=== PATIENT | female | born 1970 | race Caucasian/White ===

== ENCOUNTER 2022-01-18 11:38 | Observation (INO) ==
--- NOTE | 2022-01-18 11:44 | Emergency Department Note ---
Impression & Plan Acute pancreatitis, T2DM (type 2 diabetes mellitus), Elevated LFTs, Tobacco abuse ED Provider Note NAME: TAMMY CARTER AGE: 51 SEX: F : 1970 ARRIVES VIA: Ambulance INFORMANT: Patient, ED PROVIDER(S): Neymar Lemus MD Chief Complaint: Abdominal pain, chest pain, outpatient referral HPI: Patient was seen in the outpatient setting today due to concern for abdominal pain and chest pain. Patient states that her chest pain is achy and located across the anterior chest. No prior history of any heart disease but the patient does smoke. The patient denies any cough or fever. Patient states she does not take anything for her symptoms at home. The patient is associated mild diffuse abdominal pain with diarrhea. The patient does state that she has not seen any blood in the urine or stool. The patient denies any dysuria states sometimes she feels as though she might have some retention. Patient denies any alcohol use but the patient does use tobacco. Patient did not take anything for pain prior to arrival. Patient states that the pain has been fairly constant and that this began this morning. Patient states is 10 out of 10. The patient was seen in the outpatient setting and referred here for further evaluation and treatment. Per nursing report the patient was picked up by the ambulance standing outside of the clinic office as the patient had gone for smoke. ROS: See HPI for pertinent positives and negatives. A total of 10 systems were reviewed and otherwise negative. Past medical history: See below Surgical history: See below Social history: See below Physical Exam: GENERAL: NAD, wearing a mask, non-toxic. EYE EXAM: Normal conjunctiva. PERRL, no anisocoria and EOM's grossly intact w/o pain. OROPHARYNX: Dry mucus membranes. Grossly normal dentition. NECK: Supple, no nuchal rigidity, no adenopathy, non-tender. No signs of meningismus. LUNGS: Scant end inspiratory wheeze bilaterally. No obvious rhonchi. Normal chest wall mechanics. HEART: Tachycardic and regular, no MRG. ABDOMEN: Abdomen soft, mild diffuse discomfort, normo-active bowel sounds, no masses, no rebound or guarding. BACK: No CVA TTP. SKIN: No rashes and no bruising. UPPER EXTREMITIES: Upper extremities are grossly normal. LOWER EXTREMITIES: Grossly normal, no edema. NEURO EXAM: A&O x3, cranial nerves II-XII grossly intact, normal speech, moves all 4 extremities on command w/o issue. Differential diagnoses: Appendicitis, ovarian cyst, ovarian torsion, ectopic , TOA, PID, infections, diverticulitis, UTI, obstruction, mesenteric ischemia, aortic pathology, inflammatory bowel disease, renal colic, PUD, pancreatitis, biliary pathology, hernia, volvulus, constipation, as well as oth er pathologies. Cardiac ischemia, aortic dissection, pulmonary embolism, pneumothorax, pneumonia, pericarditis, myocarditis, esophageal rupture, GERD, cholecystitis, pancreatitis, musculoskeletal, as well as other pathologies. Course: Patient was seen and evaluated the bedside. Full history physical exam was performed. EKG interpreted by me Sinus tachycardia, first-degree AV block, rate of 112, prolonged MO, normal axis, normal QRS, no obvious ST changes. Motion artifact in V4. Imaging Studies: See Below Cardiac monitoring: An order was placed for continuous cardiac monitoring. The monitor shows a rate of 95 with sinus rhythm. MDM: Patient was seen due to concern for chest and abdominal pain. Blood work obtained along with a CT of the abdomen pelvis EKG and troponin. Patient was treated symptomatically with pain and nausea medication. Patient letter showed a normal white count H&H and platelet count. Kidney function was unremarkable. Patient does have an elevated BSG with associated pseudohyponatremia. Anion gap is slightly elevated at 13 but bicarb is normal. Believe DKA to be less likely. The patient did receive IV fluids. The patient does have mild transaminitis and elevation in lipase. Patient's urinalysis does not show obvious infection but does show ketones and glucose. The patient did receive IV fluids. Chest x- ray is clear. CT abdomen pelvis does show acute pancreatitis. No peripancreatic fluid collection. Patient does have hepatomegaly and hepatic steatosis. I did speak with the on-call hospitalist Gabe Ortega PA-C and the patient was admitted by Dr. Price. Past Med/Surg History Medical History Anxiety Bipolar 1 disorder Diabetic neuropathy Fatty liver HLD (hyperlipidemia) Hx of migraines Hypothyroidism T2DM (type 2 diabetes mellitus) Tobacco abuse Surgical History History of bilateral hip arthroplasty History of reduction mammoplasty Family History Mother CAMPUZANO (nonalcoholic steatohepatitis) Father Bipolar disorder Social History Smoking Status: Current every day smoker Tobacco Type: Cigarettes packs per day: 1; Do You Dip or Chew Tobacco: No; Tobacco Cessation Education Requested by Patient: No Hx Alcohol Use: No Hx Substance Use: No Preferred Language: Syrian Communication Ability: Effective Current Living Situation: Alone Feels Safe at Home: Yes Allergies Allergies Allergy/AdvReac Type Severity Reaction Status Date / Time cephalexin [From Keflex] Allergy Severe Vomiting Unverified 01/18/22 12:04 Sulfa (Sulfonamide Allergy Severe Vomiting Unverified 01/18/22 12:04 Antibiotics) Home Meds Home Medications Medication Instructions Recorded Confirmed amitriptyline 100 mg tablet 100 mg PO HS 01/18/22 01/18/22 atorvastatin 40 mg tablet 40 mg PO DAILY 01/18/22 01/18/22 doxepin 100 mg capsule 100 mg PO PM 01/18/22 01/18/22 dulaglutide 1.5 mg/0.5 mL 1.5 mg SUBCUT WK 01/18/22 01/18/22 subcutaneous pen injector (Trulicity) fremanezumab-vfrm 225 mg/1.5 mL 1 mg SUBCUT MONTHLY 01/18/22 01/18/22 subcutaneous syringe (Ajovy Syringe) magnesium oxide 400 mg PO DAILY 01/18/22 01/18/22 metformin 500 mg tablet,extended 500 mg PO QAM 01/18/22 01/18/22 release 24 hr pregabalin 75 mg capsule 150 mg PO HS 01/18/22 01/18/22 Results & Data (ED) Vital Signs Vital Signs - 24 hr 01/18/22 11:49 01/18/22 12:20 01/18/22 14:30 Temperature 36.9 C Temperature Source Oral Pulse Rate 81 Pulse Rate [Left Finger] 78 Pulse Rhythm Regular Pulse Rhythm [Left Finger] Regular Pulse Strength Normal Pulse Strength [Left Finger] Normal Respiratory Rate 16 16 Respiratory Effort / Characteristics Non-Labored Spontaneous Non-Labored Respiratory Depth Normal Normal Respiratory Pattern Regular Blood Pressure 156/116 H Blood Pressure [Left Arm] 185/99 H Blood Pressure Mean 129 Blood Pressure Mean [Left Arm] 127 Blood Pressure Position Sitting Blood Pressure Position [Left Arm] Standing Pulse Oximetry 93 98 97 Oxygen Delivery Method Room Air Room Air Room Air Sepsis Recent Fever Within 48 Hours No Sepsis New/Unexplained Change in Mental Status N/A Sepsis Action Taken by Nursing No Action Required Home Medications Current Medication List: was personally reviewed by me Laboratory Data Attestation: I reviewed the patient's lab results. Result diagrams: 01/18/22 12:12 01/18/22 12:12 Lab Results 01/18/22 01/18/22 01/18/22 Range/Units 12:12 12:12 12:12 WBC 9.75 (4.8-10.8) K/uL RBC 5.24 (4.2-5.4) M/uL Hgb 16.0 (12.0-16.0) g/dL Hct 45.1 (37-47) % MCV 86.1 (80-100) fL MCH 30.5 (25-34) pg MCHC 35.5 (32-36) g/dL RDW Std Deviation 40.9 (36.4-46.3) fL RDW Coeff of Javier 13.0 (11.5-14.5) % Plt Count 206 (130-400) K/uL MPV 10.8 H (7.4-10.4) fL Immature Gran % (Auto) 0.2 % Neut % (Auto) 64.9 % Lymph % (Auto) 27.2 % Jack % (Auto) 4.1 % Eos % (Auto) 2.9 % Baso % (Auto) 0.7 % Neut # (Auto) 6.33 (1.4-6.5) K/uL Lymph # (Auto) 2.65 (1.2-3.4) K/uL Jack # (Auto) 0.40 (0.11-0.59) K/uL Eos # (Auto) 0.28 (0-0.5) K/uL Baso # (Auto) 0.07 (0-0.2) K/uL Immature Gran # (Auto) 0.02 (0.00-0.02) K/uL Sodium 128 L (136-145) mmol/L Potassium 4.0 (3.5-5.1) mmol/L Chloride 93 L (98-107) mmol/L Carbon Dioxide 22 (21-32) mmol/L Anion Gap 13 H (3-11) BUN 17 (6-23) mg/dl Creatinine 1.04 (0.6-1.2) mg/dl Est Cr Clr Drug Dosing Not Reportable Est GFR ( Amer) 71.0 ml/min Est GFR (Non-Af Amer) 61.3 ml/min BUN/Creatinine Ratio 16.3 (10-20) Glucose 500 H* (70-99(Fasting)) mg/dl Calcium 9.9 (8.5-10.1) mg/dl Total Bilirubin 0.5 (0.2-1.0) mg/dl AST 70 H (13-39) U/L ALT 69 H (7-52) U/L Alkaline Phosphatase 175 H (34-104) U/L Troponin I < 0.03 (0-0.04) ng/ml Total Protein 8.0 (6.0-8.3) gm/dl Albumin 4.4 (3.4-5.0) gm/dl Globulin 3.6 (2.5-4.0) gm/dl Albumin/Globulin Ratio 1.2 (0.9-2) Lipase 211 H (11-82) U/L Urine Color Urine Appearance (Clear) Urine pH (4.5-7.5) Ur Specific Compton (1.000-1.030) Urine Protein (Negative) Urine Glucose (UA) (Negative) Urine Ketones (Negative) Urine Blood (Negative) Urine Nitrite (Negative) Urine Bilirubin (Negative) Urine Urobilinogen (Negative) Ur Leukocyte Esterase (Negative) Salicylates < 3.0 L (3.0-30) mg/dl Acetaminophen < 3 L (10-30) ug/ml Ethyl Alcohol mg/dL (<10.0) mg/dl 01/18/22 01/18/22 Range/Units 12:12 14:00 WBC (4.8-10.8) K/uL RBC (4.2-5.4) M/uL Hgb (12.0-16.0) g/dL Hct (37-47) % MCV (80-100) fL MCH (25-34) pg MCHC (32-36) g/dL RDW Std Deviation (36.4-46.3) fL RDW Coeff of Javier (11.5-14.5) % Plt Count (130-400) K/uL MPV (7.4-10.4) fL Immature Gran % (Auto) % Neut % (Auto) % Lymph % (Auto) % Jack % (Auto) % Eos % (Auto) % Baso % (Auto) % Neut # (Auto) (1.4-6.5) K/uL Lymph # (Auto) (1.2-3.4) K/uL Jack # (Auto) (0.11-0.59) K/uL Eos # (Auto) (0-0.5) K/uL Baso # (Auto) (0-0.2) K/uL Immature Gran # (Auto) (0.00-0.02) K/uL Sodium (136-145) mmol/L Potassium (3.5-5.1) mmol/L Chloride (98-107) mmol/L Carbon Dioxide (21-32) mmol/L Anion Gap (3-11) BUN (6-23) mg/dl Creatinine (0.6-1.2) mg/dl Est Cr Clr Drug Dosing Est GFR ( Amer) ml/min Est GFR (Non-Af Amer) ml/min BUN/Creatinine Ratio (10-20) Glucose (70-99(Fasting)) mg/dl Calcium (8.5-10.1) mg/dl Total Bilirubin (0.2-1.0) mg/dl AST (13-39) U/L ALT (7-52) U/L Alkaline Phosphatase (34-104) U/L Troponin I (0-0.04) ng/ml Total Protein (6.0-8.3) gm/dl Albumin (3.4-5.0) gm/dl Globulin (2.5-4.0) gm/dl Albumin/Globulin Ratio (0.9-2) Lipase (11-82) U/L Urine Color Yellow Urine Appearance Clear (Clear) Urine pH 6.5 (4.5-7.5) Ur Specific Compton 1.043 H (1.000-1.030) Urine Protein Negative (Negative) Urine Glucose (UA) 3+ H (Negative) Urine Ketones Trace H (Negative) Urine Blood Negative (Negative) Urine Nitrite Negative (Negative) Urine Bilirubin Negative (Negative) Urine Urobilinogen Negative (Negative) Ur Leukocyte Esterase Negative (Negative) Salicylates (3.0-30) mg/dl Acetaminophen (10-30) ug/ml Ethyl Alcohol mg/dL < 10.0 (<10.0) mg/dl Administered Medications Lactated Ringer's (Lr) 1,000 mls @ 200 mls/hr IV .Q5H VILLA Stop: 02/17/22 16:41 Last Admin: 01/18/22 17:01 Dose: 200 mls/hr Documented by: [id number] Discontinued Medications Sodium Chloride (Nss 1000ml) 1,000 mls @ 999 mls/hr IV .Q1H1M STA Stop: 01/18/22 13:01 Last Infusion: 01/18/22 13:34 Dose: 0 mls/hr Documented by: [id number] Admin: 01/18/22 12:17 Dose: 999 mls/hr Documented by: [id number] Sodium Chloride (Nss) 500 mls @ 999 mls/hr IV .Q31M ONE Stop: 01/18/22 14:15 Last Admin: 01/18/22 14:18 Dose: 999 mls/hr Documented by: [id number] Insulin Human Regular (Novolin-R Insulin Per Unit Charge) 8 units IV NOW STA Stop: 01/18/22 15:02 Last Admin: 01/18/22 15:13 Dose: 8 units Documented by: [id number] Cosigned by: [id number] Ioversol (Optiray 320 100ml) 94 ml IV ONCE ONE Stop: 01/18/22 14:06 Last Admin: 01/18/22 14:05 Dose: 94 ml Documented by: [id number] Lorazepam (Lorazepam 2 Mg/1 Ml Vial) 1 mg IV NOW STA Stop: 01/18/22 12:02 Last Admin: 01/18/22 12:17 Dose: 1 mg Documented by: [id number] Morphine Sulfate (Morphine Sulfate 2 Mg/Ml Carp) 2 mg IV NOW STA Stop: 01/18/22 15:49 Last Admin: 01/18/22 16:25 Dose: 2 mg Documented by: [id number] Ondansetron HCl (Ondansetron Inj 2 Mg/Ml 2 Ml Vial) 4 mg IV NOW STA Stop: 01/18/22 12:02 Last Admin: 01/18/22 12:17 Dose: 4 mg Documented by: [id number] Ondansetron HCl (Ondansetron Inj 2 Mg/Ml 2 Ml Vial) 4 mg IV NOW STA Stop: 01/18/22 13:46 Last Admin: 01/18/22 14:17 Dose: 4 mg Documented by: [id number] Imaging Data Radiologist's Impression: Abdomen/Pelvis CT 01/18/22 12:01 CT SCAN OF THE ABDOMEN AND PELVIS WITH IV CONTRAST CLINICAL HISTORY: Generalized abdominal pain. Nausea and vomiting. Elevated lipase and hepatic transaminases. COMPARISON STUDY: Lumbar spine radiographs dated 03/16/2021. TECHNIQUE: Following the IV administration of 24 cc of Optiray 320, CT scan of the abdomen and pelvis is performed from the lung bases to the proximal femora. Images are reviewed in the axial, sagittal, and coronal planes. IV contrast was administered without complication. A dose lowering technique was utilized a dhering to the principles of ALARA. CT DOSE: 562.03 mGy.cm FINDINGS: Lung bases: The heart is normal in size and without pericardial effusion. The lung bases are clear. There is a small hiatal hernia. Liver: The contrast-enhanced liver is enlarged, measuring 22.9 cm in length. The liver demonstrates diffusely diminished attenuation consistent with severe hepatic steatosis. Fatty sparing is noted adjacent to gallbladder fossa. Nodularity of the surface contour suggests early change of cirrhosis. There is no intrahepatic biliary ductal dilatation. The hepatic veins and portal veins are patent. Gallbladder: Unremarkable. Spleen: Normal in size and attenuation. Pancreas: The pancreatic head and neck appear enlarged and edematous with surrounding inflammation and fluid. The appearance is typical for acute pancr eatitis. The pancreatic duct is normal in caliber. The gland enhances throughout. No organized peripancreatic fluid collection is identified. The splenic vein is patent. Adrenal glands: Unremarkable. Kidneys: The contrast enhanced kidneys are normal in size and without hydronephrosis. The kidneys enhance symmetrically. Abdominal vasculature: The abdominal aorta is normal in course and caliber. Bowel: Moderate fecal retention is seen throughout the colon. No bowel obstruction is identified. Wall thickening of the duodenum is likely related to adjacent pancreatitis. The appendix is well-visualized and normal. Peritoneum: There is no intraperitoneal free air or abdominal ascites. Lymphadenopathy: None. Pelvic viscera: Evaluation of the pelvis is severely degraded by streak artifact from bilateral hip arthroplasties. The bladder, uterus, and adnexa are normal as imaged. Skeletal structures: No lytic or blastic lesions are seen. Bilateral hip arthroplasties are in place. IMPRESSION: 1. Findings are consistent with acute pancreatitis. 2. The gland enhances throughout and no organized peripancreatic fluid collection is identified. 3. Hepatomegaly and severe hepatic steatosis. 4. Nodularity of the hepatic surface contour suggests early morphologic change of cirrhosis. 5. Additional findings as above. ACT 112: Negative or not required by law. Electronically signed by: Ranjit Colindres M.D. 01/18/2022 2:15 PM Chest X-Ray 01/18/22 13:46 XR chest 1V portable HISTORY: Atypical chest pain COMPARISON: None. FINDINGS: The lungs are clear. Cardiac silhouette is normal in size. No pleural effusions. No pneumothorax. IMPRESSION: No acute process. ACT 112: Negative or not required by law. Electronically signed by: Yash Biggs M.D. 01/18/2022 2:18 PM Discharge Plan Visit Data Chief Complaint: Abdominal Pain ED Provider: Neymar Lemus Discharge Problem: Acute pancreatitis, T2DM (type 2 diabetes mellitus), Elevated LFTs, Tobacco abuse Patient Disposition: Admitted As Inpatient Discharge Instructions Interventions: ED Discharge Assessment Last Done: 01/18/22 16:30
[2022-01-18] MEDS ORDERED: ONDANSETRON INJ 2 MG/ML 2 ML VIAL IV STA ×2 (12:01→13:45)
[2022-01-18] MEDS ORDERED: LORazepam 2 MG/1 ML VIAL IV STA (12:01)
[2022-01-18] MEDS ORDERED: SODIUM CHLORIDE 0.9% 1000ML 1,000 ML IV STA (12:01)
[2022-01-18 12:38] LABS: Basophils # (auto) 0.07 K/uL (0-0.2); Basophils % (auto) 0.7 %; Eosinophils # (auto) 0.28 K/uL (0-0.5); Eosinophils % (auto) 2.9 %; Hematocrit (blood only) 45.1 % (37-47); Immature Granulocytes # (auto) 0.02 K/uL (0.00-0.02); Immature Granulocytes % (auto) 0.2 %; Lymphocytes # (auto) 2.65 K/uL (1.2-3.4); Lymphocytes % (auto) 27.2 %; Mean Corpuscular Hemoglobin 30.5 pg (25-34); Mean Corpuscular Hgb Conc 35.5 g/dL (32-36); Mean Corpuscular Volume 86.1 fL (80-100); Mean Platelet Volume 10.8 fL (7.4-10.4); Monocytes % (auto) 4.1 %; Neutrophils # (auto) 6.33 K/uL (1.4-6.5); Neutrophils % (auto) 64.9 %; Platelet Count 206 K/uL (130-400); RDW Standard Deviation 40.9 fL (36.4-46.3); Red Blood Count 5.24 M/uL (4.2-5.4); White Blood Count 9.75 K/uL (4.8-10.8)
[2022-01-18 13:10] LABS: Acetaminophen < 3 ug/ml (10-30); Salicylate < 3.0 mg/dl (3.0-30); Troponin I < 0.03 ng/ml (0-0.04)
[2022-01-18 13:25] LABS: Alanine Aminotransferase 69 U/L (7-52); Albumin Globulin Ratio 1.2 (0.9-2); Albumin Level 4.4 gm/dl (3.4-5.0); Alkaline Phosphatase 175 U/L (34-104); Anion Gap 13 (3-11); Aspartate Aminotransferase 70 U/L (13-39); BUN Creatinine Ratio 16.3 (10-20); Bilirubin,Total 0.5 mg/dl (0.2-1.0); Blood Urea Nitrogen 17 mg/dl (6-23); Calcium 9.9 mg/dl (8.5-10.1); Carbon Dioxide 22 mmol/L (21-32); Chloride 93 mmol/L (98-107); Est GFR (Non-African American) 61.3 ml/min; Globulin 3.6 gm/dl (2.5-4.0); Glucose 500 mg/dl (70-99(Fasting)); Lipase 211 U/L (11-82); Sodium 128 mmol/L (136-145)
[2022-01-18] MEDS ORDERED: SODIUM CHLORIDE 0.9% 500 ML IV ONE (13:45)
[2022-01-18] MEDS ORDERED: OPTIRAY 320 100ml IV ONE (14:05)
--- NOTE | 2022-01-18 14:17 | CT Scan Report ---
CT SCAN OF THE ABDOMEN AND PELVIS WITH IV CONTRAST CLINICAL HISTORY: Generalized abdominal pain. Nausea and vomiting. Elevated lipase and hepatic parker saminases. COMPARISON STUDY: Lumbar spine radiographs dated 03/16/2021. TECHNIQUE: Following the IV administration of 24 cc of Optiray 320, CT scan of the abdomen and pelvi s is performed from the lung bases to the proximal femora. Images are reviewed in the axial, sagittal , and coronal planes. IV contrast was administered without complication. A dose lowering technique wa s utilized adhering to the principles of ALARA. CT DOSE: 562.03 mGy.cm FINDINGS: Lung bases: The heart is normal in size and without pericardial effusion. The lung bases are clear. T here is a small hiatal hernia. Liver: The contrast-enhanced liver is enlarged, measuring 22.9 cm in length. The liver demonstrates d iffusely diminished attenuation consistent with severe hepatic steatosis. Fatty sparing is noted prince cent to gallbladder fossa. Nodularity of the surface contour suggests early change of cirrhosis. Ther e is no intrahepatic biliary ductal dilatation. The hepatic veins and portal veins are patent. Gallbladder: Unremarkable. Spleen: Normal in size and attenuation. Pancreas: The pancreatic head and neck appear enlarged and edematous with surrounding inflammation an d fluid. The appearance is typical for acute pancreatitis. The pancreatic duct is normal in caliber. The gland enhances throughout. No organized peripancreatic fluid collection is identified. The spleni c vein is patent. Adrenal glands: Unremarkable. Kidneys: The contrast enhanced kidneys are normal in size and without hydronephrosis. The kidneys enh ance symmetrically. Abdominal vasculature: The abdominal aorta is normal in course and caliber. Bowel: Moderate fecal retention is seen throughout the colon. No bowel obstruction is identified. Wal l thickening of the duodenum is likely related to adjacent pancreatitis. The appendix is well-visual ized and normal. Peritoneum: There is no intraperitoneal free air or abdominal ascites. Lymphadenopathy: None. Pelvic viscera: Evaluation of the pelvis is severely degraded by streak artifact from bilateral hip a rthroplasties. The bladder, uterus, and adnexa are normal as imaged. Skeletal structures: No lytic or blastic lesions are seen. Bilateral hip arthroplasties are in place. IMPRESSION: 1. Findings are consistent with acute pancreatitis. 2. The gland enhances throughout and no organized peripancreatic fluid collection is identified. 3. Hepatomegaly and severe hepatic steatosis. 4. Nodularity of the hepatic surface contour suggests early morphologic change of cirrhosis. 5. Additional findings as above. ACT 112: Negative or not required by law. Electronically signed by: Ranjit Colindres M.D. 01/18/2022 2:15 PM
--- NOTE | 2022-01-18 14:19 | XRay Report ---
XR chest 1V portable HISTORY: Atypical chest pain COMPARISON: None. FINDINGS: The lungs are clear. Cardiac silhouette is normal in size. No pleural effusions. No pneumot horax. IMPRESSION: No acute process. ACT 112: Negative or not required by law. Electronically signed by: Yash Biggs M.D. 01/18/2022 2:18 PM
[2022-01-18 14:39] LABS: Appearance Urine Clear (Clear); Bilirubin Urine Negative (Negative); Blood Urine Negative (Negative); Color Urine Yellow; Glucose Urine UA 3+ (Negative); Ketones Urine Trace (Negative); Leukocyte Esterase Urine Negative (Negative); Nitrite Urine Negative (Negative); Protein Urine Negative (Negative); Specific Gravity Urine 1.043 (1.000-1.030); Urobilinogen Urine Negative (Negative); pH Urine 6.5 (4.5-7.5)
[2022-01-18] MEDS ORDERED: NovoLIN-R INSULIN PER UNIT CHARGE IV STA (15:01)
[2022-01-18] MEDS ORDERED: LACTATED RINGER'S 1,000 ML IV SCH (15:15)
--- NOTE | 2022-01-18 15:37 | History & Physical Report ---
Date of Service January 18, 2022 Assessment & Plan (1) Acute pancreatitis: (2) Elevated LFTs: (3) T2DM (type 2 diabetes mellitus): (4) Bipolar 1 disorder: (5) Tobacco abuse: Plan: This is a 51-year-old female who has significant past medical history of uncontrolled T2DM, diabetic autonomic neuropathy, HLD, hypothyroidism, bipolar disorder type I, anxiety, tobacco abuse who presents to ED secondary to abdominal pain x1 day. Acute pancreatitis Elevated LFTs Admit to med telemetry secondary to hyperglycemia Continue IV fluids with LR at 200/h bowel rest, NPO Analgesia as needed Consult gastroenterology CT abdomen pelvis revealed findings consistent with acute pancreatitis, hepatomegaly and severe hepatic steatosis were also noted along with early morphologic changes of cirrhosis No evidence of biliary obstruction Obtain lipid panel in a.m. obtain hepatitis panel T2DM, uncontrolled A1c 10.5 as outpatient, 11/2021 On Metformin and Trulicity as outpatient, will hold BSG 500 on arrival, give 8 units IV regular insulin x1 now Lantus/NovoLog per protocol, glycemic pharmacy consulted Obtain A1c in a.m. Pseudohyponatremia in setting of hyperglycemia Corrected sodium 134, monitor with hydration Tobacco abuse Smoking cessation, patient declines nicotine patch Bipolar disorder Anxiety Continue amitriptyline and doxepin DVT prophylaxis: Lovenox Dispo: Med telemetry until blood sugar more stable and then can transfer up to [facility] PCP: [facility] Full code Patient was seen and examined in collaboration with Dr. Price, please see addendum History of Present Illness Chief Complaint: Abdominal pain x1 day. Primary Care Provider: Asher Hurtado MD This is a 51-year-old female who has significant past medical history of uncontrolled T2DM, diabetic autonomic neuropathy, HLD, hypothyroidism, bipolar disorder type I, anxiety, tobacco abuse who presents to ED secondary to abdominal pain x1 day. She states she was in her normal state of health yeste rday. She woke up this morning with excruciating epigastric pain that was nonradiating. Pain is currently rated as a 10 out of 10. Nothing has improved pain. Movement and touching abdomen makes pain worse. She has never experienced this before. She denies any alcohol use. She is a daily tobacco user at half a pack to a pack a day. She denies any illicit drug use or significant NSAID use. She does take occasional Excedrin secondary to history of migraines. Her last migraine was this morning. She denies taking her medications this morning. She admits to recently starting Lyrica ~ 1 week ago. She denies any recent fever, chills, sweats, lightheadedness, dizziness, syncope, chest pain, shortness of breath, cough, URI symptoms, dysuria, increased urgency or frequency with urination, melena or hematochezia. She further denies any hematemesis or hemoptysis. She does complain of nausea and vomiting. She describes the vomiting as bilious-like material. Overall has had poor appetite today and only drank 1 sparkling grape juice. Her appetite was normal yesterday. Denies recent surgery. In ED patient remained hemodynamically stable although significantly hypertensive. Her lab work was consistent with elevated lipase at 211, AST 70, ALT 69, alk phos 175, glucose 500, corrected sodium of 134. She received 1 L of IV fluid, IV Zofran and oral lorazepam prior to my evaluation. Her epic chart was reviewed and no prior cardiac testing was able to be found. Her most recent A1c was 10.5 on 11/16/2021. Allergies Allergy/AdvReac Type Severity Reaction Status Date / Time cephalexin [From Keflex] Allergy Severe Vomiting Unverified 01/18/22 12:04 Sulfa (Sulfonamide Allergy Severe Vomiting Unverified 01/18/22 12:04 Antibiotics) Home Medications Medication Instructions Recorded Confirmed Type amitriptyline 100 mg tablet 100 mg PO HS 01/18/22 01/18/22 History atorvastatin 40 mg tablet 40 mg PO DAILY 01/18/22 01/18/22 History doxepin 100 mg capsule 100 mg PO PM 01/18/22 01/18/22 History dulaglutide 1.5 mg/0.5 mL 1.5 mg SUBCUT WK 01/18/22 01/18/22 History subcutaneous pen injector (Trulicity) fremanezumab-vfrm 225 mg/1.5 mL 1 mg SUBCUT MONTHLY 01/18/22 01/18/22 History subcutaneous syringe (Ajovy Syringe) magnesium oxide 400 mg PO DAILY 01/18/22 01/18/22 History metformin 500 mg tablet,extended 500 mg PO QAM 01/18/22 01/18/22 History release 24 hr pregabalin 75 mg capsule 150 mg PO HS 01/18/22 01/18/22 History Past Med/Surg History Medical History (Updated 01/18/22 @ 15:31 by Cassie Gordon PA-C) Anxiety Bipolar 1 disorder Diabetic neuropathy Fatty liver HLD (hyperlipidemia) Hx of migraines Hypothyroidism T2DM (type 2 diabetes mellitus) Tobacco abuse Surgical History (Updated 01/18/22 @ 15:28 by Cassie Gordon PA-C) History of bilateral hip arthroplasty History of reduction mammoplasty Family History (Updated 01/18/22 @ 15:28 by Cassie Gordon PA-C) Mother CAMPUZANO (nonalcoholic steatohepatitis) Father Bipolar disorder Social History (Updated 01/18/22 @ 15:28 by Cassie Gordon PA-C) Smoking Status: Current every day smoker Tobacco Type: Cigarettes packs per day: 1; Do You Dip or Chew Tobacco: No; Tobacco Cessation Education Requested by Patient: No Hx Alcohol Use: No Hx Substance Use: No Preferred Language: Panamanian Communication Ability: Effective Current Living Situation: Alone Feels Safe at Home: Yes Review of Systems Review of Systems: All systems reviewed & are unremarkable except as noted in HPI & below Physical Exam Physical Exam: Constitutional: WD/WN, F, anxious, flight of ideas and very tangential in conversation, vitals as above, NAD, sitting up in bed, pleasant, conversing easily Head: Normocephalic, Atraumatic Eyes: PERRL, conjunctivae normal, anicteric sclerae ENMT: external ear and nose normal, oropharynx normal Neck: trachea midline, no thyromegaly normal visual inspection Respiratory: normal respiratory effort, lungs clear to auscultation, no wheeze, rales, rhonchi. Normal insp/exp effort, no accessory muscle use Cardiovascular: RRR, no murmur, no edema Vessels: no JVD or carotid bruit Chest: normal inspection of chest Abdomen: normal bowel sounds, soft, +pain to palpation in epigastrum Musculoskeletal: no cyanosis or clubbing, extremities motor strength 5/5 Skin: no rashes, warm and dry normal turgor Neurologic: PERRL, EOMI, accommodation nl, no face palsy, no dysarthria CN's II-XI intact bilaterally and moves all extremities Psychiatric: A+Ox3, euthymic affect Lymphatic: no cervical or axillary lymphadenopathy : deferred Results & Data Results & Data ([facility]) Vital Signs (Past 12 Hours) Vital Signs Temp Pulse Pulse Resp BP BP Pulse Ox 01/18/22 14:30 78 16 185/99 H 97 01/18/22 12:20 98 01/18/22 11:49 36.9 C 81 16 156/116 H 93 Diagnostic Findings Abdomen/Pelvis CT 01/18/22 12:01 CT SCAN OF THE ABDOMEN AND PELVIS WITH IV CONTRAST CLINICAL HISTORY: Generalized abdominal pain. Nausea and vomiting. Elevated lipase and hepatic transaminases. COMPARISON STUDY: Lumbar spine radiographs dated 03/16/2021. TECHNIQUE: Following the IV administration of 24 cc of Optiray 320, CT scan of the abdomen and pelvis is performed from the lung bases to the proximal femora. Images are reviewed in the axial, sagittal, and coronal planes. IV contrast was administered without complication. A dose lowering technique was utilized adhering to the principles of ALARA. CT DOSE: 562.03 mGy.cm FINDINGS: Lung bases: The heart is normal in size and without pericardial effusion. The lung bases are clear. There is a small hiatal hernia. Liver: The contrast-enhanced liver is enlarged, measuring 22.9 cm in length. The liver demonstrates diffusely diminished attenuation consistent with severe hepatic steatosis. Fatty sparing is noted adjacent to gallbladder fossa. No dularity of the surface contour suggests early change of cirrhosis. There is no intrahepatic biliary ductal dilatation. The hepatic veins and portal veins are patent. Gallbladder: Unremarkable. Spleen: Normal in size and attenuation. Pancreas: The pancreatic head and neck appear enlarged and edematous with surrounding inflammation and fluid. The appearance is typical for acute pancreatitis. The pancreatic duct is normal in caliber. The gland enhances throughout. No organized peripancreatic fluid collection is identified. The splenic vein is patent. Adrenal glands: Unremarkable. Kidneys: The contrast enhanced kidneys are normal in size and without hydronephrosis. The kidneys enhance symmetrically. Abdominal vasculature: The abdominal aorta is normal in course and caliber. Bowel: Moderate fecal retention is seen throughout the colon. No bowel obstruction is identified. Wall thickening of the duodenum is likely related to adjacent pancreatitis. The appendix is well-visualized and normal. Peritoneum: There is no intraperitoneal free air or abdominal ascites. Lymphadenopathy: None. Pelvic viscera: Evaluation of the pelvis is severely degraded by streak artifact from bilateral hip arthroplasties. The bladder, uterus, and adnexa are normal as imaged. Skeletal structures: No lytic or blastic lesions are seen. Bilateral hip arthroplasties are in place. IMPRESSION: 1. Findings are consistent with acute pancreatitis. 2. The gland enhances throughout and no organized peripancreatic fluid collection is identified. 3. Hepatomegaly and severe hepatic steatosis. 4. Nodularity of the hepatic surface contour suggests early morphologic change of cirrhosis. 5. Additional findings as above. ACT 112: Negative or not required by law. Electronically signed by: Ranjit Colindres M.D. 01/18/2022 2:15 PM Chest X-Ray 01/18/22 13:46 XR chest 1V portable HISTORY: Atypical chest pain COMPARISON: None. FINDINGS: The lungs are clear. Cardiac silhouette is normal in size. No pleural effusions. No pneumothorax. IMPRESSION: No acute process. ACT 112: Negative or not required by law. Electronically signed by: Yash Biggs M.D. 01/18/2022 2:18 PM Medications Administered Medication List Discontinued Medications Sodium Chloride (Nss 1000ml) 1,000 mls @ 999 mls/hr IV .Q1H1M STA Stop: 01/18/22 13:01 Last Infusion: 01/18/22 13:34 Dose: 0 mls/hr Documented by: [id number] Admin: 01/18/22 12:17 Dose: 999 mls/hr Documented by: [id number] Sodium Chloride (Nss) 500 mls @ 999 mls/hr IV .Q31M ONE Stop: 01/18/22 14:15 Last Admin: 01/18/22 14:18 Dose: 999 mls/hr Documented by: [id number] Insulin Human Regular (Novolin-R Insulin Per Unit Charge) 8 units IV NOW STA Stop: 01/18/22 15:02 Last Admin: 01/18/22 15:13 Dose: 8 units Documented by: [id number] Cosigned by: [id number] Ioversol (Optiray 320 100ml) 94 ml IV ONCE ONE Stop: 01/18/22 14:06 Last Admin: 01/18/22 14:05 Dose: 94 ml Documented by: [id number] Lorazepam (Lorazepam 2 Mg/1 Ml Vial) 1 mg IV NOW STA Stop: 01/18/22 12:02 Last Admin: 01/18/22 12:17 Dose: 1 mg Documented by: [id number] Ondansetron HCl (Ondansetron Inj 2 Mg/Ml 2 Ml Vial) 4 mg IV NOW STA Stop: 01/18/22 12:02 Last Admin: 01/18/22 12:17 Dose: 4 mg Documented by: [id number] Ondansetron HCl (Ondansetron Inj 2 Mg/Ml 2 Ml Vial) 4 mg IV NOW STA Stop: 01/18/22 13:46 Last Admin: 01/18/22 14:17 Dose: 4 mg Documented by: [id number] ECG Rate (beats per minute): 112 Rhythm: sinus tachycardia COVID-19 Results Results COVID-19 Adm Lab Results: RBC 5.24 M/uL (4.2-5.4) 01/18/22 WBC 9.75 K/uL (4.8-10.8) 01/18/22 Hgb 16.0 g/dL (12.0-16.0) 01/18/22 Hct 45.1 % (37-47) 01/18/22 Plt Count 206 K/uL (130-400) 01/18/22 Neutrophils (%) (Auto) 64.9 % 01/18/22 Lymphocytes (%) (Auto) 27.2 % 01/18/22 Monocytes # (Auto) 0.40 K/uL (0.11-0.59) 01/18/22 Eosinophils # (Auto) 0.28 K/uL (0-0.5) 01/18/22 Immature Granulocyte % (Auto) 0.2 % 01/18/22 Neutrophils # (Auto) 6.33 K/uL (1.4-6.5) 01/18/22 Lymphocytes # (Auto) 2.65 K/uL (1.2-3.4) 01/18/22 Monocytes # (Auto) 0.40 K/uL (0.11-0.59) 01/18/22 Eosinophils # (Auto) 0.28 K/uL (0-0.5) 01/18/22 Basophils # (Auto) 0.07 K/uL (0-0.2) 01/18/22 Immature Granulocyte # (Auto) 0.02 K/uL (0.00-0.02) 01/18/22 Na 128 mmol/L (136-145) L 01/18/22 K 4.0 mmol/L (3.5-5.1) 01/18/22 Cl 93 mmol/L (98-107) L 01/18/22 CO2 22 mmol/L (21-32) 01/18/22 Anion Gap 13 (3-11) H 01/18/22 BUN 17 mg/dl (6-23) 01/18/22 Creatinine 1.04 mg/dl (0.6-1.2) 01/18/22 BUN/Creatinine Ratio 16.3 (10-20) 01/18/22 Glucose Level 500 mg/dl (70-99(Fasting)) H* 01/18/22 Ca 9.9 mg/dl (8.5-10.1) 01/18/22 Total Bilirubin 0.5 mg/dl (0.2-1.0) 01/18/22 AST/SGOT 70 U/L (13-39) H 01/18/22 ALT/SGPT 69 U/L (7-52) H 01/18/22 Alkaline Phosphatase 175 U/L (34-104) H 01/18/22 Total Protein 8.0 gm/dl (6.0-8.3) 01/18/22 Albumin 4.4 gm/dl (3.4-5.0) 01/18/22 Globulin 3.6 gm/dl (2.5-4.0) 01/18/22 Albumin/Globulin Ratio 1.2 (0.9-2) 01/18/22 Troponin I < 0.03 ng/ml (0-0.04) 01/18/22 SARS-CoV-2, RNA, NAAT NEGATIVE (NEGATIVE) 01/18/22 Chest X-Ray 01/18/22 Code Status & VTE Plan Code Status FULL CODE VTE Prophylaxis Plan VTE Prophylaxis will be ordered: Yes
[2022-01-18] MEDS ORDERED: MoRPHine SULFATE 2 MG/ML CARP IV STA (15:48)
[2022-01-18] MEDS ORDERED: CARBOHYDRATES FOR HYPOGLYCEMIA PO PRN (16:42)
[2022-01-18] MEDS ORDERED: GLUCOSE 40% GEL 15 GM TUBE PO PRN (16:42)
[2022-01-18] MEDS ORDERED: GLUCOSE 10 TABS/TUBE PO PRN (16:42)
[2022-01-18] MEDS ORDERED: DEXTROSE 50% 50 ML SYRINGE IV PRN (16:42)
[2022-01-18] MEDS ORDERED: MAGNESIUM HYDROXIDE SUSP 30 ML UDC PO PRN (16:42)
[2022-01-18] MEDS ORDERED: POLYETHYLENE (MIRALAX) 17 GM PACK PO PRN (16:42)
[2022-01-18] MEDS ORDERED: GLUCAGON FOR INJ 1 MG VIAL SQ PRN (16:42)
[2022-01-18] MEDS ORDERED: ALUMINUM/MAGNESIUM SUSP 30 ML UDC PO PRN (16:42)
[2022-01-18] MEDS ORDERED: INSULIN ASPART PER UNIT SC SCH (16:42)
[2022-01-18] MEDS ORDERED: PHARMACY GLYCEMIC MGMT CONSULT PRN (16:42)
[2022-01-18] MEDS: LACTATED RINGER'S 1,000 ML IV SCH ×2 (17:01→23:18)
[2022-01-18] MEDS: MoRPHine SULFATE 4 MG/ML 1 ML CARP\\VIAL IV PRN (17:47)
[2022-01-18] MEDS: INSULIN ASPART PER UNIT SC SCH ×2 (17:50→20:44)
[2022-01-18] MEDS: oxyCODONE HCL IR 5 MG TAB (IMMEDIATE RELEASE) PO PRN (19:32)
[2022-01-18 20:24] LABS: BUN Creatinine Ratio 16.9 (10-20); Calcium 8.7 mg/dl (8.5-10.1); Creatinine Clr Calc Pharmacy 92.8 ml/min; Est GFR (African American) 102.2 ml/min; Est GFR (Non-African American) 88.2 ml/min; Potassium 3.5 mmol/L (3.5-5.1)
[2022-01-18] MEDS: AMITRIPTYLINE HCL 100 MG TAB PO SCH (20:46)
[2022-01-18] MEDS: DOXEPIN HCL 50 MG CAPSULE PO SCH (20:46)
[2022-01-18] MEDS: PREGABALIN 150 MG CAP PO SCH (20:46)
[2022-01-18] MEDS: ENOXAPARIN INJ 40 MG/0.4 ML SYR SQ SCH (20:47)
[2022-01-18] MEDS ORDERED: INSULIN GLARGINE SOLOSTAR 100 UNITS/ML 3 ML PEN SC SCH (21:00)
[2022-01-19] MEDS: INSULIN ASPART PER UNIT SC SCH ×6 (00:46→21:59)
[2022-01-19] MEDS: MoRPHine SULFATE 4 MG/ML 1 ML CARP\\VIAL IV PRN ×4 (00:49→17:00)
[2022-01-19] MEDS: ACETAMINOPHEN 325 MG TAB PO PRN (03:49)
[2022-01-19] MEDS: LACTATED RINGER'S 1,000 ML IV SCH ×2 (04:36→08:52)
[2022-01-19 06:19] LABS: Basophils # (auto) 0.03 K/uL (0-0.2); Basophils % (auto) 0.4 %; Eosinophils # (auto) 0.25 K/uL (0-0.5); Hematocrit (blood only) 37.8 % (37-47); Hemoglobin 13.2 g/dL (12.0-16.0); Immature Granulocytes # (auto) 0.02 K/uL (0.00-0.02); Immature Granulocytes % (auto) 0.2 %; Lymphocytes # (auto) 2.38 K/uL (1.2-3.4); Lymphocytes % (auto) 28.1 %; Mean Corpuscular Hemoglobin 30.1 pg (25-34); Mean Corpuscular Hgb Conc 34.9 g/dL (32-36); Mean Corpuscular Volume 86.1 fL (80-100); Mean Platelet Volume 10.5 fL (7.4-10.4); Monocytes # (auto) 0.49 K/uL (0.11-0.59); Monocytes % (auto) 5.8 %; Neutrophils % (auto) 62.5 %; Platelet Count 178 K/uL (130-400); RDW Coefficient of Variation 13.1 % (11.5-14.5); RDW Standard Deviation 41.6 fL (36.4-46.3); Red Blood Count 4.39 M/uL (4.2-5.4); White Blood Count 8.47 K/uL (4.8-10.8)
[2022-01-19 06:37] LABS: Estimated Average Glucose 415 mg/dl; Hemoglobin A1C 16.1 % (4.5-5.6)
[2022-01-19 06:44] LABS: Alanine Aminotransferase 41 U/L (7-52); Albumin Globulin Ratio 1.3 (0.9-2); Albumin Level 3.3 gm/dl (3.4-5.0); Alkaline Phosphatase 128 U/L (34-104); Anion Gap 8 (3-11); Aspartate Aminotransferase 31 U/L (13-39); BUN Creatinine Ratio 17.6 (10-20); Bilirubin,Total 0.5 mg/dl (0.2-1.0); Blood Urea Nitrogen 12 mg/dl (6-23); Calcium 8.4 mg/dl (8.5-10.1); Carbon Dioxide 24 mmol/L (21-32); Chloride 102 mmol/L (98-107); Cholesterol 343 mg/dl (0-200); Creatinine Clr Calc Pharmacy 103.4 ml/min; Est GFR (African American) 115.7 ml/min; Est GFR (Non-African American) 99.9 ml/min; Globulin 2.5 gm/dl (2.5-4.0); Glucose 215 mg/dl (70-99(Fasting)); Lipase 203 U/L (11-82); Magnesium 1.7 mg/dl (1.7-2.4); Potassium 3.3 mmol/L (3.5-5.1); Sodium 134 mmol/L (136-145); Total Protein 5.8 gm/dl (6.0-8.3)
[2022-01-19 06:56] LABS: Chol HDL Ratio 13.7 (0-5); HDL Cholesterol 25 mg/dl; Triglycerides 1474 mg/dl (0-150)
--- NOTE | 2022-01-19 07:15 | Electrocardiogram Report ---
Test Reason : Blood Pressure : / mmHG Vent. Rate : 112 BPM Atrial Rate : 112 BPM P-R Int : 202 ms QRS Dur : 074 ms QT Int : 346 ms P-R-T Axes : 037 000 044 degrees QTc Int : 472 ms Poor data quality, interpretation may be adversely affected Sinus tachycardia Possible Left atrial enlargement Borderline ECG No previous ECGs available Confirmed by Aj Short ([id number]) on 01/19/2022 7:15:23 AM Referred By: REFERRED SELF Confirmed By:Aj Short
[2022-01-19] MEDS: MAGNESIUM OXIDE 400 MG TAB PO SCH (08:53)
[2022-01-19] MEDS ORDERED: ATORVASTATIN 40 MG TAB PO SCH (09:00)
[2022-01-19] MEDS ORDERED: INSULIN REGULAR 250 UNITS in SODIUM CHLORIDE 0.9% 247.5 ML IV SCH (10:30)
[2022-01-19] MEDS: POTASSIUM CHLORIDE / WTR 10 MEQ/100 ML PLCT IV SCH ×3 (10:44→12:52)
[2022-01-19] MEDS ORDERED: D5W AND NSS 1,000 ML IV SCH (10:45)
[2022-01-19] MEDS: D5NSS + 20MEQ KCL 20 MEQ/1,000 ML BAG IV SCH ×3 (11:10→22:35)
--- NOTE | 2022-01-19 11:27 | Pharmacy Report ---
Pharmacy Glycemic Short Note 2 - Date of Service January 19, 2022 - Glycemic Short BSG Results (Last 24 hours): 01/18/22 01/18/22 01/18/22 12:12 14:53 14:55 Glucose 500 H* POC Glucose 366 H* 426 H* 01/18/22 01/18/22 01/18/22 16:20 17:01 19:59 Glucose 265 H POC Glucose 346 H* 342 H* 01/18/22 01/19/22 01/19/22 20:10 00:39 03:25 Glucose POC Glucose 294 H 226 H 265 H 01/19/22 01/19/22 01/19/22 05:32 07:52 10:34 Glucose 215 H POC Glucose 231 H 180 H OUTPATIENT ANTIDIABETIC REGIMEN: * Trulicity, metformin ASSESSMENT: * 51 year old admitted with uncontrolled diabetes, bipolar, tobacco abuse presenting to ER with abdominal pain. Per notes, last A1c 10.5 11/2021. Only on trulicity and metformin at home. * TG this AM came back elevated, concerns for hypertriglyceridemia induced pancreatitis. Plan to start insulin drip at set rate of 0.1 units/kg/hr and dextrose fluids. Provider aware fluids may need to be adjusted/titrated based upon BSG values. He will monitor * Patient did receive about ~30 units of insulin yesterday, of which 15 units were basal insulin * Will hold further basal insulin at this time, will utilize novolog with insulin drip just for carb coverage if needed PLAN FOR INPATIENT GLYCEMIC CONTROL: * Hold outpatient oral diabetes medications * Insulin drip - started for hypertriglyceridemia * Basal insulin * Lantus - hold * Bolus insulin * NovoLog carb coverage only with insulin drip
--- NOTE | 2022-01-19 11:46 | Hospitalist Progress Note ---
Date of Service January 19, 2022 Assessment & Plan (1) Acute pancreatitis: (2) Elevated LFTs: (3) T2DM (type 2 diabetes mellitus): (4) Bipolar 1 disorder: (5) Tobacco abuse: Plan: This is a 51-year-old female who has significant past medical history of uncontrolled T2DM, diabetic autonomic neuropathy, HLD, hypothyroidism, bipolar disorder type I, anxiety, tobacco abuse who presents to ED secondary to abdominal pain x1 day. Acute pancreatitis Elevated LFTs Possible related to Hypertriglyceridemia or Trulicity Lipid panel with Triglycerides 1474 nd cholesterol 343 Lipase on admision 211, slightly decreased to 203 AST and ALT normalized CT abdomen pelvis revealed findings consistent with acute pancreatitis, hepatomegaly and severe hepatic steatosis were also noted along with early morphologic changes of cirrhosis Currently on IV fluids with LR at 200/h Will start on IV insulin drip to help lower the triglycerides level Will change IVF to D5 NS at 150ml Will repeat Triglycerides level after 12hrs Gastro on board Case discussed with gastro that recommended to continue hydration Starting on clear liquid diet Consider to discontinue insulin drip if starting to be hypoglycemia clinically improved T2DM, uncontrolled Most recent Hba1c 16.1 On Metformin and Trulicity as outpatient, continue to hold Currently on IV insulin drip due to Hypertriglyceridemia Will discussed with patient about to start on long acting insulin subq on discharge due to A1C 16.1 pharmacy on board for glycemic management Will consult community health educator Continue monitor BS Pseudohyponatremia in setting of hyperglycemia Corrected sodium 134 monitor with hydration Tobacco abuse Counseling on Smoking cessation, patient declines nicotine patch Bipolar disorder Anxiety Continue amitriptyline and doxepin DVT prophylaxis: Randall PCP: [facility] Full code Disposition Pt would like to be discharge tomorrow in the morning to check on her dog that is alone in her appartment Admission and Anticipated Discharge Date Admission Date: January 18, 2022 Subjective Pt was seen and examined for follow up of abdominal pain Lying in bed with no acute distress Pt said that her abdominal pain improves She is asking to be discharged because her dog is alone in the house She is very anxious about her dog and she does not have anyone to check on her dog while she is in the hospital She is having headache Denies any chest pain, palpitation, didzziness and SOB Review of Systems Review of Systems: All systems reviewed & are unremarkable except as noted in Subjective Physical Exam Physical Exam: General- No acute distress Head- atraumatic Eyes- PERRL, EOMI, ENT- oropharynx clear Neck- supple, no JVD Lungs- clear to auscultation Heart- regular rhythm; no murmur Abdomen- normal bowel sounds, +mild tender Extremities- no calf tenderness Neuro- alert, oriented x 3; PERRL, EOMI; no facial palsy; no dysarthria Skin- warm & dry Results & Data Results & [facility] ([facility]) Vital Signs (Past 12 Hours) Vital Signs Temp Pulse Pulse Resp BP Pulse Ox 01/19/22 07:58 36.3 C L 101 H 18 116/75 93 01/19/22 07:28 97 H 01/19/22 03:30 36.7 C 101 H 18 115/74 92 01/18/22 23:27 36.8 C 105 H 18 112/74 92 (1) T2DM (type 2 diabetes mellitus) Diabetes mellitus complication status: without complication Diabetes mellitus oysterman insulin use: unspecified oysterman insulin use status Qualified Code(s): E11.9 - Type 2 diabetes mellitus without complications (2) Acute pancreatitis Acute pancreatitis complication: no infection or necrosis Pancreatitis type: unspecified pancreatitis type Qualified Code(s): K85.90 - Acute pancreatitis without necrosis or infection, unspecified
--- NOTE | 2022-01-19 11:50 | Gastrointestinal Consultation ---
Date of Consultation January 19, 2022 Assessment & Plan (1) Acute pancreatitis: Pt is a 51 yo female w seen for acute pancreatitis. Hx of uncontrolled DM II, on Trulicity, tobacco abuse, dyslipidemia w TG >1000s. Also CT findings of hepatomegaly, hepatic steatosis w possible early cirrhosis. - LR IVF resuscitation @200ml/hr - CL diet - Symptomatic management with antiemetic and analgesics prn - Recommend DC Trulicity as it may contribute to pancreatitis - Consider cardiology consult to help w dyslipidemia management, possible addition of fibrates and plasmapheresis for hypertriglyceridemia - Diabetic management per PCP and hospitalist - Recommend tobacco cessation - Upon DC will schedule f/u in GI clinic for workup and management of possible early cirrhosis Supervising Physician Co-Signing Physician Notes I have personally seen and examined the patient with MARILOU Espitia. Her note reflects my exam and findings. I agree with her impression and plan. Possible drug induced pancreatitis from Trulicity. Davon Ybarra M.D. History of Present Illness Reason for Consultation: Pancreatitis Requesting Physician: Dr. Kiet Price Attending Physician: Dr. Davon Ybarra History of Present Illness Pt is a 51 yo female who presented yesterday w c/o epigastric abd pain, n/v. Denies associated fever, chills, bowel habit changes. No sick contact. On evaluation, noted to have normal LFTs but elevated Lipase of over 200s. CT abd/pelvis showed signs of acute pancreatitis w also hepatomegaly, severe hepatic steatosis, nodularity of liver concerning for early cirrhosis. Pt has hx of uncontrolled DM II (A1C >10%). She was started on Trulicity for DM management about 1 month ago. Dyslipidemia on Atorvastatin, Total cholesterol was >300s, Triglycerides >1000s. She smokes tobacco but no ETOH, illicit drugs. She reports mother w fatty liver cirrhosis. Today she feels her abd pain is improved, no fever, chills overnight ,no n/v. Wants to start diet. Allergies Allergy/AdvReac Type Severity Reaction Status Date / Time cephalexin [From Keflex] Allergy Severe Vomiting Unverified 01/18/22 12:04 Sulfa (Sulfonamide Allergy Severe Vomiting Unverified 01/18/22 12:04 Antibiotics) Home Medications Medication Instructions Recorded Confirmed Type amitriptyline 100 mg tablet 100 mg PO HS 01/18/22 01/18/22 History atorvastatin 40 mg tablet 40 mg PO DAILY 01/18/22 01/18/22 History doxepin 100 mg capsule 100 mg PO PM 01/18/22 01/18/22 History dulaglutide 1.5 mg/0.5 mL 1.5 mg SUBCUT WK 01/18/22 01/18/22 History subcutaneous pen injector (Trulicity) fremanezumab-vfrm 225 mg/1.5 mL 1 mg SUBCUT MONTHLY 01/18/22 01/18/22 History subcutaneous syringe (Ajovy Syringe) magnesium oxide 400 mg PO DAILY 01/18/22 01/18/22 History metformin 500 mg tablet,extended 500 mg PO QAM 01/18/22 01/18/22 History release 24 hr pregabalin 75 mg capsule 150 mg PO HS 01/18/22 01/18/22 History Patient History Medical History Anxiety Bipolar 1 disorder Diabetic neuropathy Fatty liver HLD (hyperlipidemia) Hx of migraines Hypothyroidism T2DM (type 2 diabetes mellitus) Tobacco abuse Surgical History History of bilateral hip arthroplasty History of reduction mammoplasty Family History Mother CAMPUZANO (nonalcoholic steatohepatitis) Father Bipolar disorder Social History Smoking Status: Current every day smoker Tobacco Type: Cigarettes packs per day: 1; Cigarettes Per Day: 1/2 ppd; Second Hand Exposure: No; Do You Dip or Chew Tobacco: No; Tobacco Cessation Education Requested by Patient: No Hx Alcohol Use: No Hx Substance Use: No Preferred Language: Khmer Communication Ability: Effective Marker Delivery Required: No Beliefs That Will Affect Care: None marital status: Single Current Living Situation: Alone Other Information That Helps Us Care for You: No Feels Safe at Home: Yes Safety Concerns: Feels Safe At This Time Assistive Devices: None Review of Systems Review of Systems: All systems reviewed & are unremarkable except as noted in HPI & below Physical Exam 2 Constitutional: WD/WN, vitals as above well groomed, cooperative and comfortable Eyes: PERRL, conjunctivae normal, anicteric sclerae ENMT: external ear and nose normal, oropharynx normal Respiratory: normal respiratory effort, lungs clear to auscultation Cardiovascular: RRR, no murmur, no edema Gastrointestinal (Abdomen): normal bowel sounds, soft, nontender, no hepatosplenomegaly Skin: no rashes, warm and dry no jaundice Psychiatric: A+Ox3, euthymic affect Lymphatic: no lymphedema Results & Data ([facility]) Vital Signs (Past 12 Hours) Vital Signs Temp Pulse Pulse Resp BP Pulse Ox 01/19/22 07:58 36.3 C L 101 H 18 116/75 93 01/19/22 07:28 97 H 01/19/22 03:30 36.7 C 101 H 18 115/74 92 (1) Acute pancreatitis Acute pancreatitis complication: no infection or necrosis Pancreatitis type: unspecified pancreatitis type Qualified Code(s): K85.90 - Acute pancreatitis without necrosis or infection, unspecified
[2022-01-19] MEDS: oxyCODONE HCL IR 5 MG TAB (IMMEDIATE RELEASE) PO PRN (13:06)
[2022-01-19] MEDS: DOXEPIN HCL 50 MG CAPSULE PO SCH (21:34)
[2022-01-19] MEDS: AMITRIPTYLINE HCL 100 MG TAB PO SCH (21:34)
[2022-01-19] MEDS: IPRATROPIUM BROMIDE NASAL SPRAY 0.06% 15ML NAE SCH (21:35)
[2022-01-19] MEDS: ENOXAPARIN INJ 40 MG/0.4 ML SYR SQ SCH (21:36)
[2022-01-19] MEDS: PREGABALIN 150 MG CAP PO SCH (21:51)
[2022-01-20] MEDS: D5NSS + 20MEQ KCL 20 MEQ/1,000 ML BAG IV SCH ×2 (02:37→06:19)
[2022-01-20 04:41] LABS: HBSAG NON-REACTIVE (NON-REACTIVE); Hepatitis A Antibody IgM NON-REACTIVE (NON-REACTIVE); Hepatitis B Core Antibody IgM NON-REACTIVE (NON-REACTIVE)
[2022-01-20] MEDS: ACETAMINOPHEN 325 MG TAB PO PRN (05:10)
[2022-01-20 07:03] LABS: BUN Creatinine Ratio 10.5 (10-20); Calcium 7.9 mg/dl (8.5-10.1); Creatinine Clr Calc Pharmacy 123.4 ml/min; Est GFR (African American) 122.7 ml/min; Est GFR (Non-African American) 105.8 ml/min; Potassium 3.9 mmol/L (3.5-5.1)
[2022-01-20] MEDS ORDERED: LACTATED RINGER'S 1,000 ML IV SCH (08:30)
[2022-01-20] MEDS ORDERED: INSULIN GLARGINE SOLOSTAR 100 UNITS/ML 3 ML PEN SC ONE ×2 (08:30→08:45)
[2022-01-20] MEDS: IPRATROPIUM BROMIDE NASAL SPRAY 0.06% 15ML NAE SCH (08:37)
[2022-01-20] MEDS: MAGNESIUM OXIDE 400 MG TAB PO SCH (08:37)
[2022-01-20] MEDS: INSULIN ASPART PER UNIT SC SCH (08:38)
[2022-01-20] MEDS ORDERED: RIZATRIPTAN BENZOATE 10 MG TAB PO ONE (08:44)
[2022-01-20] MEDS: oxyCODONE HCL IR 5 MG TAB (IMMEDIATE RELEASE) PO PRN (08:47)
[2022-01-20] MEDS ORDERED: FENOFIBRATE NANOCRYSTALLIZED 145 MG TABLET PO SCH (09:00)
--- NOTE | 2022-01-20 09:07 | Pharmacy Report ---
Pharmacy Glycemic Short Note 2 - Date of Service January 20, 2022 - Glycemic Short BSG Results (Last 24 hours): 01/19/22 01/19/22 01/19/22 10:34 12:02 13:02 Glucose POC Glucose 180 H 252 H 250 H 01/19/22 01/19/22 01/19/22 14:06 15:02 16:15 Glucose POC Glucose 220 H 172 H 110 H 01/19/22 01/19/22 01/19/22 17:05 18:02 19:57 Glucose POC Glucose 128 H 247 H 206 H 01/19/22 01/19/22 01/19/22 21:43 22:08 22:18 Glucose POC Glucose 118 H 118 H 111 H 01/19/22 01/19/22 01/20/22 22:44 23:51 00:59 Glucose POC Glucose 126 H 224 H 215 H 01/20/22 01/20/22 01/20/22 02:24 03:28 04:09 Glucose POC Glucose 187 H 143 H 107 H 01/20/22 01/20/22 01/20/22 05:07 05:43 06:13 Glucose 107 H POC Glucose 104 H 104 H 01/20/22 01/20/22 07:11 08:26 Glucose POC Glucose 119 H 237 H OUTPATIENT ANTIDIABETIC REGIMEN: * Trulicity, metformin ASSESSMENT: 01/20 * Patient on insulin drip all of yesterday for hypertriglyceridemia induced pancreatitis, continued on drip at 0.1 units/hr. Dextrose fluids adjusted to help control blood sugars and to prevent hypoglycemia * Triglycerides now trending downward this AM ~700s. Provider okay to transition off insulin drip. Fluids adjusted this morning to LR * Hard to determine insulin needs with insulin drip yesterday, as dextrose fluids running at very high rate * Plan to utilize stress of 2/3 dosing for Lantus for this AM. Will trial Lantus 30 units x 1 now to overlap with insulin drip for a couple hours * RN stating patient wanting to leave this morning, will monitor closely and try to d/c insulin drip as soon as possible 01/19 * 51 year old admitted with uncontrolled diabetes, bipolar, tobacco abuse presenting to ER with abdominal pain. Per notes, last A1c 10.5 11/2021. Only on trulicity and metformin at home. * TG this AM came back elevated, concerns for hypertriglyceridemia induced pancreatitis. Plan to start insulin drip at set rate of 0.1 units/kg/hr and dextrose fluids. Provider aware fluids may need to be adjusted/titrated based upon BSG values. He will monitor * Patient did receive about ~30 units of insulin yesterday, of which 15 units were basal insulin * Will hold further basal insulin at this time, will utilize novolog with insulin drip just for carb coverage if needed PLAN FOR INPATIENT GLYCEMIC CONTROL: * Hold outpatient oral diabetes medications * Insulin drip - plan to d/c drip today * Basal insulin * Lantus - 30 units x 1 (overlap with insulin drip) * Bolus insulin * NovoLog carb coverage only with insulin drip - set carb ratio of 7 DISCHARGE PLAN: * Patient met with DM educator and reports being on insulin several years ago but discontinued d/t improved blood sugars/A1c. Recently on a couple courses of prednisone outpatient, which could be contributing to higher A1c. * Per notes, Trulicity started in October. Trulicity may be associated with adverse reactions such as pancreatitis, therefore would recommend stopping Trulicity and to consider other antidiabetic agents. * DM educator reports patient agreeable to start checking blood sugars post discharge and also agreeable to at least once daily basal insulin. Agreeable also to [facility]TM clinic referral.
--- NOTE | 2022-01-20 09:18 | Gastroenterology Progress Note ---
Date of Service January 20, 2022 Assessment & Plan (1) Acute pancreatitis: Plan: Pt is a 51 yo female w seen for acute pancreatitis. Hx of uncontrolled DM II, on Trulicity, tobacco abuse, dyslipidemia w TG >1000s. Also CT findings of hepatomegaly, hepatic steatosis w possible early cirrhosis. Tolerating CL diet w/o increased abd pain, n/v. - Decrease LR IVF rate to 125ml/hr; may DC if she is having good fluids intake PO - Low fat, diabetic diet - Symptomatic management with antiemetic and analgesics prn - Recommend DC Trulicity as it may contribute to pancreatitis - Consider cardiology consult to help w dyslipidemia management, possible addition of fibrates and plasmapheresis for hypertriglyceridemia - Diabetic management per PCP and hospitalist - Recommend tobacco cessation - Upon DC will schedule f/u in GI clinic for workup and management of possible early cirrhosis ; and discuss EUS w liver bx eval - Recall GI prn Admission and Anticipated Discharge Date Admission Date: January 20, 2022 Subjective Pt reports abd pain is improved, tolerating CL diet. No n/v. Is having migraine HAs. Review of Systems Review of Systems: All systems reviewed & are unremarkable except as noted in HPI & below Physical Exam Constitutional: WD/WN, vitals as above well groomed, cooperative and comfortable Eyes: PERRL, conjunctivae normal, anicteric sclerae ENMT: external ear and nose normal, oropharynx normal Respiratory: normal respiratory effort, lungs clear to auscultation Cardiovascular: RRR, no murmur, no edema Gastrointestinal (Abdomen): normal bowel sounds, soft, nontender, no hepatosplenomegaly Skin: no rashes, warm and dry no jaundice Psychiatric: A+Ox3, euthymic affect Lymphatic: no lymphedema Results & Data ([facility]) Vital Signs (Past 12 Hours) Vital Signs Temp Pulse Pulse Resp BP Pulse Ox 01/20/22 07:11 36.6 C 95 H 20 115/72 95 01/20/22 03:48 106 H 01/20/22 03:40 36.5 C 105 H 20 141/90 H 95 01/19/22 22:21 36.8 C 105 H 18 137/84 95 (1) Acute pancreatitis Acute pancreatitis complication: no infection or necrosis Pancreatitis type: unspecified pancreatitis type Qualified Code(s): K85.90 - Acute pancreatitis without necrosis or infection, unspecified
[2022-01-20] MEDS: MoRPHine SULFATE 4 MG/ML 1 ML CARP\\VIAL IV PRN (11:00)
[2022-01-20 11:24] VITALS: BP 167/83; PULSE 105; TEMP 97.7; O2SAT 94
[2022-01-20] MEDS ORDERED: INSULIN ASPART PER UNIT SC SCH (11:30)
--- NOTE | 2022-01-20 12:32 | Discharge Summary ---
Date of Service January 20, 2022 Admission HPI Per Admitting Provider This is a 51-year-old female who has significant past medical history of uncontrolled T2DM, diabetic autonomic neuropathy, HLD, hypothyroidism, bipolar disorder type I, anxiety, tobacco abuse who presents to ED secondary to abdominal pain x1 day. She states she was in her normal state of health yesterday. She woke up this morning with excruciating epigastric pain that was nonradiating. Pain is currently rated as a 10 out of 10. Nothing has improved pain. Movement and touching abdomen makes pain worse. She has never experienced this before. She denies any alcohol use. She is a daily tobacco user at half a pack to a pack a day. She denies any illicit drug use or significant NSAID use. She does take occasional Excedrin secondary to history of migraines. Her last migraine was this morning. She denies taking her medications this morning. She admits to recently starting Lyrica ~ 1 week ago. She denies any recent fever, chills, sweats, lightheadedness, dizziness, syncope, chest pain, shortness of breath, cough, URI symptoms, dysuria, increased urgency or frequency with urination, melena or hematochezia. She further denies any hematemesis or hemoptysis. She does complain of nausea and vomiting. She describes the vomiting as bilious-like material. Overall has had poor appetite today and only drank 1 sparkling grape juice. Her appetite was normal yesterday. Denies recent surgery. In ED patient remained hemodynamically stable although significantly hypertensive. Her lab work was consistent with elevated lipase at 211, AST 70, ALT 69, alk phos 175, glucose 500, corrected sodium of 134. She received 1 L of IV fluid, IV Zofran and oral lorazepam prior to my evaluation. Her epic chart was reviewed and no prior cardiac testing was able to be found. Her most recent A1c was 10.5 on 11/16/2021. Admission Exam Per Admitting Provider Constitutional: WD/WN, F, anxious, flight of ideas and very tangential in con versation, vitals as above, NAD, sitting up in bed, pleasant, conversing easily Head: Normocephalic, Atraumatic Eyes: PERRL, conjunctivae normal, anicteric sclerae ENMT: external ear and nose normal, oropharynx normal Neck: trachea midline, no thyromegaly normal visual inspection Respiratory: normal respiratory effort, lungs clear to auscultation, no wheeze, rales, rhonchi. Normal insp/exp effort, no accessory muscle use Cardiovascular: RRR, no murmur, no edema Vessels: no JVD or carotid bruit Chest: normal inspection of chest Abdomen: normal bowel sounds, soft, +pain to palpation in epigastrum Musculoskeletal: no cyanosis or clubbing, extremities motor strength 5/5 Skin: no rashes, warm and dry normal turgor Neurologic: PERRL, EOMI, accommodation nl, no face palsy, no dysarthria CN's II-XI intact bilaterally and moves all extremities Psychiatric: A+Ox3, euthymic affect Lymphatic: no cervical or axillary lymphadenopathy : deferred Principal Diagnosis (1) Acute pancreatitis: (2) Elevated LFTs: (3) T2DM (type 2 diabetes mellitus): (4) Bipolar 1 disorder: (5) Tobacco abuse Discharge Exam General- No acute distress Head- atraumatic Eyes- PERRL, EOMI, ENT- oropharynx clear Neck- supple, no JVD Lungs- clear to auscultation Heart- regular rhythm; no murmur Abdomen- normal bowel sounds, +mild tender Extremities- no calf tenderness Neuro- alert, oriented x 3; PERRL, EOMI; no facial palsy; no dysarthria Skin- warm & dry Discharge Data Allergies Allergy/AdvReac Type Severity Reaction Status Date / Time cephalexin [From Keflex] Allergy Severe Vomiting Unverified 01/18/22 12:04 Sulfa (Sulfonamide Allergy Severe Vomiting Unverified 01/18/22 12:04 Antibiotics) Consultations 01/18/22 14:42 ED Decision to Admit Stat 01/18/22 14:49 Consult Gastroenterology Routine Ordered Studies 01/18/22 12:01 CT abd pelvis IV con only Stat XR chest 1V portable HISTORY: Atypical chest pain COMPARISON: None. FINDINGS: The lungs are clear. Cardiac silhouette is normal in size. No pleural effusions. No pneumothorax. IMPRESSION: No acute process. ACT 112: Negative or not required by law. Electronically signed by: Yash Biggs M.D. 01/18/2022 2:18 PM Dictated:01/18/22 1411 Transcribed: 01/18/[address] SCAN OF THE ABDOMEN AND PELVIS WITH IV CONTRAST CLINICAL HISTORY: Generalized abdominal pain. Nausea and vomiting. Elevated lipase and hepatic transaminases. COMPARISON STUDY: Lumbar spine radiographs dated 03/16/2021. TECHNIQUE: Following the IV administration of 24 cc of Optiray 320, CT scan of the abdomen and pelvis is performed from the lung bases to the proximal femora. Images are reviewed in the axial, sagittal, and coronal planes. IV contrast was administered without complication. A dose lowering technique was utilized adhering to the principles of ALARA. CT DOSE: 562.03 mGy.cm FINDINGS: Lung bases: The heart is normal in size and without pericardial effusion. The lung bases are clear. There is a small hiatal hernia. Liver: The contrast-enhanced liver is enlarged, measuring 22.9 cm in length. The liver demonstrates diffusely diminished attenuation consistent with severe hepatic steatosis. Fatty sparing is noted adjacent to gallbladder fossa. Nodularity of the surface contour suggests early change of cirrhosis. There is no intrahepatic biliary ductal dilatation. The hepatic veins and portal veins are patent. Gallbladder: Unremarkable. Spleen: Normal in size and attenuation. Pancreas: The pancreatic head and neck appear enlarged and edematous with surrounding inflammation and fluid. The appearance is typical for acute pancreatitis. The pancreatic duct is normal in caliber. The gland enhances throughout. No organized peripancreatic fluid collection is identified. The splenic vein is patent. Adrenal glands: Unremarkable. Kidneys: The contrast enhanced kidneys are normal in size and without hydronephrosis. The kidneys enhance symmetrically. Abdominal vasculature: The abdominal aorta is normal in course and caliber. Bowel: Moderate fecal retention is seen throughout the colon. No bowel obstruction is identified. Wall thickening of the duodenum is likely related to adjacent pancreatitis. The appendix is well-visualized and normal. Peritoneum: There is no intraperitoneal free air or abdominal ascites. Lymphadenopathy: None. Pelvic viscera: Evaluation of the pelvis is severely degraded by streak artifact from bilateral hip arthroplasties. The bladder, uterus, and adnexa are normal as imaged. Skeletal structures: No lytic or blastic lesions are seen. Bilateral hip arthroplasties are in place. IMPRESSION: 1. Findings are consistent with acute pancreatitis. 2. The gland enhances throughout and no organized peripancreatic fluid collection is identified. 3. Hepatomegaly and severe hepatic steatosis. 4. Nodularity of the hepatic surface contour suggests early morphologic change of cirrhosis. 5. Additional findings as above. ACT 112: Negative or not required by law. Electronically signed by: Ranjit Colindres M.D. 01/18/2022 2:15 PM Dictated:01/18/22 1408 Transcribed: 01/18/22 1408 Diabetes Follow up Diabetes Follow-up Needed for HgbA1c >9% Hospital Course (1) Acute pancreatitis: (2) Elevated LFTs: (3) T2DM (type 2 diabetes mellitus): (4) Bipolar 1 disorder: (5) Tobacco abuse: This is a 51-year-old female who has significant past medical history of uncontrolled T2DM, diabetic autonomic neuropathy, HLD, hypothyroidism, bipolar disorder type I, anxiety, tobacco abuse who presents to ED secondary to abdominal pain x1 day. Acute pancreatitis Elevated LFTs Possible related to Hypertriglyceridemia or Trulicity Lipid panel with Triglycerides 1474 nd cholesterol 343 Lipase on admision 211, slightly decreased to 203 AST and ALT normalized CT abdomen pelvis revealed findings consistent with acute pancreatitis, hepatomegaly and severe hepatic steatosis were also noted along with early morphologic changes of cirrhosis Currently on IV fluids with D5NS at 200 cc/ml On IV insulin drip to help lower the triglycerides level Repeat Triglycerides 753 Will discontinue the IV insulin drip Gastro on board Case discussed with GI plan to arrange for outpatient workup and management of possible early cirrhosis ; and discuss EUS w liver bx eval Tolerated low fat diet clinically improved T2DM, uncontrolled Most recent Hba1c 16.1 On Metformin and Trulicity as outpatient, continue to hold Currently on IV insulin drip due to Hypertriglyceridemia pharmacy on board for glycemic management Pt agreed to start on Subq insulin Will discharge on basaglar 22 units daily Will need to follow up with [facility]TM clinic to manage her insulin clinical systems educator on board Continue monitor BS Pseudohyponatremia in setting of hyperglycemia Corrected sodium 134 monitor with hydration Tobacco abuse Counseling on Smoking cessation, patient declines nicotine patch Bipolar disorder Anxiety Continue amitriptyline and doxepin DVT prophylaxis: Lovenox PCP: [facility] Full code Disposition discharge home today ( pt cannot stay any longer due to her dog, if she does not discharge, she plans to sign AMA) Total Time Total Time Spent Total Time Spent (In Minutes): 35 minutes Discharge Plan Discharge Items Patient Disposition: Home - Self-Care Reason For Visit: PANCREATITIS, HYPERGLYCEMIA Discharge Diagnosis: (1) Acute pancreatitis: (2) Elevated LFTs: (3) T2DM (type 2 diabetes mellitus): (4) Bipolar 1 disorder: (5) Tobacco abuse Activity: Resume your previous activity Non-emergency contact: Primary Care Provider Call non-emergency contact if: you have any medication questions Follow-up/Referrals: Asher Hurtado MD [Primary Care Provider] - (Date & Time 01/25/2022 11:00 AM Provider Asher Hurtado III, MD Department [facility] ) Diet: Carb Consistent or DM2 Addtl Attending Provider Instructions: Follow up with your primary care provider Dr. Hurtado on 01/25/2022 @ 11:00 AM at [facility] Follow up with the [facility]TM clinic to help manage your insulin Follow up with gastroenterology to arrange for workup and management of possible early cirrhosis and discuss about endoscopy ultrasound with liver biopsy Continue monitor your blood sugar and bring your blood sugar log at your next appointment with your provider Continue follow a healthy diabetic diet and limited concentrated sweet intake Counseling on tobacco cessation Your provider will continue monitor your lipid due to the elevate cholesterol and triglycerides Check liver enzymes in 1 -2 weeks since you are starting on a new cholesterol medications Pending Studies at Discharge: No Stand-Alone Forms: My [facility] [place], Smoking Cessation Medications and DC Order Prescriptions: New simvastatin 40 mg Tablet 40 mg PO PM 30 Days Qty: 30 RF: 0 fenofibrate nanocrystallized 145 mg Tablet 145 mg PO QAM 30 Days Qty: 30 RF: 0 Basaglar KwikPen U-100 Insulin 100 unit/mL (3 mL) insulin pen 22 unit subcut QAM Qty: 15 RF: 0 (DME) pen needle,diabetic, disp unit 32 gauge x 5/32" needle See Rx Instructions .Route Qty: 100 RF: 0 (DME) OneTouch Verio test strips Strip See Rx Instructions .Route Qty: 100 RF: 0 (DME) lancets [OneTouch Delica Lancets] 30 gauge misc See Rx Instructions .Route Qty: 100 RF: 0 Continued doxepin 100 mg capsule 100 mg PO PM RF: 0 metformin 500 mg tablet extended release 24 hr 500 mg PO QAM RF: 0 amitriptyline 100 mg tablet 100 mg PO HS RF: 0 pregabalin 75 mg capsule 150 mg PO HS RF: 0 Ajovy Syringe 225 mg/1.5 mL syringe 1 mg SUBCUT MONTHLY RF: 0 magnesium oxide 400 mg magnesium Capsule 400 mg PO DAILY RF: 0 Discontinued atorvastatin 40 mg tablet 40 mg PO DAILY RF: 0 Trulicity 1.5 mg/0.5 mL pen injector 1.5 mg SUBCUT WK RF: 0 Discharge Orders: Discharge Order (Routine); Ordered 01/20/22 Ordered By: Kiet Price Admission Data Admit Date/Time: 01/20/22 03:43 Attending Provider: Kiet Price Admit Provider: Kiet Price Primary Care Provider: Asher Hurtado Other Providers: Kiet Price ; Davon Ybarra Other Interventions: Discharge Summary Assessment (RN) Last Done: 01/20/22 12:31
[2022-01-20] MEDS ORDERED: SIMVASTATIN 40 MG TAB PO SCH (21:00)
== END 2022-01-20 12:49 | disposition home or self-care (01) ==
LOC: 2W 11:38 → ED 11:38 → 2W 16:30

== ENCOUNTER 2022-03-17 23:59 | Observation (INO) ==
[2022-03-18] MEDS ORDERED: ONDANSETRON INJ 2 MG/ML 2 ML VIAL IV STA (00:12)
[2022-03-18] MEDS ORDERED: SODIUM CHLORIDE 0.9% 1000ML 1,000 ML IV ONE ×2 (00:12→01:41)
[2022-03-18] MEDS ORDERED: MoRPHine SULFATE 10 MG/ML CARP/VIAL IV STA ×2 (00:12→01:07)
--- NOTE | 2022-03-18 00:16 | Emergency Department Note ---
Impression & Plan Acute hyperglycemia, Acute pancreatitis ED Provider Note Name: TAMMY CARTER Age: 51 Sex: F Arrives Via: Ambulance Informant: Patient, EMS ED Provider: Cahd Small MD Chief Complaint: epigastric pain Impression: As per impressions above Medical Decision Makin-year-old female with a history of diabetes, anxiety/depression, triglyceridemia arrives for evaluation of acute epigastric pain. Symptoms are similar to her previous pancreatitis complicated this time by the fact that she has an elevated blood sugar reading of high by EMS. Patient admits she does not check her blood sugars regularly at home. She also admits she was drinking hard cider earlier in the day. Review of chart she did have a CT a month and a half ago which revealed the acute pancreatitis the lipase at that time was normal. Patient was given pain medications and fluids as she does appear dry. Her labs returned a mildly elevated lactic acidosis but more concerning was the blood sugar of 750. She is not severely acidotic though as her VBG is normal and her bicarb is unremarkable. An insulin drip was started due to the severe elevation of her blood sugar. She was receiving several doses of pain medications due to the epigastric pain. That said she has not hypotensive nor does she have peritonitis on exam so we will hold off on CT at this time given known previous cause. Hospitalist was consulted for further management. Prior Medical Record and Triage/Nursing Notes reviewed by Me Additional history obtained from chart Differentials:Pancreatitis, gastritis, aortic pathology, ACS, liver pathology, pancreatitis, acidosis, electrolyte abnormality, multiple other pathologies considered. Vital Signs: reviewed and remarkable for hypertension mild tachycardia Interventions: Normal saline bolus 2 L IV, insulin drip, morphine 6 mg IV x2, Dilaudid 1 mg IV Labs:Reviewed and remarkable for blood sugar severely elevated Imagin view chest x-ray no acute findings EKG:Per My Interpretation: Indication epigastric pain: Sinus Tach 103 bpm, qtc 466. No Ectopy. No Ischemia. Compared to EKG 01/18/22, no significant changes. Cardiac/Tele Monitoring: Cardiac Monitoring: An Order was placed for continuous cardiac monitoring. The monitor shows a rate of 103 with a sinus tach rhythm. Consults:Dr Miller Plan: Disposition:Hospitalization. Condition: Good History of Present Illness:51-year-old female arrives for evaluation of abdominal pain. Patient notes rapid onset of abdominal pain around 7pm. Associated with nausea and is located in epigastrium. Similar to recent episode of pancreatitis. Notes she was drinking hard cider prior to this occurring. Associated with elevated blood sugar as well. She states she has been taking her medications as prescribed. Patient denies she is also having significant mount of reflux. She denies any syncope, fevers, chills, shortness of breath, chest pain, flank pain symptoms, leg swelling, rashes, bleeding/bruising or other signs or symptoms. She notes she is chronically constipated but also has diarrhea and even seen GI about this. She denies any recent falls, trauma, injuries. Patient took no new medications this evening or anything for the pain. Nothing makes it better or worse. ROS: See above HPI for pertinent positives & negatives. A total of 10 systems reviewed and were otherwise negative. Past Medical History:See Below Past Surgical History:See Below Family History:See Below Social History:See Below Home Medications:See Below Allergies:keflex, sulfa Vitals:Blood Pressure: 169/86, Pulse 103, RR 18, T 36.8C, O2 96% on RA Physical Exam: GENERAL: Patient is uncomfortable appearing and in moderate distress. EYES: No scleral icterus, unremarkable pupils. ENT: Mucous membranes moist, no nasal congestion. NECK: No masses appreciated, nomeningismus, trachea is midline. RESPIRATORY: No dyspnea. Clear to auscultation and equal bilaterally. No wheeze, no rhonchi. CARDIOVASCULAR: tachy.No murmurs, rubs, gallops appreciated. GASTROINTESTINAL: Epigastric TTP, otherwise abdomen soft, non-tender, no peritonitis.Bowel sounds positive.No masses appreciated. BACK: No midline tenderness, no CVA tenderness EXTREMITIES: Normal motion all extremities, no cyanosis, no edema. NEUROLOGIC: Alert and oriented, no acute motor or sensory deficits, no focal weakness, cranial nerves grossly intact. SKIN: No rash, no jaundice, no diaphoresis. PSYCH: Appropriate GCS: 15 ED Course: Times/Reassessments: Improving pain. Patient agreeable to hospitalization and hospitalist consulted Chad Small MD Past Med/Surg History Medical History Anxiety Bipolar 1 disorder Diabetic neuropathy Fatty liver HLD (hyperlipidemia) Hx of migraines Hypothyroidism T2DM (type 2 diabetes mellitus) Tobacco abuse Surgical History History of bilateral hip arthroplasty History of reduction mammoplasty Family History Mother CAMPUZANO (nonalcoholic steatohepatitis) Father Bipolar disorder Social History Smoking Status: Unknown if ever smoked Tobacco Type: Cigarettes packs per day: 1; Cigarettes Per Day: 1/2 ppd; Second Hand Exposure: No; Hx Alcohol Use: Yes Preferred Language: American Communication Ability: Effective Dental Practitioner Required: No Beliefs That Will Affect Care: None marital status: Single Current Living Situation: Alone Feels Safe at Home: Yes Safety Concerns: Feels Safe At This Time Assistive Devices: None Allergies Allergies Allergy/AdvReac Type Severity Reaction Status Date / Time cephalexin [From Keflex] Allergy Severe Vomiting Unverified 01/18/22 12:04 Sulfa (Sulfonamide Allergy Severe Vomiting Unverified 01/18/22 12:04 Antibiotics) Home Meds Home Medications Medication Instructions Recorded Confirmed amitriptyline 100 mg tablet 100 mg PO HS 01/18/22 01/18/22 fremanezumab-vfrm 225 mg/1.5 mL 1 mg SUBCUT MONTHLY 01/18/22 01/18/22 subcutaneous syringe (Ajovy Syringe) magnesium oxide 400 mg PO DAILY 01/18/22 01/18/22 metformin 500 mg tablet,extended 500 mg PO BID 01/18/22 01/18/22 release 24 hr pregabalin 75 mg capsule 150 mg PO BID 01/18/22 01/18/22 fluticasone 500 mcg-salmeterol 50 INHALATION 03/18/22 mcg/dose blistr powdr for inhalation (Advair Diskus) Previous Rx's Medication Instructions Recorded blood sugar diagnostic (OneTouch #100 ea 01/20/22 Verio test strips) insulin glargine 100 unit/mL (3 22 unit SUBCUT QAM #15 ml 01/20/22 mL) subcutaneous pen (Basaglar KwikPen U-100 Insulin) lancets 30 gauge (OneTouch Delica #100 ea 01/20/22 Lancets) pen needle,diabetic, disp unit 32 #100 ea 01/20/22 gauge x ", remover and disposal unit Results & Data (ED) Vital Signs Vital Signs - 24 hr 03/18/22 02:00 03/18/22 04:00 Pulse Rate [Apical] 95 H 97 H Pulse Rhythm [Apical] Regular Regular Pulse Strength [Apical] Normal Normal Respiratory Rate 18 18 Respiratory Effort / Characteristics Non-Labored Spontaneous Non-Labored Spontaneous Respiratory Depth Normal Normal Respiratory Pattern Regular Blood Pressure [Left Arm] 117/81 165/86 H Blood Pressure Mean [Left Arm] 93 112 Blood Pressure Position [Left Arm] Lying Lying Pulse Oximetry 95 98 Oxygen Delivery Method Room Air Room Air Laboratory Data Result diagrams: 03/18/22 00:25 03/18/22 00:25 Lab Results 03/18/22 03/18/22 03/18/22 Range/Units 00:25 00:25 00:25 WBC 8.88 (4.8-10.8) K/uL RBC 4.42 (4.2-5.4) M/uL Hgb 13.4 (12.0-16.0) g/dL Hct 41.5 (37-47) % MCV 93.9 (80-100) fL MCH 30.3 (25-34) pg MCHC 32.3 (32-36) g/dL RDW Std Deviation 49.1 H (36.4-46.3) fL RDW Coeff of Javier 14.4 (11.5-14.5) % Plt Count 248 (130-400) K/uL MPV 11.2 H (7.4-10.4) fL Immature Gran % (Auto) 0.5 % Neut % (Auto) 66.3 % Lymph % (Auto) 24.0 % [place] % (Auto) 5.2 % Eos % (Auto) 3.3 % Baso % (Auto) 0.7 % Neut # (Auto) 5.90 (1.4-6.5) K/uL Lymph # (Auto) 2.13 (1.2-3.4) K/uL [place] # (Auto) 0.46 (0.11-0.59) K/uL Eos # (Auto) 0.29 (0-0.5) K/uL Baso # (Auto) 0.06 (0-0.2) K/uL Immature Gran # (Auto) 0.04 H (0.00-0.02) K/uL VBG pH (7.36-7.41) VBG pCO2 (38-50) mmHg VBG pO2 mmHg VBG HCO3 mmol/L VBG O2 Saturation % VBG Base Excess mEq/L Barometric Pressure mm/Hg Sodium 128 L (136-145) mmol/L Potassium 4.1 (3.5-5.1) mmol/L Chloride 93 L (98-107) mmol/L Carbon Dioxide 24 (21-32) mmol/L Anion Gap 11 (3-11) BUN 18 (6-23) mg/dl Creatinine 1.19 (0.6-1.2) mg/dl Est Cr Clr Drug Dosing 59.7 ml/min Est GFR ( Amer) 60.4 ml/min Est GFR (Non-Af Amer) 52.1 ml/min BUN/Creatinine Ratio 15.1 (10-20) Glucose 747 H* (70-99(Fasting)) mg/dl POC Glucose (70-99) mg/dl Lactate 2.7 H* (0.4-2.0) mmol/L Calcium 9.0 (8.5-10.1) mg/dl Magnesium 1.8 (1.7-2.4) mg/dl Total Bilirubin 0.4 (0.2-1.0) mg/dl Direct Bilirubin 0.0 (0-0.2) mg/dl AST 42 H (13-39) U/L ALT 64 H (7-52) U/L Alkaline Phosphatase 155 H (34-104) U/L Troponin I High Sens 8.2 (0-14) pg/ml Total Protein 7.2 (6.0-8.3) gm/dl Albumin 4.3 (3.4-5.0) gm/dl Triglycerides (0-150) mg/dl Lipase 66 (11-82) U/L Urine Color Urine Appearance (Clear) Urine pH (4.5-7.5) Ur Specific [place] (1.000-1.030) Urine Protein (Negative) Urine Glucose (UA) (Negative) Urine Ketones (Negative) Urine Blood (Negative) Urine Nitrite (Negative) Urine Bilirubin (Negative) Urine Urobilinogen (Negative) Ur Leukocyte Esterase (Negative) Ethyl Alcohol mg/dL (<10.0) mg/dl SARS-CoV-2, RNA, NAAT (NEGATIVE) 03/18/22 03/18/22 03/18/22 Range/Units 00:25 00:25 00:54 WBC (4.8-10.8) K/uL RBC (4.2-5.4) M/uL Hgb (12.0-16.0) g/dL Hct (37-47) % MCV (80-100) fL MCH (25-34) pg MCHC (32-36) g/dL RDW Std Deviation (36.4-46.3) fL RDW Coeff of Javier (11.5-14.5) % Plt Count (130-400) K/uL MPV (7.4-10.4) fL Immature Gran % (Auto) % Neut % (Auto) % Lymph % (Auto) % [place] % (Auto) % Eos % (Auto) % Baso % (Auto) % Neut # (Auto) (1.4-6.5) K/uL Lymph # (Auto) (1.2-3.4) K/uL [place] # (Auto) (0.11-0.59) K/uL Eos # (Auto) (0-0.5) K/uL Baso # (Auto) (0-0.2) K/uL Immature Gran # (Auto) (0.00-0.02) K/uL VBG pH 7.37 (7.36-7.41) VBG pCO2 44 (38-50) mmHg VBG pO2 38 mmHg VBG HCO3 25 mmol/L VBG O2 Saturation 71.8 % VBG Base Excess -0.5 mEq/L Barometric Pressure 729.6 mm/Hg Sodium (136-145) mmol/L Potassium (3.5-5.1) mmol/L Chloride (98-107) mmol/L Carbon Dioxide (21-32) mmol/L Anion Gap (3-11) BUN (6-23) mg/dl Creatinine (0.6-1.2) mg/dl Est Cr Clr Drug Dosing ml/min Est GFR ( Amer) ml/min Est GFR (Non-Af Amer) ml/min BUN/Creatinine Ratio (10-20) Glucose (70-99(Fasting)) mg/dl POC Glucose (70-99) mg/dl Lactate (0.4-2.0) mmol/L Calcium (8.5-10.1) mg/dl Magnesium (1.7-2.4) mg/dl Total Bilirubin (0.2-1.0) mg/dl Direct Bilirubin (0-0.2) mg/dl AST (13-39) U/L ALT (7-52) U/L Alkaline Phosphatase (34-104) U/L Troponin I High Sens (0-14) pg/ml Total Protein (6.0-8.3) gm/dl Albumin (3.4-5.0) gm/dl Triglycerides 604 H (0-150) mg/dl Lipase (11-82) U/L Urine Color Urine Appearance (Clear) Urine pH (4.5-7.5) Ur Specific [place] (1.000-1.030) Urine Protein (Negative) Urine Glucose (UA) (Negative) Urine Ketones (Negative) Urine Blood (Negative) Urine Nitrite (Negative) Urine Bilirubin (Negative) Urine Urobilinogen (Negative) Ur Leukocyte Esterase (Negative) Ethyl Alcohol mg/dL < 10.0 (<10.0) mg/dl SARS-CoV-2, RNA, NAAT (NEGATIVE) 03/18/22 03/18/22 03/18/22 Range/Units 01:05 02:05 02:14 WBC (4.8-10.8) K/uL RBC (4.2-5.4) M/uL Hgb (12.0-16.0) g/dL Hct (37-47) % MCV (80-100) fL MCH (25-34) pg MCHC (32-36) g/dL RDW Std Deviation (36.4-46.3) fL RDW Coeff of Javier (11.5-14.5) % Plt Count (130-400) K/uL MPV (7.4-10.4) fL Immature Gran % (Auto) % Neut % (Auto) % Lymph % (Auto) % [place] % (Auto) % Eos % (Auto) % Baso % (Auto) % Neut # (Auto) (1.4-6.5) K/uL Lymph # (Auto) (1.2-3.4) K/uL [place] # (Auto) (0.11-0.59) K/uL Eos # (Auto) (0-0.5) K/uL Baso # (Auto) (0-0.2) K/uL Immature Gran # (Auto) (0.00-0.02) K/uL VBG pH (7.36-7.41) VBG pCO2 (38-50) mmHg VBG pO2 mmHg VBG HCO3 mmol/L VBG O2 Saturation % VBG Base Excess mEq/L Barometric Pressure mm/Hg Sodium (136-145) mmol/L Potassium (3.5-5.1) mmol/L Chloride (98-107) mmol/L Carbon Dioxide (21-32) mmol/L Anion Gap (3-11) BUN (6-23) mg/dl Creatinine (0.6-1.2) mg/dl Est Cr Clr Drug Dosing ml/min Est GFR ( Amer) ml/min Est GFR (Non-Af Amer) ml/min BUN/Creatinine Ratio (10-20) Glucose (70-99(Fasting)) mg/dl POC Glucose (70-99) mg/dl Lactate 1.3 (0.4-2.0) mmol/L Calcium (8.5-10.1) mg/dl Magnesium (1.7-2.4) mg/dl Total Bilirubin (0.2-1.0) mg/dl Direct Bilirubin (0-0.2) mg/dl AST (13-39) U/L ALT (7-52) U/L Alkaline Phosphatase (34-104) U/L Troponin I High Sens (0-14) pg/ml Total Protein (6.0-8.3) gm/dl Albumin (3.4-5.0) gm/dl Triglycerides (0-150) mg/dl Lipase (11-82) U/L Urine Color Yellow Urine Appearance Clear (Clear) Urine pH 7.0 (4.5-7.5) Ur Specific [place] 1.026 (1.000-1.030) Urine Protein Negative (Negative) Urine Glucose (UA) 3+ H (Negative) Urine Ketones Negative (Negative) Urine Blood Negative (Negative) Urine Nitrite Negative (Negative) Urine Bilirubin Negative (Negative) Urine Urobilinogen Negative (Negative) Ur Leukocyte Esterase Negative (Negative) Ethyl Alcohol mg/dL (<10.0) mg/dl SARS-CoV-2, RNA, NAAT NEGATIVE (NEGATIVE) 03/18/22 03/18/22 Range/Units 03:02 04:03 WBC (4.8-10.8) K/uL RBC (4.2-5.4) M/uL Hgb (12.0-16.0) g/dL Hct (37-47) % MCV (80-100) fL MCH (25-34) pg MCHC (32-36) g/dL RDW Std Deviation (36.4-46.3) fL RDW Coeff of Javier (11.5-14.5) % Plt Count (130-400) K/uL MPV (7.4-10.4) fL Immature Gran % (Auto) % Neut % (Auto) % Lymph % (Auto) % [place] % (Auto) % Eos % (Auto) % Baso % (Auto) % Neut # (Auto) (1.4-6.5) K/uL Lymph # (Auto) (1.2-3.4) K/uL [place] # (Auto) (0.11-0.59) K/uL Eos # (Auto) (0-0.5) K/uL Baso # (Auto) (0-0.2) K/uL Immature Gran # (Auto) (0.00-0.02) K/uL VBG pH (7.36-7.41) VBG pCO2 (38-50) mmHg VBG pO2 mmHg VBG HCO3 mmol/L VBG O2 Saturation % VBG Base Excess mEq/L Barometric Pressure mm/Hg Sodium (136-145) mmol/L Potassium (3.5-5.1) mmol/L Chloride (98-107) mmol/L Carbon Dioxide (21-32) mmol/L Anion Gap (3-11) BUN (6-23) mg/dl Creatinine (0.6-1.2) mg/dl Est Cr Clr Drug Dosing ml/min Est GFR ( Amer) ml/min Est GFR (Non-Af Amer) ml/min BUN/Creatinine Ratio (10-20) Glucose (70-99(Fasting)) mg/dl POC Glucose 471 H* 534 H* (70-99) mg/dl Lactate (0.4-2.0) mmol/L Calcium (8.5-10.1) mg/dl Magnesium (1.7-2.4) mg/dl Total Bilirubin (0.2-1.0) mg/dl Direct Bilirubin (0-0.2) mg/dl AST (13-39) U/L ALT (7-52) U/L Alkaline Phosphatase (34-104) U/L Troponin I High Sens (0-14) pg/ml Total Protein (6.0-8.3) gm/dl Albumin (3.4-5.0) gm/dl Triglycerides (0-150) mg/dl Lipase (11-82) U/L Urine Color Urine Appearance (Clear) Urine pH (4.5-7.5) Ur Specific [place] (1.000-1.030) Urine Protein (Negative) Urine Glucose (UA) (Negative) Urine Ketones (Negative) Urine Blood (Negative) Urine Nitrite (Negative) Urine Bilirubin (Negative) Urine Urobilinogen (Negative) Ur Leukocyte Esterase (Negative) Ethyl Alcohol mg/dL (<10.0) mg/dl SARS-CoV-2, RNA, NAAT (NEGATIVE) Administered Medications Discontinued Medications Al Hydrox/Mg Hydrox/Simethicone (Gi Cocktail Ed Use) 1 dose PO ONE ONE Stop: 03/18/22 00:47 Last Admin: 03/18/22 01:04 Dose: 1 dose Documented by: [id number] Enoxaparin Sodium (Enoxaparin Inj 40 Mg/0.4 Ml Syr) 40 mg SQ QAM [facility] Stop: 04/17/22 08:59 Last Admin: 03/18/22 09:18 Dose: 40 mg Documented by: [id number] Fluticasone/Vilanterol (Fluticasone/Vilanterol 100/25mcg 14 Puffs/Inhaler) 1 puffs INH DAILY [facility]; Protocol Stop: 04/17/22 08:59 Last Admin: 03/18/22 09:46 Dose: 1 puffs Documented by: [id number] Hydromorphone HCl (Hydromorphone Inj 1 Mg/Ml Syringe) 1 mg IV NOW STA Stop: 03/18/22 01:51 Last Admin: 03/18/22 02:00 Dose: 1 mg Documented by: [id number] Hydromorphone HCl (Hydromorphone Inj 1 Mg/Ml Syringe) 1 mg IV Q1H PRN PRN Reason: Pain Stop: 04/01/22 02:14 Last Admin: 03/18/22 03:27 Dose: 1 mg Documented by: [id number] Hydromorphone HCl (Hydromorphone Inj 0.5 Mg/0.5 Ml Syr) 0.5 mg IV NOW STA Stop: 03/18/22 05:03 Last Admin: 03/18/22 05:21 Dose: 0.5 mg Documented by: [id number] Sodium Chloride (Nss 1000ml) 1,000 mls @ 999 mls/hr IV .Q1H1M ONE Stop: 03/18/22 01:12 Last Infusion: 03/18/22 01:44 Dose: 0 mls/hr Documented by: [id number] Admin: 03/18/22 01:03 Dose: 999 mls/hr Documented by: [id number] Sodium Chloride (Nss 1000ml) 1,000 mls @ 999 mls/hr IV .Q1H1M ONE Stop: 03/18/22 02:41 Last Infusion: 03/18/22 02:33 Dose: 0 mls/hr Documented by: [id number] Admin: 03/18/22 01:43 Dose: 999 mls/hr Documented by: [id number] Insulin Human Regular 250 (units/ Sodium Chloride) 250 mls @ 6 mls/hr IV .Q24H [facility]ILL[facility]; Protocol Stop: 04/17/22 01:59 Last Titration: 03/18/22 12:35 Dose: 0 units/hr, 0 mls/hr Documented by: [id number] Cosigned by: [id number] Titration: 03/18/22 11:30 Dose: 6 units/hr, 6 mls/hr Documented by: [id number] Cosigned by: [id number] Titration: 03/18/22 10:30 Dose: 4.3 units/hr, 4.3 mls/hr Documented by: [id number] Cosigned by: [id number] Titration: 03/18/22 09:30 Dose: 4.3 units/hr, 4.3 mls/hr Documented by: [id number] Cosigned by: [id number] Titration: 03/18/22 08:30 Dose: 3.6 units/hr, 3.6 mls/hr Documented by: [id number] Cosigned by: [id number] Titration: 03/18/22 07:30 Dose: 2.6 units/hr, 2.6 mls/hr Documented by: [id number] Cosigned by: [id number] Titration: 03/18/22 06:31 Dose: 2.6 units/hr, 2.6 mls/hr Documented by: [id number] Cosigned by: [id number] Titration: 03/18/22 04:10 Dose: 2.2 units/hr, 2.2 mls/hr Documented by: [id number] Cosigned by: [id number] Titration: 03/18/22 03:00 Dose: 1.6 units/hr, 1.6 mls/hr Documented by: [id number] Cosigned by: [id number] Admin: 03/18/22 02:22 Dose: 2 units/hr, 2 mls/hr Documented by: [id number] Cosigned by: [id number] Lactated Ringer's (Lr) 1,000 mls @ 80 mls/hr IV .[id number] STA Stop: 03/18/22 15:50 Last Infusion: 03/18/22 12:35 Dose: 0 mls/hr Documented by: [id number] Admin: 03/18/22 07:31 Dose: 80 mls/hr Documented by: [id number] Insulin Aspart (Insulin Aspart Per Unit) 0 units SC ACHS [facility]ILLA Stop: 04/17/22 07:29 Last Admin: 03/18/22 08:16 Dose: Not Given Documented by: [id number] Cosigned by: [id number] Insulin Glargine (Lantus Per Unit Charge) 34 units SQ 1245 ONE Stop: 03/18/22 12:46 Last Admin: 03/18/22 12:30 Dose: 34 units Documented by: [id number] Cosigned by: [id number] Ioversol (Optiray 320 100ml) 94 ml IV ONCE ONE Stop: 03/18/22 03:45 Last Admin: 03/18/22 03:45 Dose: 94 ml Documented by: [id number] Lisinopril (Lisinopril 2.5 Mg Tab) 2.5 mg PO ONE STA Stop: 03/18/22 05:14 Last Admin: 03/18/22 07:23 Dose: Not Given Documented by: [id number] Loratadine (Loratadine 10 Mg Tab) 10 mg PO NOW STA Stop: 03/18/22 05:14 Last Admin: 03/18/22 05:22 Dose: 10 mg Documented by: [id number] Lorazepam (Lorazepam 0.5 Mg Tab) 0.5 mg PO NOW STA Stop: 03/18/22 05:03 Last Admin: 03/18/22 05:22 Dose: 0.5 mg Documented by: [id number] Morphine Sulfate (Morphine Sulfate 10 Mg/Ml Carp/Vial) 6 mg IV NOW STA Stop: 03/18/22 00:13 Last Admin: 03/18/22 01:03 Dose: 6 mg Documented by: [id number] Morphine Sulfate (Morphine Sulfate 10 Mg/Ml Carp/Vial) 6 mg IV NOW STA Stop: 03/18/22 01:08 Last Admin: 03/18/22 01:25 Dose: 6 mg Documented by: [id number] Ondansetron HCl (Ondansetron Inj 2 Mg/Ml 2 Ml Vial) 4 mg IV NOW STA Stop: 03/18/22 00:13 Last Admin: 03/18/22 01:03 Dose: 4 mg Documented by: [id number] Oxycodone HCl (Oxycodone Hcl Ir 5 Mg Tab (Immediate Release)) 5 mg PO QID PRN PRN Reason: Pain Stop: 04/01/22 06:22 Last Admin: 03/18/22 09:18 Dose: 5 mg Documented by: [id number] Pregabalin (Pregabalin 150 Mg Cap) 150 mg PO BID [facility]ILLA Stop: 04/17/22 08:59 Last Admin: 03/18/22 09:21 Dose: 150 mg Documented by: [id number] Imaging Data Radiologist's Impression: Chest X-Ray 03/18/22 00:13 SINGLE VIEW CHEST CLINICAL HISTORY: Pancreatitis. Diabetic ketoacidosis. FINDINGS: An AP, portable, upright chest radiograph is compared to study dated 01/18/2022. The cardiomediastinal silhouette is unremarkable. The lungs and pleural spaces are clear. No pneumothorax is seen. The bony thorax is grossly intact. IMPRESSION: No active disease in the chest. ACT 112: Negative or not required by law. Electronically signed by: Ranjit Colindres M.D. 03/18/2022 12:39 AM Discharge Plan Visit Data Chief Complaint: Abdominal Pain ED Provider: Chad Small Discharge Problem: Acute hyperglycemia, Acute pancreatitis Patient Disposition: Admitted As Inpatient Discharge Instructions Interventions: ED Discharge Assessment Last Done: 03/18/22 06:37 Discharge Problem: Acute pancreatitis Qualifiers: Pancreatitis type: other Acute pancreatitis complication: unspecified Qualified Code(s): K85.80 - Other acute pancreatitis without necrosis or infection
--- NOTE | 2022-03-18 00:41 | XRay Report ---
SINGLE VIEW CHEST CLINICAL HISTORY: Pancreatitis. Diabetic ketoacidosis. FINDINGS: An AP, portable, upright chest radiograph is compared to study dated 01/18/2022. The cardiome diastinal silhouette is unremarkable. The lungs and pleural spaces are clear. No pneumothorax is seen . The bony thorax is grossly intact. IMPRESSION: No active disease in the chest. ACT 112: Negative or not required by law. Electronically signed by: Ranjit Colindres M.D. 03/18/2022 12:39 AM
[2022-03-18] MEDS ORDERED: GI COCKTAIL ED USE PO ONE (00:46)
[2022-03-18 00:47] LABS: Basophils # (auto) 0.06 K/uL (0-0.2); Basophils % (auto) 0.7 %; Eosinophils # (auto) 0.29 K/uL (0-0.5); Eosinophils % (auto) 3.3 %; Hematocrit (blood only) 41.5 % (37-47); Hemoglobin 13.4 g/dL (12.0-16.0); Immature Granulocytes # (auto) 0.04 K/uL (0.00-0.02); Immature Granulocytes % (auto) 0.5 %; Lymphocytes # (auto) 2.13 K/uL (1.2-3.4); Mean Corpuscular Hemoglobin 30.3 pg (25-34); Mean Corpuscular Hgb Conc 32.3 g/dL (32-36); Mean Corpuscular Volume 93.9 fL (80-100); Mean Platelet Volume 11.2 fL (7.4-10.4); Monocytes # (auto) 0.46 K/uL (0.11-0.59); Monocytes % (auto) 5.2 %; Neutrophils % (auto) 66.3 %; Platelet Count 248 K/uL (130-400); RDW Coefficient of Variation 14.4 % (11.5-14.5); RDW Standard Deviation 49.1 fL (36.4-46.3); Red Blood Count 4.42 M/uL (4.2-5.4); White Blood Count 8.88 K/uL (4.8-10.8)
[2022-03-18 01:14] LABS: Troponin I High Sensitivity 8.2 pg/ml (0-14)
[2022-03-18 01:15] LABS: Base Excess VBG -0.5 mEq/L; Oxygen Saturation VBG 71.8 %; pH VBG 7.37 (7.36-7.41)
[2022-03-18 01:19] LABS: Appearance Urine Clear (Clear); Bilirubin Urine Negative (Negative); Blood Urine Negative (Negative); Color Urine Yellow; Glucose Urine UA 3+ (Negative); Ketones Urine Negative (Negative); Leukocyte Esterase Urine Negative (Negative); Nitrite Urine Negative (Negative); Protein Urine Negative (Negative); Specific Gravity Urine 1.026 (1.000-1.030); Urobilinogen Urine Negative (Negative)
[2022-03-18 01:42] LABS: Albumin Level 4.3 gm/dl (3.4-5.0); BUN Creatinine Ratio 15.1 (10-20); Bilirubin,Total 0.4 mg/dl (0.2-1.0); Creatinine Clr Calc Pharmacy 59.7 ml/min; Est GFR (African American) 60.4 ml/min; Est GFR (Non-African American) 52.1 ml/min; Magnesium 1.8 mg/dl (1.7-2.4); Potassium 4.1 mmol/L (3.5-5.1); Total Protein 7.2 gm/dl (6.0-8.3)
[2022-03-18] MEDS ORDERED: MODERATE STRESS LEVEL ONE (01:47)
[2022-03-18] MEDS ORDERED: INSULIN PROTOCOL GOAL RANGE ONE (01:47)
[2022-03-18] MEDS ORDERED: STAT IV Infusion **Titration per Protocol STA (01:47)
[2022-03-18] MEDS ORDERED: HYDROmorphone INJ 1 MG/ML SYRINGE IV STA (01:50)
[2022-03-18] MEDS ORDERED: INSULIN REGULAR 250 UNITS in SODIUM CHLORIDE 0.9% 247.5 ML IV SCH (02:00)
[2022-03-18] MEDS ORDERED: HYDROmorphone INJ 1 MG/ML SYRINGE IV PRN (02:15)
[2022-03-18] MEDS ORDERED: LACTATED RINGER'S 1,000 ML IV STA (03:21)
[2022-03-18] MEDS ORDERED: OPTIRAY 320 100ml IV ONE (03:44)
[2022-03-18] MEDS ORDERED: LORazepam 0.5 MG TAB PO STA (05:02)
[2022-03-18] MEDS ORDERED: HYDROmorphone INJ 0.5 MG/0.5 ML SYR IV STA (05:02)
--- NOTE | 2022-03-18 05:04 | History & Physical Report ---
Date of Service March 18, 2022 Assessment & Plan (1) Hyperglycemic crisis in diabetes mellitus: Plan: History DM2 insulin requiring Suboptimal control as of recent outpatient hemoglobin A1c of 13.16 Feb 2022 (Improved however following recent confinement.) Patient admits to difficulties with DM care and watching her diet. Recurrent abdominal pain reminiscent of pancreatitis attack Serum lipase normal. Initial CT read negative for pancreatitis. 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 6 asthma/COPD as per patient, symptoms at baseline ongoing tobacco abuse GMF IV insulin for now Pharmacy glycemic control consult Additional DM education regarding home DM care Nutrition consult Re: DM nutrition education Follow official CT abdomen pelvis results Clear liquids for now until CT results known Initiate lisinopril for BP control Nicotine patch as needed DVT prophylaxis. Lovenox subcu Full code Text document was generated using [employer] voice recognition software. It may contain grammatical or spelling errors. Kindly contact undersigned for clarification of any documentation item in question. History of Present Illness Chief Complaint: Abdominal pain Primary Care Provider: Michael Nair MD History obtained from patient and records. Medical history significant for hypertension, hyperlipidemia, cirrhosis, anxiety/mood disorder migraine, DM 2 insulin requiring, hypothyroidism (currently not on medications ), asthma/COPD as per patient, ongoing tobacco abuse. Last confinement January 2022 for acute pancreatitis possibly secondary to hypertriglyceridemia or Trulicity. Patient discharged on home insulin for diabetes control. At home, patient struggling with blood sugar control. Having trouble with fingerstick checks and watching what she is eating. Patient was in bed last night when she experienced achy epigastric pain similar to pancreatitis attack. Admits to tortellini dinner and a glass of apple cider. No chest pain, no SOB. Usual migraine attack. Patient consulted ER for evaluation. BSG noted to be 700s. IV insulin initiated at the ER. Medical History as above Surgical History : BTL, hip replacement, breast reduction Family History : Cirrhosis, disorder, DM Personal/Social history : 1 pack daily, occasional EtOH intake, disabled, lives with dog Allergies Allergy/AdvReac Type Severity Reaction Status Date / Time cephalexin [From Keflex] Allergy Severe Vomiting Unverified 01/18/22 12:04 Sulfa (Sulfonamide Allergy Severe Vomiting Unverified 01/18/22 12:04 Antibiotics) Home Medications Medication Instructions Recorded Confirmed Type amitriptyline 100 mg tablet 100 mg PO HS 01/18/22 01/18/22 History fremanezumab-vfrm 225 mg/1.5 mL 1 mg SUBCUT MONTHLY 01/18/22 01/18/22 History subcutaneous syringe (Ajovy Syringe) magnesium oxide 400 mg PO DAILY 01/18/22 01/18/22 History metformin 500 mg tablet,extended 500 mg PO BID 01/18/22 01/18/22 History release 24 hr pregabalin 75 mg capsule 150 mg PO BID 01/18/22 01/18/22 History blood sugar diagnostic (OneTouch #100 ea 01/20/22 Rx Verio test strips) insulin glargine 100 unit/mL (3 22 unit SUBCUT QAM #15 ml 01/20/22 Rx mL) subcutaneous pen (Basaglar KwikPen U-100 Insulin) lancets 30 gauge (ZolloTouch Delica #100 ea 01/20/22 Rx Lancets) pen needle,diabetic, disp unit 32 #100 ea 01/20/22 Rx gauge x 5/32", remover and disposal unit fluticasone 500 mcg-salmeterol 50 INHALATION 03/18/22 History mcg/dose blistr powdr for inhalation (Advair Diskus) Past Med/Surg History Medical History Anxiety Bipolar 1 disorder Diabetic neuropathy Fatty liver HLD (hyperlipidemia) Hx of migraines Hypothyroidism T2DM (type 2 diabetes mellitus) Tobacco abuse Surgical History History of bilateral hip arthroplasty History of reduction mammoplasty Family History Mother CAMPUZANO (nonalcoholic steatohepatitis) Father Bipolar disorder Social History Smoking Status: Unknown if ever smoked Tobacco Type: Cigarettes packs per day: 1; Cigarettes Per Day: 1/2 ppd; Second Hand Exposure: No; Hx Alcohol Use: Yes Preferred Language: Occitan Communication Ability: Effective Block Placer Required: No Beliefs That Will Affect Care: None marital status: Single Current Living Situation: Alone Feels Safe at Home: Yes Safety Concerns: Feels Safe At This Time Assistive Devices: None Review of Systems Review of Systems: As per HPI, all other systems reviewed and negative Physical Exam Physical Exam: GENERAL: uncomfortable, obese, anxious, no respiratory distress SKIN: Normal color, warm HEENT: [place] palpebral conjunctivae, no ptosis, dry buccal mucosa NECK : Supple, no tenderness CHEST : Decreased breath sounds, occasional expiratory wheezes, no tenderness HEART : RRR, no obvious murmurs ABDOMEN: Some distention, epigastric tenderness EXTREMITIES : No LE swelling/tenderness, no other conspicuous deformities noted NEUROLOGIC : Coherent, no facial asymmetry, no other gross focality Results & Data Results & Data ([facility]) Vital Signs (Past 12 Hours) Vital Signs Temp Pulse Pulse Resp BP BP Pulse Ox 03/18/22 04:00 97 H 18 165/86 H 98 03/18/22 02:00 95 H 18 117/81 95 03/18/22 00:00 36.8 C 105 H 103 H 18 169/86 H 169/86 H 96 Laboratory Results Laboratory Results WBC 8.88 K/uL (4.8-10.8) 03/18/22 00:25 RBC 4.42 M/uL (4.2-5.4) 03/18/22 00:25 Hgb 13.4 g/dL (12.0-16.0) 03/18/22 00:25 Hct 41.5 % (37-47) 03/18/22 00:25 MCV 93.9 fL (80-100) 03/18/22 00:25 MCH 30.3 pg (25-34) 03/18/22 00:25 MCHC 32.3 g/dL (32-36) 03/18/22 00:25 RDW Std Deviation 49.1 fL (36.4-46.3) H 03/18/22 00:25 RDW Coeff of Javier 14.4 % (11.5-14.5) 03/18/22 00:25 Plt Count 248 K/uL (130-400) 03/18/22 00:25 MPV 11.2 fL (7.4-10.4) H 03/18/22 00:25 Immature Gran % (Auto) 0.5 % 03/18/22 00:25 Neut % (Auto) 66.3 % 03/18/22 00:25 Lymph % (Auto) 24.0 % 03/18/22 00:25 [place] % (Auto) 5.2 % 03/18/22 00:25 Eos % (Auto) 3.3 % 03/18/22 00:25 Baso % (Auto) 0.7 % 03/18/22 00:25 Neut # (Auto) 5.90 K/uL (1.4-6.5) 03/18/22 00:25 Lymph # (Auto) 2.13 K/uL (1.2-3.4) 03/18/22 00:25 Dixon # (Auto) 0.46 K/uL (0.11-0.59) 03/18/22 00:25 Eos # (Auto) 0.29 K/uL (0-0.5) 03/18/22 00:25 Baso # (Auto) 0.06 K/uL (0-0.2) 03/18/22 00:25 Immature Gran # (Auto) 0.04 K/uL (0.00-0.02) H 03/18/22 00:25 VBG pH 7.37 (7.36-7.41) 03/18/22 00:54 VBG pCO2 44 mmHg (38-50) 03/18/22 00:54 VBG pO2 38 mmHg 03/18/22 00:54 VBG HCO3 25 mmol/L 03/18/22 00:54 VBG O2 Saturation 71.8 % 03/18/22 00:54 VBG Base Excess -0.5 mEq/L 03/18/22 00:54 Barometric Pressure 729.6 mm/Hg 03/18/22 00:54 Sodium 128 mmol/L (136-145) L 03/18/22 00:25 Potassium 4.1 mmol/L (3.5-5.1) 03/18/22 00:25 Chloride 93 mmol/L (98-107) L 03/18/22 00:25 Carbon Dioxide 24 mmol/L (21-32) 03/18/22 00:25 Anion Gap 11 (3-11) 03/18/22 00:25 BUN 18 mg/dl (6-23) 03/18/22 00:25 Creatinine 1.19 mg/dl (0.6-1.2) 03/18/22 00:25 Est Cr Clr Drug Dosing 59.7 ml/min 03/18/22 00:25 Est GFR ( Amer) 60.4 ml/min 03/18/22 00:25 Est GFR (Non-Af Amer) 52.1 ml/min 03/18/22 00:25 BUN/Creatinine Ratio 15.1 (10-20) 03/18/22 00:25 Glucose 747 mg/dl (70-99(Fasting)) H* 03/18/22 00:25 POC Glucose 534 mg/dl (70-99) H* 03/18/22 04:03 Lactate 1.3 mmol/L (0.4-2.0) 03/18/22 02:14 Calcium 9.0 mg/dl (8.5-10.1) 03/18/22 00:25 Magnesium 1.8 mg/dl (1.7-2.4) 03/18/22 00:25 Total Bilirubin 0.4 mg/dl (0.2-1.0) 03/18/22 00:25 Direct Bilirubin 0.0 mg/dl (0-0.2) 03/18/22 00:25 AST 42 U/L (13-39) H 03/18/22 00:25 ALT 64 U/L (7-52) H 03/18/22 00:25 Alkaline Phosphatase 155 U/L (34-104) H 03/18/22 00:25 Troponin I High Sens 8.2 pg/ml (0-14) 03/18/22 00:25 Total Protein 7.2 gm/dl (6.0-8.3) 03/18/22 00:25 Albumin 4.3 gm/dl (3.4-5.0) 03/18/22 00:25 Triglycerides 604 mg/dl (0-150) H 03/18/22 00:25 Lipase 66 U/L (11-82) 03/18/22 00:25 Urine Color Yellow 03/18/22 01:05 Urine Appearance Clear (Clear) 03/18/22 01:05 Urine pH 7.0 (4.5-7.5) 03/18/22 01:05 Ur Specific [place] 1.026 (1.000-1.030) 03/18/22 01:05 Urine Protein Negative (Negative) 03/18/22 01:05 Urine Glucose (UA) 3+ (Negative) H 03/18/22 01:05 Urine Ketones Negative (Negative) 03/18/22 01:05 Urine Blood Negative (Negative) 03/18/22 01:05 Urine Nitrite Negative (Negative) 03/18/22 01:05 Urine Bilirubin Negative (Negative) 03/18/22 01:05 Urine Urobilinogen Negative (Negative) 03/18/22 01:05 Ur Leukocyte Esterase Negative (Negative) 03/18/22 01:05 Ethyl Alcohol mg/dL < 10.0 mg/dl (<10.0) 03/18/22 00:25 SARS-CoV-2, RNA, NAAT NEGATIVE (NEGATIVE) 03/18/22 02:05 Impressions Chest X-Ray 03/18/22 00:13 SINGLE VIEW CHEST CLINICAL HISTORY: Pancreatitis. Diabetic ketoacidosis. FINDINGS: An AP, portable, upright chest radiograph is compared to study dated 01/18/2022. The cardiomediastinal silhouette is unremarkable. The lungs and pleural spaces are clear. No pneumothorax is seen. The bony thorax is grossly intact. IMPRESSION: No active disease in the chest. ACT 112: Negative or not required by law. Electronically signed by: Ranjit Colindres M.D. 03/18/2022 12:[address] abdomen pelvis initial read: No CT evidence of acute pancreatitis. Hepatomegalyand fattyinfiltration of the liver. Additionally there is nodular contour of the liver concerning for cirrhosis. The remaining solid organs are within normal limits. No bowel obstruction. Normal appendix. There is significant stool throughout the colon suggestive constipation. No fracture.
[2022-03-18] MEDS ORDERED: PHARMACY GLYCEMIC MGMT CONSULT PRN (05:11)
[2022-03-18] MEDS ORDERED: HYDROmorphone INJ 0.5 MG/0.5 ML SYR IV PRN (05:11)
[2022-03-18] MEDS ORDERED: ACETAMINOPHEN 325 MG TAB PO PRN (05:11)
[2022-03-18] MEDS ORDERED: oxyCODONE HCL IR 5 MG TAB (IMMEDIATE RELEASE) PO PRN ×2 (05:11→06:23)
[2022-03-18] MEDS ORDERED: hydrOXYzine HCl 10 MG TAB PO PRN (05:11)
[2022-03-18] MEDS ORDERED: PROMETHAZINE HCL 12.5 MG in SODIUM CHLORIDE 0.9% 50 ML IV PRN (05:11)
[2022-03-18] MEDS ORDERED: LORATADINE 10 MG TAB PO STA (05:13)
[2022-03-18] MEDS ORDERED: lisinopril 2.5 MG TAB PO STA (05:13)
[2022-03-18] MEDS ORDERED: LORazepam 0.5 MG TAB PO PRN (07:17)
[2022-03-18] MEDS ORDERED: MELATONIN 3 MG TAB PO PRN (07:17)
[2022-03-18] MEDS ORDERED: INSULIN ASPART PER UNIT SC SCH (07:30)
[2022-03-18] MEDS ORDERED: ENOXAPARIN INJ 40 MG/0.4 ML SYR SQ SCH (09:00)
[2022-03-18] MEDS ORDERED: PREGABALIN 150 MG CAP PO SCH (09:00)
[2022-03-18] MEDS ORDERED: FLUTICASONE/VILANTEROL 100/25MCG 14 PUFFS/INHALER INH SCH (09:00)
--- NOTE | 2022-03-18 10:34 | CT Scan Report ---
ABDOMEN AND PELVIS CT WITH IV CONTRAST CT DOSE: 672.49 mGy.cm HISTORY: Acute generalized abdominal pain abd pain TECHNIQUE: Multiaxial CT images of the abdomen and pelvis were performed following the IV administrat ion of 94 cc of Optiray, A dose lowering technique was utilized adhering to the principles of ALARA. COMPARISON STUDY: CT abdomen and pelvis 01/18/2022 FINDINGS: The lung bases are clear. No pneumatosis or pneumoperitoneum. Unremarkable spleen, pancreas and adren al glands. Cholelithiasis without CT evidence of acute cholecystitis. Thyromegaly with hepatic steato sis. No hepatic mass. Marginal nodularity of the liver redemonstrated. Patency of the hepatic and por sami veins. Unremarkable kidneys without hydronephrosis. 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 Uterus and adnexa are unremarkable. Unremarkable urinary bladder. Atherosclerosis of the aorta w ithout aneurysm. There is no lymphadenopathy. No bowel obstruction or bowel wall thickening. Moderate to extensive fecal retention of the colon. Noninflamed appendix. No ascites or mesenteric inflammati on. Unremarkable soft tissues. Bilateral hip total joint arthroplasties. IMPRESSION: 1. No bowel obstruction or bowel wall thickening. Normal appendix. 2. Moderate to extensive fecal retention. 3. Hepatomegaly with hepatic steatosis and findings suggestive of early cirrhosis. 4. Cholelithiasis. ACT 112: Negative or not required by law. The above report was generated using voice recognition software. It may contain grammatical, syntax o r spelling errors. Electronically signed by: Stefan Dominguez M.D. 03/18/2022 10:32 AM
[2022-03-18] MEDS ORDERED: bisacodyL 5 MG TABEC PO ONE (11:45)
[2022-03-18] MEDS ORDERED: PSYLLIUM or GUAR GUM FIBER POWDER PACKET PO SCH (11:45)
[2022-03-18] MEDS ORDERED: LANTUS PER UNIT CHARGE SQ ONE (12:45)
[2022-03-18] MEDS ORDERED: AMITRIPTYLINE HCL 100 MG TAB PO SCH (21:00)
--- NOTE | 2022-03-19 08:22 | Electrocardiogram Report ---
Test Reason : Blood Pressure : / mmHG Vent. Rate : 103 BPM Atrial Rate : 103 BPM P-R Int : 186 ms QRS Dur : 076 ms QT Int : 356 ms P-R-T Axes : 033 025 037 degrees QTc Int : 466 ms Sinus tachycardia Otherwise normal ECG When compared with ECG of 18-JAN-2022 14:12, No significant change was found Confirmed by Aj Short ([id number]) on 03/19/2022 8:21:44 AM Referred By: REFERRED SELF Confirmed By:Aj Short
[2022-03-19] MEDS ORDERED: lisinopril 2.5 MG TAB PO SCH (09:00)
== END 2022-03-18 12:45 | disposition left against medical advice (07) | DRG 639 ==
LOC: ED 23:59 → 2S 03-18 05:07 → INTOOBSV 03-18 05:07 → 2S 03-18 06:37

== ENCOUNTER 2022-09-18 14:57 | Observation (INO) ==
[2022-09-18 16:35] LABS: Appearance Urine Clear (Clear); Bilirubin Urine Negative (Negative); Blood Urine Negative (Negative); Color Urine Yellow; Glucose Urine UA 3+ (Negative); Ketones Urine Negative (Negative); Leukocyte Esterase Urine Negative (Negative); Nitrite Urine Negative (Negative); Protein Urine Negative (Negative); Specific Gravity Urine 1.033 (1.000-1.030); Urobilinogen Urine Negative (Negative); pH Urine 5.5 (4.5-7.5)
[2022-09-18 16:36] LABS: Basophils % (auto) 1.1 %; Eosinophils # (auto) 0.28 K/uL (0-0.50); Eosinophils % (auto) 3.1 %; Hematocrit (blood only) 44.9 % (34.1-44.9); Hemoglobin 15.1 g/dl (12.0-16.0); Immature Granulocytes # (auto) 0.05 K/uL (0.00-0.02); Immature Granulocytes % (auto) 0.6 %; Lymphocytes # (auto) 2.73 K/uL (1.2-3.4); Lymphocytes % (auto) 30.3 %; Mean Corpuscular Hemoglobin 29.6 pg (25.0-34.0); Mean Corpuscular Hgb Conc 33.6 g/dL (32.0-36.0); Mean Platelet Volume 10.5 fL (9.4-12.3); Monocytes # (auto) 0.47 K/uL (0.24-0.82); Monocytes % (auto) 5.2 %; Neutrophils # (auto) 5.38 K/uL (1.4-6.5); Neutrophils % (auto) 59.7 %; Platelet Count 211 K/uL (130-400); RDW Coefficient of Variation 14.1 % (11.5-14.5); RDW Standard Deviation 44.8 fL (36.4-46.3); White Blood Count 9.01 K/ul (4.8-10.8)
[2022-09-18 17:16] LABS: Albumin Globulin Ratio 1.3 (0.9-2); Albumin Level 4.1 gm/dl (3.4-5.0); BUN Creatinine Ratio 16.5 (10-20); Bilirubin,Total 0.5 mg/dl (0.2-1.0); Calcium 9.4 mg/dl (8.5-10.1); Creatinine Clr Calc Pharmacy 87.7 ml/min; Est GFR (Non-African American) 77.7 ml/min; Globulin 3.1 gm/dl (2.5-4.0); Potassium 4.3 mmol/L (3.5-5.1); Total Protein 7.2 gm/dl (6.0-8.3)
[2022-09-18] MEDS ORDERED: SODIUM CHLORIDE 0.9% 1000ML 1,000 ML IV ONE ×2 (19:12→21:44)
[2022-09-18] MEDS ORDERED: METOCLOPRAMIDE HCL INJ 5 MG/ML 2 ML VIAL IV ONE (19:12)
[2022-09-18] MEDS ORDERED: diphenhydrAMINE 50 MG/ML VIAL IV STA (19:12)
[2022-09-18] MEDS ORDERED: KETOROLAC TROMETHAMINE 15 MG/ML VIAL IV STA (19:12)
--- NOTE | 2022-09-18 20:43 | XRay Report ---
XR abdomen 2V w PA chest HISTORY: 52 years-old Female epigastric pain . Acute chest and abdominal pain COMPARISON: None TECHNIQUE: PA view the chest with erect and supine views of the abdomen FINDINGS: Cardiomediastinal and hilar silhouettes are within normal limits. No pneumothorax, pleural effusion, airspace consolidation or overt pulmonary edema. Degenerative changes of the shoulders and spine. Mil d right hemidiaphragmatic elevation. This body of the left subscapularis recess. No pneumatosis or pneumoperitoneum. Nonobstructive bowel gas pattern. No urolith identified. No acute fracture. Mild to moderate colonic fecal retention. Bilateral hip total joint arthroplasties. IMPRESSION: 1. No acute processes of the chest. 2. Nonobstructive bowel gas pattern. ACT 112: Negative or not required by law. The above report was generated using voice recognition software. It may contain grammatical, syntax o r spelling errors. Electronically signed by: Stefan Dominguez M.D. 09/18/2022 8:42 PM
--- NOTE | 2022-09-18 20:49 | CT Scan Report ---
CT head/brain wo con CLINICAL HISTORY: 52 years-old Female with noe. Acute headache with dizziness TECHNIQUE: Multiple axial CT images of the head were obtained without contrast. A dose lowering tech nique was utilized adhering to the principles of ALARA. CT DOSE: 2456.62 mGy.cm COMPARISON: None. FINDINGS: No acute intracranial hemorrhage, midline shift, intracranial mass, hydrocephalus, territorial ischem ia or abnormal extra-axial collection. Mildly motion degraded exam. The calvarium is intact. Prior bilateral lens repair. The paranasal sinuses, mastoid air cells, and m iddle ear cavities are clear. IMPRESSION: No acute intracranial abnormality. ACT 112: Negative or not required by law. The above report was generated using voice recognition software. It may contain grammatical, syntax o r spelling errors. Electronically signed by: Stefan Dominguez M.D. 09/18/2022 8:47 PM
[2022-09-18] MEDS ORDERED: MoRPHine SULFATE 4 MG/ML 1 ML CARP\\VIAL IV STA (21:44)
[2022-09-18] MEDS ORDERED: ONDANSETRON INJ 2 MG/ML 2 ML VIAL IV STA (21:44)
[2022-09-18] MEDS ORDERED: LACTATED RINGER'S 1,000 ML IV ONE (22:26)
--- NOTE | 2022-09-18 22:29 | History & Physical Report ---
Date of Service September 18, 2022 Assessment & Plan (1) Abdominal pain: Plan: Multifactorial : Recurrent pancreatitis, ? Secondary to hypertriglyceridemia Transaminitis Possible colitis rule out C. difficile, recent antibiotic Rx hypertension, stable hyperlipidemia on statin Rx NAFLD cirrhosis, some signs of fluid retention anxiety/mood disorder/borderline personality disorder, at baseline migraine headache at baseline DM 2 insulin requiring, suboptimal control as of recent hemoglobin A1c of 13.3 last July 2022 hypothyroidism (currently not on medications), TSH slightly elevated at 5.1 last July 2022 asthma/COPD as per patient, symptoms at baseline drug-seeking behavior as per records ongoing tobacco abuse. GMF Analgesia, bowel rest Gentle IVF given fluid retention symptoms Lasix 1 dose now Judicious narcotic use given history of drug-seeking behavior IV insulin for now for uncontrolled sugars and hypertriglyceridemia Stool C. difficile GI consult Re: Pancreatitis, hepatitis Trend LFTs, hold statin for now Pharmacy glycemic control consult Nicotine patch as needed DVT prophylaxis. Lovenox subcu Full code Text document was generated using [employer] voice recognition software. It may contain grammatical or spelling errors. Kindly contact undersigned for clarification of any documentation item in question. History of Present Illness Chief Complaint: Abdominal pain Primary Care Provider: Dr. Nair History obtained from patient and records. Medical history significant for hypertension, hyperlipidemia, cirrhosis, past history of pancreatitis, anxiety/mood disorder/borderline personality disorder, migraine, DM 2 insulin requiring, hypothyroidism (currently not on medications), asthma/COPD as per patient, drug-seeking behavior as per records, ongoing tobacco abuse. Patient confined last January 2022 for acute pancreatitis possibly secondary to hypertriglyceridemia or Trulicity. Last confinement March 2022 for hyperglycemic crisis. Few days history of upper achy abdominal pain pain associated with watery diarrhea and dry heaving symptoms. Levaquin Rx about 2 months ago for sinus infection. No chest pain, no shortness of breath. Upper arms retaining fluid as per patient. Usual migraine headache. No recent EtOH intake. No fever, no chills. Patient consulted ER for worsening symptoms. Medical Historyas above Surgical History : BTL, hip replacement, breast reduction Family History : Cirrhosis, disorder, DM Personal/Social history : 1 pack daily, occasional EtOH intake, disabled, lives with dog Allergies Allergy/AdvReac Type Severity Reaction Status Date / Time cephalexin [From Keflex] Allergy Severe Vomiting/HI Verified 09/19/22 07:50 VES Sulfa (Sulfonamide Allergy Severe VOMITING/HI Verified 09/19/22 07:50 Antibiotics) VES duloxetine [From Cymbalta] Allergy Unknown Unverified 09/19/22 07:50 Home Medications Medication Instructions Recorded Confirmed Type amitriptyline 100 mg tablet 200 mg PO HS 01/18/22 08/30/22 History magnesium oxide 400 mg PO DAILY 01/18/22 08/30/22 History blood sugar diagnostic (RentmetricsTouch #100 ea 01/20/22 Rx Verio test strips) lancets 30 gauge (OneTouch Delica #100 ea 01/20/22 Rx Lancets) pen needle,diabetic, disp unit 32 #100 ea 01/20/22 Rx gauge x 5/32", remover and disposal unit fluticasone propionate 230 2 puff inhalation BID 08/30/22 08/30/22 History mcg-salmeterol 21 mcg/actuation HFA inhaler (Advair HFA) fremanezumab-vfrm 225 mg/1.5 mL 0 mg subcut DIRECTED 08/30/22 08/30/22 History subcutaneous syringe (Ajovy Syringe) insulin aspart U-100 100 unit/mL 42 unit subcut TID 08/30/22 08/30/22 History (3 mL) subcutaneous pen (Novolog Flexpen U-100 Insulin aspart) insulin glargine 100 unit/mL (3 100 unit subcut QAM 08/30/22 08/30/22 History mL) subcutaneous pen (Basaglar KwikPen U-100 Insulin) pregabalin 150 mg capsule 150 mg PO BID 08/30/22 08/30/22 History rizatriptan 10 mg tablet 10 mg PO DIRECTED PRN Migraine 08/30/22 08/30/22 History Headache simvastatin 40 mg tablet 40 mg PO QPM 08/30/22 08/30/22 History albuterol sulfate 90 mcg/actuation 2 puff inhalation Q4H PRN 09/18/22 09/18/22 History aerosol inhaler Shortness Of Breath Or Wheezing amitriptyline 100 mg tablet 200 mg PO HS 09/18/22 09/18/22 History cariprazine 1.5 mg capsule 1.5 mg PO QAM 09/18/22 09/18/22 History (Vraylar) fenofibrate nanocrystallized 145 145 mg PO QAM 09/18/22 09/18/22 History mg tablet fluticasone propionate 230 2 puff inhalation AMPM 09/18/22 09/18/22 History mcg-salmeterol 21 mcg/actuation HFA inhaler (Advair HFA) fremanezumab-vfrm 225 mg/1.5 mL 225 mg subcut Q3M 09/18/22 09/18/22 History subcutaneous syringe (Ajovy Syringe) insulin aspart U-100 100 unit/mL 44 unit subcut TIDM 09/18/22 09/18/22 History (3 mL) subcutaneous pen (Novolog Flexpen U-100 Insulin aspart) insulin glargine 100 unit/mL (3 74 unit subcut QAM 09/18/22 09/18/22 History mL) subcutaneous pen (Basaglar KwikPen U-100 Insulin) magnesium oxide 400 mg (241.3 mg 400 mg PO QAM 09/18/22 09/18/22 History magnesium) tablet nabumetone 500 mg tablet 500 mg PO .AM&HS 09/18/22 09/18/22 History pregabalin 150 mg capsule 150 mg PO .AM& HS 09/18/22 09/18/22 History riboflavin (vitamin B2) 400 mg 400 mg PO QAM 09/18/22 09/18/22 History tablet rizatriptan 10 mg tablet 10 mg PO .DAILY/UD PRN Migraine 09/18/22 09/18/22 History Headache simvastatin 40 mg tablet 40 mg PO QPM 09/18/22 09/18/22 History valacyclovir 1 gram tablet 1,000 mg PO QAM 09/18/22 09/18/22 History Past Med/Surg History Medical History Acute hyperglycemia Acute pancreatitis Anxiety Diabetic neuropathy Elevated LFTs Fatty liver HLD (hyperlipidemia) Hx of migraines Hypothyroidism T2DM (type 2 diabetes mellitus) Tobacco abuse Surgical History History of bilateral hip arthroplasty History of reduction mammoplasty Family History Mother CAMPUZANO (nonalcoholic steatohepatitis) Father Bipolar disorder Social History (System 09/19/22 @ 07:50 by Danika Angeles) Smoking Status: Current every day smoker Tobacco Type: Cigarettes packs per day: 1; Cigarettes Per Day: 1/2 ppd; Second Hand Exposure: No; Hx Alcohol Use: Yes Preferred Language: Lao Communication Ability: Effective 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 Beliefs That Will Affect Care: None marital status: Single Current Living Situation: Alone Feels Safe at Home: Yes Assistive Devices: None Review of Systems Review of Systems: As per HPI, all other systems reviewed and negative Physical Exam Physical Exam: GENERAL: obese, slightly anxious, no respiratory distress SKIN: Normal color, warm HEENT: [place] palpebral conjunctivae, no ptosis, dry buccal mucosa NECK : Supple, no tenderness CHEST : Decreased breath sounds, no tenderness HEART : RRR, no obvious murmurs ABDOMEN: Some distention, epigastric tenderness EXTREMITIES : Minimal UE/LE swelling, no LE tenderness, no other conspicuous deformities noted NEUROLOGIC : Coherent, no facial asymmetry, no other gross focality Results & Data Results & Data ([facility]) Vital Signs (Past 12 Hours) Vital Signs Temp Pulse Pulse Resp BP BP Pulse Ox 09/18/22 21:19 96 H 125/64 100 09/18/22 19:24 106 H 98 09/18/22 15:14 36.5 C 107 H 20 149/90 H 92 O2 Del Method 09/18/22 21:19 Room Air 09/18/22 19:24 Room Air 09/18/22 15:14 Room Air Laboratory Results Laboratory Results WBC 9.01 K/ul (4.8-10.8) 09/18/22 16:15 RBC 5.10 M/uL (3.93-5.22) 09/18/22 16:15 Hgb 15.1 g/dl (12.0-16.0) 09/18/22 16:15 Hct 44.9 % (34.1-44.9) 09/18/22 16:15 MCV 88.0 fL (80.0-100.0) 09/18/22 16:15 MCH 29.6 pg (25.0-34.0) 09/18/22 16:15 MCHC 33.6 g/dL (32.0-36.0) 09/18/22 16:15 RDW Std Deviation 44.8 fL (36.4-46.3) 09/18/22 16:15 RDW Coeff of Javier 14.1 % (11.5-14.5) 09/18/22 16:15 Plt Count 211 K/uL (130-400) 09/18/22 16:15 MPV 10.5 fL (9.4-12.3) 09/18/22 16:15 Immature Gran % (Auto) 0.6 % 09/18/22 16:15 Neut % (Auto) 59.7 % 09/18/22 16:15 Lymph % (Auto) 30.3 % 09/18/22 16:15 [place] % (Auto) 5.2 % 09/18/22 16:15 Eos % (Auto) 3.1 % 09/18/22 16:15 Baso % (Auto) 1.1 % 09/18/22 16:15 Neut # (Auto) 5.38 K/uL (1.4-6.5) 09/18/22 16:15 Lymph # (Auto) 2.73 K/uL (1.2-3.4) 09/18/22 16:15 [place] # (Auto) 0.47 K/uL (0.24-0.82) 09/18/22 16:15 Eos # (Auto) 0.28 K/uL (0-0.50) 09/18/22 16:15 Baso # (Auto) 0.10 K/uL (0-0.2) 09/18/22 16:15 Immature Gran # (Auto) 0.05 K/uL (0.00-0.02) H 09/18/22 16:15 Sodium 134 mmol/L (136-145) L 09/18/22 16:15 Potassium 4.3 mmol/L (3.5-5.1) 09/18/22 16:15 Chloride 99 mmol/L (98-107) 09/18/22 16:15 Carbon Dioxide 24 mmol/L (21-32) 09/18/22 16:15 Anion Gap 11 (3-11) 09/18/22 16:15 BUN 14 mg/dl (6-23) 09/18/22 16:15 Creatinine 0.85 mg/dl (0.6-1.2) 09/18/22 16:15 Est Cr Clr Drug Dosing 87.7 ml/min 09/18/22 16:15 Est GFR ( Amer) 90.0 ml/min 09/18/22 16:15 Est GFR (Non-Af Amer) 77.7 ml/min 09/18/22 16:15 BUN/Creatinine Ratio 16.5 (10-20) 09/18/22 16:15 Glucose 377 mg/dl (70-99(Fasting)) H* 09/18/22 16:15 Calcium 9.4 mg/dl (8.5-10.1) 09/18/22 16:15 Total Bilirubin 0.5 mg/dl (0.2-1.0) 09/18/22 16:15 AST 95 U/L (13-39) H 09/18/22 16:15 ALT 113 U/L (7-52) H 09/18/22 16:15 Alkaline Phosphatase 159 U/L (34-104) H 09/18/22 16:15 Total Protein 7.2 gm/dl (6.0-8.3) 09/18/22 16:15 Albumin 4.1 gm/dl (3.4-5.0) 09/18/22 16:15 Globulin 3.1 gm/dl (2.5-4.0) 09/18/22 16:15 Albumin/Globulin Ratio 1.3 (0.9-2) 09/18/22 16:15 Lipase 274 U/L (11-82) H 09/18/22 16:15 Urine Color Yellow 09/18/22 16:15 Urine Appearance Clear (Clear) 09/18/22 16:15 Urine pH 5.5 (4.5-7.5) 09/18/22 16:15 Ur Specific [place] 1.033 (1.000-1.030) H 09/18/22 16:15 Urine Protein Negative (Negative) 09/18/22 16:15 Urine Glucose (UA) 3+ (Negative) H 09/18/22 16:15 Urine Ketones Negative (Negative) 09/18/22 16:15 Urine Blood Negative (Negative) 09/18/22 16:15 Urine Nitrite Negative (Negative) 09/18/22 16:15 Urine Bilirubin Negative (Negative) 09/18/22 16:15 Urine Urobilinogen Negative (Negative) 09/18/22 16:15 Ur Leukocyte Esterase Negative (Negative) 09/18/22 16:15 SARS-CoV-2, RNA, NAAT NEGATIVE (NEGATIVE) 09/18/22 20:15 Impressions Chest/Abdomen X-ray 09/18/22 19:11 XR abdomen 2V w PA chest HISTORY: 52 years-old Female epigastric pain . Acute chest and abdominal pain COMPARISON: None TECHNIQUE: PA view the chest with erect and supine views of the abdomen FINDINGS: Cardiomediastinal and hilar silhouettes are within normal limits. No pneumothorax, pleural effusion, airspace consolidation or overt pulmonary edema. Degenerative changes of the shoulders and spine. Mild right hemidiaphragmatic elevation. This body of the left subscapularis recess. No pneumatosis or pneumoperitoneum. Nonobstructive bowel gas pattern. No urolith identified. No acute fracture. Mild to moderate colonic fecal retention. Bilateral hip total joint arthroplasties. IMPRESSION: 1. No acute processes of the chest. 2. Nonobstructive bowel gas pattern. ACT 112: Negative or not required by law. The above report was generated using voice recognition software. It may contain grammatical, syntax or spelling errors. Electronically signed by: Stefan Dominguez M.D. 09/18/2022 8:[address] 09/18/22 19:11 CT head/brain wo con CLINICAL HISTORY: 52 years-old Female with noe. Acute headache with dizziness TECHNIQUE: Multiple axial CT images of the head were obtained without contrast. A dose lowering technique was utilized adhering to the principles of ALARA. CT DOSE: 2456.62 mGy.cm COMPARISON: None. FINDINGS: No acute intracranial hemorrhage, midline shift, intracranial mass, hydrocephalus, territorial ischemia or abnormal extra-axial collection. Mildly motion degraded exam. The calvarium is intact. Prior bilateral lens repair. The paranasal sinuses, mastoid air cells, and middle ear cavities are clear. IMPRESSION: No acute intracranial abnormality. ACT 112: Negative or not required by law. The above report was generated using voice recognition software. It may contain grammatical, syntax or spelling errors. Electronically signed by: Stefan Dominguez M.D. 09/18/2022 8:47 PM Diagnostic Findings Gallbladder ultrasound initial read: No cholelithiasis or associated sonographic findings to suggest acute cholecystitis. No biliary dilatation with the common bile duct measuring 4.6 mm. The liver is hyperechoic in appearance, is borderline enlarged and demonstrates slightlylobular contours anteriorly. Please correlate with clinical historyand laboratoryfindings. The visualized pancreas is unremarkable. No free fluid. The right kidneyis unremarkable CT abdomen pelvis initial read: No evidence for bowel obstruction. Mild mucosal prominence of the decompressed descending and sigmoid colon is presumed related to underdistention. No signific ant diverticulosis or pericolonic inflammatorychanges. No free intraperitoneal fluid or pneumoperitoneum. Incidental normal caliber appendix. The liver is enlarged with lobular contours anteriorly. No focal intrahepatic abnormality. The gallbladder, pancreas, spleen, adrenal glands and kidneys are unremarkable. Evaluation of the bladder is somewhat limited bybilateral total hip arthroplasties. No obvious bladder wall thickening or bladder stones. No significant overlying soft tissue abnormality.
[2022-09-18 23:00] LABS: Magnesium 1.5 mg/dl (1.7-2.4)
[2022-09-18] MEDS ORDERED: FUROSEMIDE INJ 20 MG/2 ML VIAL IV ONE (23:49)
[2022-09-18] MEDS ORDERED: STAT IV STA (23:51)
[2022-09-18] MEDS ORDERED: MODERATE STRESS LEVEL ONE (23:51)
[2022-09-18] MEDS ORDERED: INSULIN PROTOCOL GOAL RANGE ONE (23:51)
[2022-09-18] MEDS ORDERED: oxyCODONE HCL IR 5 MG TAB (IMMEDIATE RELEASE) PO PRN (23:58)
[2022-09-18] MEDS ORDERED: KETOROLAC TROMETHAMINE 15 MG/ML VIAL IV PRN (23:58)
[2022-09-18] MEDS ORDERED: MoRPHine SULFATE 4 MG/ML 1 ML CARP\\VIAL IV PRN (23:58)
[2022-09-18] MEDS ORDERED: PROMETHAZINE HCL 12.5 MG in SODIUM CHLORIDE 0.9% 50 ML IV PRN (23:58)
[2022-09-19] MEDS ORDERED: INSULIN HUMAN REGULAR IV BOLUS 2.5 UNITS in SYRINGE 0 ML IV ONE (00:15)
[2022-09-19] MEDS ORDERED: INSULIN REGULAR 250 UNITS in SODIUM CHLORIDE 0.9% 247.5 ML IV SCH (00:15)
[2022-09-19] MEDS ORDERED: OPTIRAY 350 100ml IV ONE (00:17)
--- NOTE | 2022-09-19 00:30 | Emergency Department Note ---
History of Present Illness General Chief Complaint: Abdominal Pain Stated Complaint: abdominal pain Time Seen by Provider: 09/18/22 19:07 History of Present Illness Provider Complaint: abdominal pain Onset (ago): 1 day(s) Pain Consistency: constant Location: epigastric Severity: severe Maximum Pain Intensity: 9 Current Pain Intensity: 9 Quality: + stabbing and + sharp Relieved By: + eating Exacerbated By: + nothing Context: + history of similar episodes (Feels like previous pancreatitis); no foreign travel, no possible food poisoning, no sick contacts, no recent antibiotic use, no recent surgery/procedure or no recent injury Associated Symptoms: + nausea and + headache; no vomiting, no diarrhea, no fever, no chills, no constipation, no dysuria, no hematemesis, no hematochezia, no melena, no hematuria, no syncope, no neck pain and no chest pain Related Data Patient Confirmed : No Home Medications Medication Instructions Recorded Confirmed Type albuterol sulfate 90 mcg/actuation 2 puff inhalation Q4H PRN 09/18/22 09/18/22 History aerosol inhaler Shortness Of Breath Or Wheezing amitriptyline 100 mg tablet 200 mg PO HS 09/18/22 09/18/22 History cariprazine 1.5 mg capsule 1.5 mg PO QAM 09/18/22 09/18/22 History (Vraylar) fenofibrate nanocrystallized 145 145 mg PO QAM 09/18/22 09/18/22 History mg tablet fluticasone propionate 230 2 puff inhalation AMPM 09/18/22 09/18/22 History mcg-salmeterol 21 mcg/actuation HFA inhaler (Advair HFA) fremanezumab-vfrm 225 mg/1.5 mL 225 mg subcut Q3M 09/18/22 09/18/22 History subcutaneous syringe (Ajovy Syringe) insulin aspart U-100 100 unit/mL 44 unit subcut TIDM 09/18/22 09/18/22 History (3 mL) subcutaneous pen (Novolog Flexpen U-100 Insulin aspart) insulin glargine 100 unit/mL (3 74 unit subcut QAM 09/18/22 09/18/22 History mL) subcutaneous pen (Basaglar KwikPen U-100 Insulin) magnesium oxide 400 mg (241.3 mg 400 mg PO QAM 09/18/22 09/18/22 History magnesium) tablet nabumetone 500 mg tablet 500 mg PO .AM&HS 09/18/22 09/18/22 History pregabalin 150 mg capsule 150 mg PO .AM& HS 09/18/22 09/18/22 History riboflavin (vitamin B2) 400 mg 400 mg PO QAM 09/18/22 09/18/22 History tablet rizatriptan 10 mg tablet 10 mg PO .DAILY/UD PRN Migraine 09/18/22 09/18/22 History Headache simvastatin 40 mg tablet 40 mg PO QPM 09/18/22 09/18/22 History valacyclovir 1 gram tablet 1,000 mg PO QAM 09/18/22 09/18/22 History Allergies Allergy/AdvReac Type Severity Reaction Status Date / Time cephalexin [From Keflex] Allergy Unknown Unverified 09/18/22 22:41 duloxetine [From Cymbalta] Allergy Unknown Unverified 09/18/22 22:41 Sulfa (Sulfonamide Allergy Unknown Unverified 09/18/22 22:43 Antibiotics) Past Med/Surg History Medical History HLD (hyperlipidemia) IDDM (insulin dependent diabetes mellitus) No pertinent family history Surgical History No pertinent past surgical history Social History Smoking Status: Current every day smoker Feels Safe at Home: Yes Review of Systems A total of 10 systems reviewed and were otherwise negative Physical Exam Vital Signs: Vital Signs - 24 hr 09/18/22 15:14 09/18/22 19:24 09/18/22 21:19 Temperature 36.5 C Temperature Source Temporal Artery Sc an Pulse Rate 107 H Pulse Rate [Right Finger] 106 H 96 H Pulse Rhythm [Righ t Finger] Pulse Strength [Ri ght Finger] Respiratory Rate 20 Respiratory Effort / Characteristics Non-Labored Respiratory Depth Normal Respiratory Patter n Blood Pressure 149/90 H Blood Pressure [Le ft Arm] 125/64 Blood Pressure Claudia n 109 Blood Pressure Claudia n [Left Arm] 84 Pulse Oximetry 92 98 100 Oxygen Delivery Me thod Room Air Room Air Room Air Sepsis Recent Feve r Within 48 Hours No Sepsis New/Unexpla ined Change in Men sami Status N/A Sepsis Action Take n by Nursing No Action Required 09/18/22 23:00 Temperature Temperature Source Pulse Rate Pulse Rate [Right Finger] 64 Pulse Rhythm [Righ t Finger] Regular Pulse Strength [Ri ght Finger] Normal Respiratory Rate 20 Respiratory Effort / Characteristics Non-Labored Sponta neous Respiratory Depth Normal Respiratory Patter n Regular Blood Pressure Blood Pressure [Le ft Arm] 125/61 Blood Pressure Claudia n Blood Pressure Claudia n [Left Arm] 82 Pulse Oximetry 98 Oxygen Delivery Me thod Room Air Sepsis Recent Feve r Within 48 Hours Sepsis New/Unexpla ined Change in Men sami Status Sepsis Action Take n by Nursing Physical Exam: Physical Exam GENERAL: She is oriented to person, place, and time. She appears well-developed and well-nourished. She does not appear distressed. HENT: Exam performed. -Head: Normocephalic and atraumatic. -Right Ear: External ear normal. No mastoid tenderness. -Left Ear: External ear normal. No mastoid tenderness. -Mouth/Throat: The oropharynx is clear and moist. No trismus in the jaw. No dental abscesses or uvula swelling. No oropharyngeal exudate or tonsillar abscesses. EYES: Conjunctivae and EOM are normal. Pupils are equal, round, and reactive to light. Right eye exhibits no discharge. Left eye exhibits no discharge. No scleral icterus. NECK: Normal range of motion. Neck supple. No JVD present. No spinous process tenderness present. No carotid bruit present. No rigidity. No tracheal deviation and normal range of motion present. No Brudzinski's sign and no Kernig's sign noted. CV: Normal rate, regular rhythm, normal heart sounds and intact distal pulses. There is no peripheral edema. Palpable radial pulses bue. PULM/CHEST: Effort normal and breath sounds normal. No respiratory distress. No stridor. She has no wheezes. She has no rales. -Chest Wall: She exhibits no tenderness. ABD: The abdomen is soft. Bowel sounds are normal. She has no distension. No mass is present. There is tenderness to palpation of the epigastric area. There is no rebound, no guarding, no Alvarado's sign and no tenderness at McBurney's point. Rovsig negative MUSC/SKEL: Normal range of motion. There is no peripheral edema, tenderness or deformity. LYMPH: No cervical adenopathy. NEURO: She is alert and oriented to person, place, and time. She has normal strength. No cranial nerve deficit or sensory deficit. Coordination and gait normal. GCS eye subscore is 4. GCS verbal subscore is 5. GCS motor subscore is 6. Cerebellar tests wnl. SKIN: Skin is warm and dry. She is not diaphoretic. PSYCH: She has a normal mood and affect. Behavior is normal. Judgment and thought content normal. Course Course 1906: The patient was evaluated in room A11A. A complete history and physical exam was performed Cardiac monitoring: An order was placed for continuous cardiac monitoring. The monitor shows a rate of 60 with sinus rhythm 2150: Vital signs stable. Labs show a lipase of 274 AST 95 ALT 113 alkaline phosphatase 159. Ultrasound of the right upper quadrant and x-ray of the abdomen are negative. CT of the head within normal limits. Patient will be admitted to the [facility] team for pancreatitis. Dr. Carrera team notified. Administered Medications Discontinued Medications Diphenhydramine HCl (Diphenhydramine 50 Mg/Ml Vial) 25 mg IV NOW STA Stop: 09/18/22 19:13 Last Admin: 09/18/22 19:18 Dose: 25 mg Documented By: MES Sodium Chloride (Nss 1000ml) 1,000 mls @ 999 mls/hr IV .Q1H1M ONE Stop: 09/18/22 20:12 Last Infusion: 09/18/22 20:22 Dose: 0 mls/hr Documented By: Admin: 09/18/22 19:21 Dose: 999 mls/hr Documented By: MES Sodium Chloride (Nss 1000ml) 1,000 mls @ 999 mls/hr IV .Q1H1M ONE Stop: 09/18/22 22:44 Last Infusion: 09/18/22 23:14 Dose: 0 mls/hr Documented By: Admin: 09/18/22 21:59 Dose: 999 mls/hr Documented By: ARIANNA Ioversol (Optiray 350 100ml) 100 ml IV ONCE ONE Stop: 09/19/22 00:18 Last Admin: 09/19/22 00:18 Dose: 88 ml Documented By: TONY Ketorolac Tromethamine (Ketorolac Tromethamine 15 Mg/Ml Vial) 15 mg IV NOW STA Stop: 09/18/22 19:13 Last Admin: 09/18/22 19:17 Dose: 15 mg Documented By: ARIANNA Metoclopramide HCl (Metoclopramide Hcl Inj 5 Mg/Ml 2 Ml Vial) 5 mg IV ONE ONE Stop: 09/18/22 19:13 Last Admin: 09/18/22 19:19 Dose: 5 mg Documented By: ARIANNA Morphine Sulfate (Morphine Sulfate 4 Mg/Ml 1 Ml Carp\Vial) 4 mg IV NOW STA Stop: 09/18/22 21:45 Last Admin: 09/18/22 21:54 Dose: 4 mg Documented By: ARIANNA Ondansetron HCl (Ondansetron Inj 2 Mg/Ml 2 Ml Vial) 4 mg IV NOW STA Stop: 09/18/22 21:45 Last Admin: 09/18/22 21:54 Dose: 4 mg Documented By: ARIANNA Medical Decision Making Laboratory Data Result diagrams: 09/18/22 16:15 09/18/22 16:15 Lab Results 09/18/22 09/18/22 09/18/22 Range/Units 16:15 16:15 16:15 WBC 9.01 (4.8-10.8) K/ul RBC 5.10 (3.93-5.22) M/uL Hgb 15.1 (12.0-16.0) g/dl Hct 44.9 (34.1-44.9) % MCV 88.0 (80.0-100.0) fL MCH 29.6 (25.0-34.0) pg MCHC 33.6 (32.0-36.0) g/dL RDW Std Deviation 44.8 (36.4-46.3) fL RDW Coeff of Javier 14.1 (11.5-14.5) % Plt Count 211 (130-400) K/uL MPV 10.5 (9.4-12.3) fL Immature Gran % (Auto) 0.6 % Neut % (Auto) 59.7 % Lymph % (Auto) 30.3 % Elmore % (Auto) 5.2 % Eos % (Auto) 3.1 % Baso % (Auto) 1.1 % Neut # (Auto) 5.38 (1.4-6.5) K/uL Lymph # (Auto) 2.73 (1.2-3.4) K/uL [place]more # (Auto) 0.47 (0.24-0.82) K/uL Eos # (Auto) 0.28 (0-0.50) K/uL Baso # (Auto) 0.10 (0-0.2) K/uL Immature Gran # (Auto) 0.05 H (0.00-0.02) K/uL Sodium 134 L (136-145) mmol/L Potassium 4.3 (3.5-5.1) mmol/L Chloride 99 (98-107) mmol/L Carbon Dioxide 24 (21-32) mmol/L Anion Gap 11 (3-11) BUN 14 (6-23) mg/dl Creatinine 0.85 (0.6-1.2) mg/dl Est Cr Clr Drug Dosing 87.7 ml/min Est GFR ( Amer) 90.0 ml/min Est GFR (Non-Af Amer) 77.7 ml/min BUN/Creatinine Ratio 16.5 (10-20) Glucose 377 H* (70-99(Fasting)) mg/dl Calcium 9.4 (8.5-10.1) mg/dl Magnesium (1.7-2.4) mg/dl Total Bilirubin 0.5 (0.2-1.0) mg/dl AST 95 H (13-39) U/L ALT 113 H (7-52) U/L Alkaline Phosphatase 159 H (34-104) U/L Total Protein 7.2 (6.0-8.3) gm/dl Albumin 4.1 (3.4-5.0) gm/dl Globulin 3.1 (2.5-4.0) gm/dl Albumin/Globulin Ratio 1.3 (0.9-2) Triglycerides (0-150) mg/dl Lipase 274 H (11-82) U/L Urine Color Yellow Urine Appearance Clear (Clear) Urine pH 5.5 (4.5-7.5) Ur Specific [place] 1.033 H (1.000-1.030) Urine Protein Negative (Negative) Urine Glucose (UA) 3+ H (Negative) Urine Ketones Negative (Negative) Urine Blood Negative (Negative) Urine Nitrite Negative (Negative) Urine Bilirubin Negative (Negative) Urine Urobilinogen Negative (Negative) Ur Leukocyte Esterase Negative (Negative) SARS-CoV-2, RNA, NAAT (NEGATIVE) 09/18/22 09/18/22 Range/Units 16:15 20:15 WBC (4.8-10.8) K/ul RBC (3.93-5.22) M/uL Hgb (12.0-16.0) g/dl Hct (34.1-44.9) % MCV (80.0-100.0) fL MCH (25.0-34.0) pg MCHC (32.0-36.0) g/dL RDW Std Deviation (36.4-46.3) fL RDW Coeff of Javier (11.5-14.5) % Plt Count (130-400) K/uL MPV (9.4-12.3) fL Immature Gran % (Auto) % Neut % (Auto) % Lymph % (Auto) % [place] % (Auto) % Eos % (Auto) % Baso % (Auto) % Neut # (Auto) (1.4-6.5) K/uL Lymph # (Auto) (1.2-3.4) K/uL [place] # (Auto) (0.24-0.82) K/uL Eos # (Auto) (0-0.50) K/uL Baso # (Auto) (0-0.2) K/uL Immature Gran # (Auto) (0.00-0.02) K/uL Sodium (136-145) mmol/L Potassium (3.5-5.1) mmol/L Chloride (98-107) mmol/L Carbon Dioxide (21-32) mmol/L Anion Gap (3-11) BUN (6-23) mg/dl Creatinine (0.6-1.2) mg/dl Est Cr Clr Drug Dosing ml/min Est GFR ( Amer) ml/min Est GFR (Non-Af Amer) ml/min BUN/Creatinine Ratio (10-20) Glucose (70-99(Fasting)) mg/dl Calcium (8.5-10.1) mg/dl Magnesium 1.5 L (1.7-2.4) mg/dl Total Bilirubin (0.2-1.0) mg/dl AST (13-39) U/L ALT (7-52) U/L Alkaline Phosphatase (34-104) U/L Total Protein (6.0-8.3) gm/dl Albumin (3.4-5.0) gm/dl Globulin (2.5-4.0) gm/dl Albumin/Globulin Ratio (0.9-2) Triglycerides 768 H (0-150) mg/dl Lipase (11-82) U/L Urine Color Urine Appearance (Clear) Urine pH (4.5-7.5) Ur Specific [place] (1.000-1.030) Urine Protein (Negative) Urine Glucose (UA) (Negative) Urine Ketones (Negative) Urine Blood (Negative) Urine Nitrite (Negative) Urine Bilirubin (Negative) Urine Urobilinogen (Negative) Ur Leukocyte Esterase (Negative) SARS-CoV-2, RNA, NAAT NEGATIVE (NEGATIVE) Imaging Data Radiologist's Impression: Chest/Abdomen X-ray 09/18/22 19:11 XR abdomen 2V w PA chest HISTORY: 52 years-old Female epigastric pain . Acute chest and abdominal pain COMPARISON: None TECHNIQUE: PA view the chest with erect and supine views of the abdomen FINDINGS: Cardiomediastinal and hilar silhouettes are within normal limits. No pneumothorax, pleural effusion, airspace consolidation or overt pulmonary edema. Degenerative changes of the shoulders and spine. Mild right hemidiaphragmatic elevation. This body of the left subscapularis recess. No pneumatosis or pneumoperitoneum. Nonobstructive bowel gas pattern. No urolith identified. No acute fracture. Mild to moderate colonic fecal retention. Don ateral hip total joint arthroplasties. IMPRESSION: 1. No acute processes of the chest. 2. Nonobstructive bowel gas pattern. ACT 112: Negative or not required by law. The above report was generated using voice recognition software. It may contain grammatical, syntax or spelling errors. Electronically signed by: Stefan Dominguez M.D. 09/18/2022 8:[address] 09/18/22 19:11 CT head/brain wo con CLINICAL HISTORY: 52 years-old Female with noe. Acute headache with dizziness TECHNIQUE: Multiple axial CT images of the head were obtained without contrast. A dose lowering technique was utilized adhering to the principles of ALARA. CT DOSE: 2456.62 mGy.cm COMPARISON: None. FINDINGS: No acute intracranial hemorrhage, midline shift, intracranial mass, hydrocephalus, territorial ischemia or abnormal extra-axial collection. Mildly motion degraded exam. The calvarium is intact. Prior bilateral lens repair. The paranasal sinuses, mastoid air cells, and middle ear cavities are clear. IMPRESSION: No acute intracranial abnormality. ACT 112: Negative or not required by law. The above report was generated using voice recognition software. It may contain grammatical, syntax or spelling errors. Electronically signed by: Stefan Dominguez M.D. 09/18/2022 8:47 PM PreliminaryFindingsOnly See Final Report For Complete Findings US GALLBLADDER: No cholelithiasis or associated sonographic findings to suggest acute cholecystitis. No biliary dilatation with the common bile duct measuring 4.6 mm. The liver is hyperechoic in appearance, is borderline enlarged and demonstrates slightlylobular contours anteriorly. Please correlate with clinical historyand laboratoryfindings. The visualized pancreas is unremarkable. No free fluid. The right kidneyis unremarkable. Radiologist: José Acevedo MD Study ready at 21:25 and initial results transmitted at 21:29 MDM Narrative Vital signs stable. Labs show a lipase of 274 AST 95 ALT 113 alkaline phosphatase 159. Ultrasound of the right upper quadrant and x-ray of the a bdomen are negative. CT of the head within normal limits. [facility] Car[facility] team notified. Impression & Plan Pancreatitis Discharge Plan Visit Data Chief Complaint: Abdominal Pain Stated Complaint: abdominal pain ED Provider: Satish Sidhu Discharge Problem: Pancreatitis Patient Disposition: Admitted As Inpatient Forms Stand Alone Forms: [facility] Prescriptions Prescriptions: No Action Ajovy Syringe 225 mg/1.5 mL syringe 225 mg SUBCUT Q3M Vraylar 1.5 mg capsule 1.5 mg PO QAM nabumetone 500 mg tablet 500 mg PO .AM&HS insulin aspart U-100 [Novolog Flexpen U-100 Insulin] 100 unit/mL (3 mL) insulin pen 44 unit SUBCUT TIDM insulin glargine [Basaglar KwikPen U-100 Insulin] 100 unit/mL (3 mL) insulin pen 74 unit SUBCUT QAM amitriptyline 100 mg tablet 200 mg PO HS valacyclovir 1 gram tablet 1,000 mg PO QAM Advair HFA 230-21 mcg/actuation HFA aerosol inhaler 2 puff INHALATION AMPM albuterol sulfate 90 mcg/actuation HFA aerosol inhaler 2 puff INHALATION Q4H PRN (Reason: Shortness Of Breath Or Wheezing) pregabalin 150 mg capsule 150 mg PO .AM& HS fenofibrate nanocrystallized 145 mg tablet 145 mg PO QAM magnesium oxide 400 mg (241.3 mg magnesium) tablet 400 mg PO QAM riboflavin (vitamin B2) 400 mg Tablet 400 mg PO QAM rizatriptan 10 mg tablet 10 mg PO .DAILY/UD MDD two doses PRN (Reason: Migraine Headache) Rx Instructions: take one tablet at onset of migraine,may repeat in 2 hours simvastatin 40 mg tablet 40 mg PO QPM Referrals Referrals: PCP,NO [Primary Care Provider] -
[2022-09-19] MEDS: MAGNESIUM SULFATE / D5W 1 GM/100 ML BAG IV SCH ×2 (00:39→02:24)
[2022-09-19] MEDS ORDERED: MELATONIN 3 MG TAB PO STA (02:19)
[2022-09-19] MEDS ORDERED: MELATONIN 3 MG TAB PO PRN (02:20)
[2022-09-19] MEDS ORDERED: PROMETHAZINE 12.5 MG/50.5 ML NSS IV ONE (02:30)
[2022-09-19] MEDS ORDERED: D5W AND LACTATED RINGERS 1,000 ML IV PRN (02:30)
[2022-09-19] MEDS ORDERED: ACETAMINOPHEN 500 MG TAB PO PRN (04:22)
--- NOTE | 2022-09-19 04:59 | Communication Note ---
Date of Service: September 19, 2022 4:45 AM Made aware by RN of patient request to leave hospital to AGAINST MEDICAL ADVICE. Patient worried about her dog. Patient intent on departing hospital AGAINST MEDICAL ADVICE despite explanations provided and citation of risks/possible consequences arising from decision to leave AMA which include hospital bill/medical insurance implications and as an extreme end result. Patient signed AMA form.
--- NOTE | 2022-09-19 07:09 | Ultrasound Report ---
US gallbladder CLINICAL HISTORY: ruq pain TECHNIQUE: Multiple real-time sonographic images of the right upper quadrant were obtained. Comparison: None available at the time of this dictation. FINDINGS: The liver is diffusely coarsened in echotexture, with a nodular contour. The liver appears enlarged i n appearance. These findings are suggestive of steatosis with possible cirrhosis. No focal mass lesi ons are seen. No intrahepatic ductal dilatation is seen. No gallstones or sludge are identified w ithin the gallbladder. The gallbladder wall is not thickened. There is no pericholecystic fluid prese nt. A sonographic Alvarado's sign was not elicited by the complaints coordinator. The common duct measures 0.5 c m in diameter at the level of the hepatic artery. The visualized portions of the pancreas appear nor mal. The right kidney shows normal echogenicity, cortical thickness and renal contour. The right kidney sh ows no evidence of hydronephrosis or mass. No ascites or free fluid is seen in Acuña's pouch. IMPRESSION: 1. No acute abnormalities and in particular no evidence of acute cholecystitis. 2. Steatosis and possible cirrhosis. ACT 112: Negative or not required by law. Electronically signed by: Erick Hernandez M.D. 09/19/2022 7:08 AM
[2022-09-19] MEDS ORDERED: INSULIN ASPART PER UNIT SC SCH (07:30)
[2022-09-19] MEDS ORDERED: ENOXAPARIN INJ 40 MG/0.4 ML SYR SQ SCH (09:00)
[2022-09-19] MEDS ORDERED: FENOFIBRATE NANOCRYSTALLIZED 145 MG TABLET PO SCH (09:00)
[2022-09-19] MEDS ORDERED: PREGABALIN 150 MG CAP PO SCH (09:00)
[2022-09-19] MEDS ORDERED: FLUTICASONE/VILANTEROL 100/25MCG 14 PUFFS/INHALER INH SCH (09:00)
[2022-09-19] MEDS ORDERED: valACYclovir HCL 500 MG TABLET PO SCH (09:00)
--- NOTE | 2022-09-19 09:51 | CT Scan Report ---
CT abd pelvis IV con only CLINICAL HISTORY: abd pain, diarrhea TECHNIQUE: Helical axial images of the abdomen and pelvis were obtained and displayed. Automated dose lowering techniques and/or adjustment according to patient size were utilized for this exam. This e xam was performed with intravenous contrast. CT DOSE: 884.98 mGy.cm COMPARISON: Comparison is made to CT abdomen pelvis 03/18/2022 FINDINGS: Lower chest: No acute abnormality. Liver: Nodular contour of the liver is seen compatible with cirrhosis. Hepatic steatosis is seen. Gallbladder and biliary tree: No calcified gallstones. Normal caliber wall. No intra- or extrahepatic biliary ductal dilation. Pancreas: Unremarkable, no focal lesions. Spleen: Splenule is incidentally noted. Adrenals: Unremarkable. Kidneys and ureters: Unremarkable. Bladder: Unremarkable. Reproductive organs: Unremarkable. Bowel: Diverticulosis is seen without evidence of diverticulitis. The appendix is normal. Lymph nodes Retroperitoneal: Unremarkable. Pelvic: Unremarkable. Mesenteric: Unremarkable. Peritoneum: Normal. Vessels: Unremarkable. Abdominal wall: Unremarkable. Bones: Bilateral hip arthroplasties are seen. IMPRESSION: There is apparent steatosis and nodular contour of liver is concerning for cirrhosis. No bowel abnorm alities are seen. ACT 112: Negative or not required by law. Electronically signed by: Erick Hernandez M.D. 09/19/2022 9:49 AM
--- NOTE | 2022-09-19 11:02 | Discharge Summary ---
Date of Service September 19, 2022 Admission HPI Per Admitting Provider History obtained from patient and records. Medical history significant for hypertension, hyperlipidemia, cirrhosis, past history of pancreatitis, anxiety/mood disorder/borderline personality disorder, migraine, DM 2 insulin requiring, hypothyroidism (currently not on medications), asthma/COPD as per patient, drug-seeking behavior as per records, ongoing tobacco abuse. Patient confined last January 2022 for acute pancreatitis possibly secondary to hypertriglyceridemia or Trulicity. Last confinement March 2022 for hyperglycemic crisis. Few days history of upper achy abdominal pain pain associated with watery d iarrhea and dry heaving symptoms. Levaquin Rx about 2 months ago for sinus infection. No chest pain, no shortness of breath. Upper arms retaining fluid as per patient. Usual migraine headache. No recent EtOH intake. No fever, no chills. Patient consulted ER for worsening symptoms. Medical Historyas above Surgical History : BTL, hip replacement, breast reduction Family History : Cirrhosis, disorder, DM Personal/Social history : 1 pack daily, occasional EtOH intake, disabled, lives with dog Principal Diagnosis Recurrent Pancreatitis Discharge Data Allergies Allergy/AdvReac Type Severity Reaction Status Date / Time cephalexin [From Keflex] Allergy Severe Vomiting/HI Verified 09/19/22 07:50 VES Sulfa (Sulfonamide Allergy Severe VOMITING/HI Verified 09/19/22 07:50 Antibiotics) VES duloxetine [From Cymbalta] Allergy Unknown Unverified 09/19/22 07:50 Consultations 09/18/22 21:53 ED Decision to Admit Stat Ordered Studies 09/18/22 19:11 CT head/brain wo con Stat US gallbladder Urgent 09/18/22 23:50 CT Abd and Pelvis [CT abd pelvis IV con only] Stat Hospital Course (1) Abdominal pain: Multifactorial : Recurrent pancreatitis, ? Secondary to hypertriglyceridemia Transaminitis Possible colitis rule out C. difficile, recent antibiotic Rx hypertension, stable hyperlipidemia on statin Rx NAFLD cirrhosis, some signs of fluid retention anxiety/mood disorder/borderline personality disorder, at baseline migraine headache at baseline DM 2 insulin requiring, suboptimal control as of recent hemoglobin A1c of 13.3 last July 2022 hypothyroidism (currently not on medications), TSH slightly elevated at 5.1 July 2022 asthma/COPD as per patient, symptoms at baseline drug-seeking behavior as per records ongoing tobacco abuse. GMF Analgesia, bowel rest Judicious narcotic use given history of drug-seeking behavior IV insulin for now for uncontrolled sugars and hypertriglyceridemia Stool C. difficile GI consult Re: Pancreatitis, hepatitis Trend LFTs, hold statin for now Pharmacy glycemic control consult Nicotine patch as needed DVT prophylaxis. Lovenox subcu Full code (Preceding documentation as per admitting provider.) 09/19/2022 4:45 AM Made aware by RN of patient request to leave hospital to AGAINST MEDICAL ADVICE. Patient worried about her dog. Patient intent on departing hospital AGAINST MEDICAL ADVICE despite explanations provided and citation of risks/possible consequences arising from decision to leave AMA which include hospital bill/medical insurance implications for worsening pancreatitis, and as an extreme end result. Patient signed AMA form. Total time to prepare this discharge summary was less than 10 minutes. Text document was generated using Turn voice recognition software. It may contain grammatical or spelling errors. Kindly contact undersigned for clarification of any documentation item in question. Total Time Total Time Spent Total Time Spent (In Minutes): 10 Discharge Plan Discharge Items Patient Disposition: Against Medical Advice Reason For Visit: PANCREATITIS Activity: Resume your previous activity Non-emergency contact: Primary Care Provider Follow-up/Referrals: PCP,NO [Primary Care Provider] - Diet Comment: clear liquids. Pending Studies at Discharge: No Stand-Alone Forms: My [employer], Smoking Cessation Medications and DC Order Prescriptions: No Action rizatriptan 10 mg tablet 10 mg PO DIRECTED PRN (Reason: Migraine Headache) simvastatin 40 mg tablet 40 mg PO QPM insulin aspart U-100 [Novolog Flexpen U-100 Insulin] 100 unit/mL (3 mL) insulin pen 42 unit SUBCUT TID pregabalin 150 mg capsule 150 mg PO BID Advair HFA 230-21 mcg/actuation HFA aerosol inhaler 2 puff INHALATION BID insulin glargine [Basaglar KwikPen U-100 Insulin] 100 unit/mL (3 mL) insulin pen 100 unit SUBCUT QAM Ajovy Syringe 225 mg/1.5 mL syringe 0 mg SUBCUT DIRECTED Rx Instructions: PER PT "HAD SHOT IN JUL, 2022". amitriptyline 100 mg tablet 200 mg PO HS magnesium oxide 400 mg magnesium Capsule 400 mg PO DAILY (DME) pen needle,diabetic, disp unit 32 gauge x 5/32" needle See Rx Instructions .Route Qty: 100 0RF Rx Instructions: As directed (DME) OneTouch Verio test strips Strip See Rx Instructions .Route Qty: 100 0RF Rx Instructions: As directed (DME) lancets [OneTouch Delica Lancets] 30 gauge misc See Rx Instructions .Route Qty: 100 0RF Rx Instructions: As directed Ajovy Syringe 225 mg/1.5 mL syringe 225 mg SUBCUT Q3M Vraylar 1.5 mg capsule 1.5 mg PO QAM nabumetone 500 mg tablet 500 mg PO .AM&HS insulin aspart U-100 [Novolog Flexpen U-100 Insulin] 100 unit/mL (3 mL) insulin pen 44 unit SUBCUT TIDM insulin glargine [Basaglar KwikPen U-100 Insulin] 100 unit/mL (3 mL) insulin pen 74 unit SUBCUT QAM amitriptyline 100 mg tablet 200 mg PO HS valacyclovir 1 gram tablet 1,000 mg PO QAM Advair HFA 230-21 mcg/actuation HFA aerosol inhaler 2 puff INHALATION AMPM albuterol sulfate 90 mcg/actuation HFA aerosol inhaler 2 puff INHALATION Q4H PRN (Reason: Shortness Of Breath Or Wheezing) pregabalin 150 mg capsule 150 mg PO .AM& HS fenofibrate nanocrystallized 145 mg tablet 145 mg PO QAM magnesium oxide 400 mg (241.3 mg magnesium) tablet 400 mg PO QAM riboflavin (vitamin B2) 400 mg Tablet 400 mg PO QAM rizatriptan 10 mg tablet 10 mg PO .DAILY/UD MDD two doses PRN (Reason: Migraine Headache) Rx Instructions: take one tablet at onset of migraine,may repeat in 2 hours simvastatin 40 mg tablet 40 mg PO QPM Discharge Orders: Left Against Medical Advice (Routine); Ordered 09/19/22 Ordered By: Albert Miller Admission Data Admit Date/Time: 09/18/22 23:56 Attending Provider: Kiet Price Admit Provider: Albert Miller Primary Care Provider: PCP,NO Other Providers: Albert Miller
[2022-09-19] MEDS ORDERED: SIMVASTATIN 40 MG TAB PO SCH (21:00)
[2022-09-19] MEDS ORDERED: AMITRIPTYLINE HCL 100 MG TAB PO SCH (21:00)
== END 2022-09-19 05:08 | disposition left against medical advice (07) ==
LOC: ED 14:57 → INTOOBSV 23:56 → EDINP 23:56 → MERGE 23:56 → EDINP 09-19 04:23

== ENCOUNTER 2025-05-14 20:41 | Inpatient (IN) ==
[2025-05-14 20:56] VITALS: RESP 18; TEMP 99.1
[2025-05-14] MEDS: ACETAMINOPHEN 1,000 MG/100 ML VIAL IV STA (21:25)
[2025-05-14] MEDS: SODIUM CHLORIDE 0.9% 2,000 ML IV ONE (21:29)
[2025-05-14 21:31] LABS: Base Excess VBG -2.2 mEq/L; HCO3 VBG 22 mmol/L; Oxygen Saturation VBG 82.8 %; PCO2 VBG 37 mmHg (38-50); PO2 VBG 44 mmHg; pH VBG 7.39 (7.36-7.41)
[2025-05-14] MEDS: KETOROLAC TROMETHAMINE 15 MG/ML VIAL IV STA (21:31)
[2025-05-14] MEDS: ONDANSETRON INJ 2 MG/ML 2 ML VIAL IV STA (21:33)
[2025-05-14] MEDS: PROCHLORPERAZINE 1 ML IV ONE (21:34)
[2025-05-14] MEDS: diphenhydrAMINE 50 MG/ML VIAL IV STA (21:34)
[2025-05-14 21:35] LABS: Hematocrit (blood only) 45.1 % (37.0-47.0); Hemoglobin 15.6 g/dl (12.0-16.0); Immature Granulocytes # (auto) 0.03 K/uL (0.01-0.20); Immature Granulocytes % (auto) 0.4 %; Mean Corpuscular Hemoglobin 30.4 pg (25.0-34.0); Mean Corpuscular Volume 87.7 fL (80.0-100.0); Platelet Count 228 K/uL (130-400); RDW Standard Deviation 41.1 fL (36.4-46.3); Red Blood Count 5.14 M/uL (4.20-5.40); White Blood Count 6.80 K/ul (4.8-10.8)
[2025-05-14 21:38] LABS: Alanine Aminotransferase 70.0 U/L (7-52); Albumin Globulin Ratio 1.2 (0.9-2); Alkaline Phosphatase 156.0 U/L (34-104); Anion Gap 11.0 (3-11); Bilirubin,Total 0.5 mg/dl (0.2-1.0); Blood Urea Nitrogen 24.0 mg/dl (6-23); Calcium 9.1 mg/dl (8.6-10.3); Carbon Dioxide 23.0 mmol/L (21-32); Chloride 91.0 mmol/L (98-107); Creatinine Clr Calc Pharmacy 63.8 ml/min; Globulin 3.2 gm/dl (2.5-4.0); Glucose 746.0 mg/dl (70-99(Fasting)); Magnesium 1.7 mg/dl (1.7-2.4); Potassium 5.1 mmol/L (3.5-5.1); Sodium 125.0 mmol/L (136-145); Total Protein 7.1 gm/dl (6.0-8.3)
[2025-05-14 21:46] LABS: INR 1.0 (0.9-1.1); Partial Thromboplastin Time 28 Seconds (21-31); Prothrombin Time 11.2 Seconds (9.0-12.0)
--- NOTE | 2025-05-14 22:09 | Emergency Department Note ---
Impression & Plan Migraine, Hyperglycemia ED Provider Note HISTORY OF PRESENT ILLNESS: Patient is a 55 year old female presenting with migraine headache. Patient reports she has a had a continuous migraine headache for the past 2 weeks. She reports she took "meds at home" with little relief in her symptoms - she states the medications are Ubrevly and Nurtec. She states she took "2 pills of prednisone today" at the recommendation of her neurologist. She reports she hasn't presented sooner for her headache because "I have dogs at home I couldn't leave." Denies any fevers. Reports nausea and vomiting secondary to her headache. Denies any numbness, tingling or weakness in extremities. Denies any changes in vision. Denies any recent head injury or chiropractic manipulation of her neck. Denies chest pain or shortness of breath. She states she is also having "neuropathy in my legs that won't go away." ROS: as above PHYSICAL EXAM: Constitutional: Patient appears in no acute distress. HENT: Head: Normocephalic and atraumatic. Eyes: EOMI, PERRL Mouth/Throat: Mucous membranes moist. Neck: Trachea midline. Neck supple. Cardiovascular: RRR, No murmurs, rubs or gallops. Intact distal pulses. Pulmonary/Chest: No respiratory distress. Breath sounds clear and equal bilaterally. No wheezes or rales. Abdominal: Abdomen soft, no tenderness, rebound or guarding. Musculoskeletal: No edema, tenderness or deformity noted. Skin: Warm and dry. No rash, erythema, pallor or cyanosis Psychiatric: Appropriate mood and affect for situation. Neurological: Alert and keenly responsive. CN II-XII grossly intact, moving all extremities equally and fully. MDM: - Vitals signs showed hypertension and tachycardia. - History obtained via patient. History as above. - Chronic conditions affecting care: none - Differential diagnoses include, but are not limited to: DKA; electrolyte abnormality; CVA; intracranial hemorrhage; dehydration; primary headache - Order placed for continuous cardiac monitoring. At this time, monitor showed rate of 110 bpm with normal sinus rhythm, per my interpretation. - External medical records reviewed. Discharge summary dated 04/23/2025 was reviewed. Patient was admitted to the hospital for chest pain and an elevated troponin level. - Laboratory workup interpreted by myself showed normal WBC; hyponatremia (Na 125 - likely pseudohyponatremia in setting of hyperglycemia); hyperglycemia (glucose 746); transaminitis (AST 66; ALT 70) - VBG negative for acidosis - CT head wo contrast negative for acute pathology - CT cervical spine wo contrast negative for acute pathology. Noted to have an incidental finding of a cystic structure that appears to be an incidental thyroglossal duct cyst. - Patient given 2L NS. Initially ordered 1g IV tylenol, but she declined and said she wanted toradol and ativan. Given 15 mg IV toradol and 4 mg IV zofran. Given 5 mg IV compazine and 25 mg IV benadryl - Given 5 units insulin - Patient still complaining of headache and still notably tachycardic. - Fingerstick glucose still >600. Started on insulin drip. Will admit to hospitalist service for further hyperglycemia treatment - Discussed case with rn case management for admission - Hospitalist, Dr. Trinidad, consulted for admission - Patient to be admitted to inpatient [facility] hospitalist service for further evaluation and management. I have personally spent 36 minutes of critical care time in the direct management of this patient. This includes bedside care, interpretation of diagnostic studies, and testing, discussion with consultants, patient, and family members, and other required patient management activities. This 36 minutes is in excess of all separately billable procedures. ASSESSMENT AND PLAN: Diagnosis: migraine; hyperglycemia Plan: admit Past Med/Surg History Problem List (Updated 05/14/25 @ 22:27 by Vero Palacios MD) Hyperglycemia (Acute) Migraine (Acute) Mitral regurgitation NSTEMI (non-ST elevated myocardial infarction) (Acute) Drug-seeking behavior (Acute) Dysesthesia Loss of protective sensation of skin of foot Diabetic peripheral neuropathy associated with type 2 diabetes mellitus HLD (hyperlipidemia) Anxiety (Acute) Fatty liver HLD (hyperlipidemia) Medical History History of pancreatitis Elevated LFTs Tobacco abuse Hypothyroidism Hx of migraines Surgical History History of bilateral hip arthroplasty History of reduction mammoplasty Family History Mother CAMPUZANO (nonalcoholic steatohepatitis) Father Bipolar disorder Social History Smoking Status: Current every day smoker Tobacco Type: Cigarettes packs per day: 1; Cigarettes Per Day: 1/2 ppd; Second Hand Exposure: No; Do You Dip or Chew Tobacco: No; Hx Alcohol Use: Yes Preferred Language: Icelandic Communication Ability: Effective Academic Adviser Required: No Beliefs That Will Affect Care: None marital status: Single Current Living Situation: Alone Feels Safe at Home: Yes Assistive Devices: None Allergies Allergies Allergy/AdvReac Type Severity Reaction Status Date / Time cephalexin [From Keflex] Allergy Severe Vomiting/HI Verified 04/22/25 17:14 VES Sulfa (Sulfonamide Allergy Severe VOMITING/HI Verified 04/22/25 17:14 Antibiotics) VES duloxetine [From Cymbalta] AdvReac Severe "BRAIN Verified 04/22/25 17:14 STOPPED" PER PT Home Meds Home Medications Medication Instructions Recorded Confirmed magnesium oxide 400 mg PO DIRECTED PRN MIGRAINE 01/18/22 04/22/25 HEADACHES albuterol sulfate 90 mcg/actuation 1 puff inhalation Q4H PRN Wheezing 09/18/22 04/22/25 aerosol inhaler insulin aspart U-100 100 unit/mL 0 unit subcut TIDM 09/18/22 04/22/25 (3 mL) subcutaneous pen (Novolog FlexPen U-100 Insulin aspart) nabumetone 500 mg tablet 500 mg PO AMHS 09/18/22 04/22/25 pregabalin 150 mg capsule 150 mg PO TID 09/18/22 04/22/25 lorazepam 1 mg tablet 1 mg PO DAILY PRN Anxiety 09/24/23 04/22/25 tirzepatide 7.5 mg/0.5 mL 0 mg subcut WK 09/24/23 04/22/25 subcutaneous pen injector (Mounjaro) daridorexant 25 mg tablet (Quviviq) 25 mg PO HS PRN Insomnia 01/11/25 04/22/25 azelastine 137 mcg (0.1 %) nasal 1 spray intranasal BID 02/18/25 04/22/25 spray insulin glargine 100 unit/mL (3 55 unit subcut BID 04/22/25 04/22/25 mL) subcutaneous pen (Lantus Solostar U-100 Insulin) quetiapine 300 mg tablet,extended 300 mg PO HS 04/22/25 05/14/25 release 24 hr amitriptyline 100 mg tablet 100 mg PO HS 05/14/25 05/14/25 rimegepant 75 mg disintegrating 77 mg PO ONCE PRN Migraine Headache 05/14/25 05/14/25 tablet (Nurtec ODT) ubrogepant 50 mg tablet (Ubrelvy) 50 mg PO UD PRN Migraine Headache 05/14/25 05/14/25 valacyclovir 1 gram tablet 1,000 mg PO QAM 05/14/25 05/14/25 Previous Rx's Medication Instructions Recorded blood sugar diagnostic (OneTouch #100 ea 01/20/22 Verio test strips) lancets 30 gauge (OneTouch Delica #100 ea 01/20/22 Lancets) pen needle,diabetic, disp unit 32 #100 ea 01/20/22 gauge x 5/32", remover and disposal unit Results & Data (ED) Vital Signs Vital Signs - 24 hr 05/14/25 20:46 05/14/25 20:50 05/14/25 22:13 Temperature 37.3 C Temperature Source Oral Pulse Rate 116 H 115 H Pulse Rate [Finger] 111 H Pulse Rhythm Regular Pulse Strength Normal Respiratory Rate 18 18 Respiratory Effort / Characteristics Non-Labored Spontaneous Respiratory Depth Normal Respiratory Pattern Regular Blood Pressure 179/99 H Blood Pressure [Right Arm] 167/99 H Blood Pressure Mean 125 Blood Pressure Mean [Right Arm] 121 Blood Pressure Position Lying Pulse Oximetry 95 98 Oxygen Delivery Method Room Air Room Air Sepsis Recent Fever Within 48 Hours No Sepsis New/Unexplained Change in Mental Status No Sepsis Action Taken by Nursing No Action Required Laboratory Data 05/14/25 20:49 05/14/25 20:49 Lab Results 05/14/25 05/14/25 05/14/25 Range/Units 20:49 20:50 21:00 WBC 6.80 (4.8-10.8) K/ul RBC 5.14 (4.20-5.40) M/uL Hgb 15.6 (12.0-16.0) g/dl POC Hgb 17.0 H (12.0-16.0) g/dl Hct 45.1 (37.0-47.0) % POC Hct 50 H (37-47) % MCV 87.7 (80.0-100.0) fL MCH 30.4 (25.0-34.0) pg MCHC 34.6 (32.0-36.0) g/dL RDW Std Deviation 41.1 (36.4-46.3) fL RDW Coeff of Javier 12.7 (11.5-14.5) % Plt Count 228 (130-400) K/uL MPV 10.9 (9.4-12.4) fL Immature Gran % (Auto) 0.4 % Neut % (Auto) 81.9 % Lymph % (Auto) 14.3 % Cecil % (Auto) 1.5 % Eos % (Auto) 1.2 % Baso % (Auto) 0.7 % Neut # (Auto) 5.57 (1.40-6.50) K/uL Lymph # (Auto) 0.97 L (1.20-3.40) K/uL Cecil # (Auto) 0.10 L (0.11-0.59) K/uL Eos # (Auto) 0.08 (0.00-0.50) K/uL Baso # (Auto) 0.05 (0.00-0.20) K/uL Immature Gran # (Auto) 0.03 (0.01-0.20) K/uL PT 11.2 (9.0-12.0) Seconds INR 1.0 (0.9-1.1) APTT 28 (21-31) Seconds PTT Ratio 1.0 VBG pH (7.36-7.41) VBG pCO2 (38-50) mmHg VBG pO2 mmHg VBG HCO3 mmol/L VBG O2 Saturation % VBG Base Excess mEq/L POC Sodium 129 L (135-144) mmol/L Sodium 125 L (136-145) mmol/L POC Potassium 5.3 H (3.3-5.0) mmol/L Potassium 5.1 (3.5-5.1) mmol/L POC Chloride 96 L (101-112) mmol/L Chloride 91 L (98-107) mmol/L Carbon Dioxide 23 (21-32) mmol/L POC Total CO2 23 L (24-31) mmol/L Anion Gap 11 (3-11) POC Anion Gap 16.0 (16-25) mmol/L POC BUN 25 H (7-18) mg/dl BUN 24 H (6-23) mg/dl Creatinine 1.09 (0.6-1.2) mg/dl POC Creatinine 0.9 (0.6-1.3) mg/dl Est Cr Clr Drug Dosing 63.8 ml/min eGFR 59.25 BUN/Creatinine Ratio 22.0 H (10-20) Glucose 746 H* (70-99(Fasting)) mg/dl POC Glucose > 600 H* (70-99) mg/dl POC Glucose (other) > 700 H* (70-99) mg/dl Calcium 9.1 (8.6-10.3) mg/dl POC Ioniz Calcium Sonido 1.14 (1.12-1.32) mmol/l Magnesium 1.7 (1.7-2.4) mg/dl Total Bilirubin 0.5 (0.2-1.0) mg/dl AST 66 H (13-39) U/L ALT 70 H (7-52) U/L Alkaline Phosphatase 156 H (34-104) U/L Total Protein 7.1 (6.0-8.3) gm/dl Albumin 3.9 (3.4-5.0) gm/dl Globulin 3.2 (2.5-4.0) gm/dl Albumin/Globulin Ratio 1.2 (0.9-2) 05/14/25 Range/Units 21:23 WBC (4.8-10.8) K/ul RBC (4.20-5.40) M/uL Hgb (12.0-16.0) g/dl POC Hgb (12.0-16.0) g/dl Hct (37.0-47.0) % POC Hct (37-47) % MCV (80.0-100.0) fL MCH (25.0-34.0) pg MCHC (32.0-36.0) g/dL RDW Std Deviation (36.4-46.3) fL RDW Coeff of Javier (11.5-14.5) % Plt Count (130-400) K/uL MPV (9.4-12.4) fL Immature Gran % (Auto) % Neut % (Auto) % Lymph % (Auto) % Cecil % (Auto) % Eos % (Auto) % Baso % (Auto) % Neut # (Auto) (1.40-6.50) K/uL Lymph # (Auto) (1.20-3.40) K/uL Cecil # (Auto) (0.11-0.59) K/uL Eos # (Auto) (0.00-0.50) K/uL Baso # (Auto) (0.00-0.20) K/uL Immature Gran # (Auto) (0.01-0.20) K/uL PT (9.0-12.0) Seconds INR (0.9-1.1) APTT (21-31) Seconds PTT Ratio VBG pH 7.39 (7.36-7.41) VBG pCO2 37 L (38-50) mmHg VBG pO2 44 mmHg VBG HCO3 22 mmol/L VBG O2 Saturation 82.8 % VBG Base Excess -2.2 mEq/L POC Sodium (135-144) mmol/L Sodium (136-145) mmol/L POC Potassium (3.3-5.0) mmol/L Potassium (3.5-5.1) mmol/L POC Chloride (101-112) mmol/L Chloride (98-107) mmol/L Carbon Dioxide (21-32) mmol/L POC Total CO2 (24-31) mmol/L Anion Gap (3-11) POC Anion Gap (16-25) mmol/L POC BUN (7-18) mg/dl BUN (6-23) mg/dl Creatinine (0.6-1.2) mg/dl POC Creatinine (0.6-1.3) mg/dl Est Cr Clr Drug Dosing ml/min eGFR BUN/Creatinine Ratio (10-20) Glucose (70-99(Fasting)) mg/dl POC Glucose (70-99) mg/dl POC Glucose (other) (70-99) mg/dl Calcium (8.6-10.3) mg/dl POC Ioniz Calcium Sonido (1.12-1.32) mmol/l Magnesium (1.7-2.4) mg/dl Total Bilirubin (0.2-1.0) mg/dl AST (13-39) U/L ALT (7-52) U/L Alkaline Phosphatase (34-104) U/L Total Protein (6.0-8.3) gm/dl Albumin (3.4-5.0) gm/dl Globulin (2.5-4.0) gm/dl Albumin/Globulin Ratio (0.9-2) Administered Medications Discontinued Medications Diphenhydramine HCl (Diphenhydramine 50 Mg/Ml Vial) 25 mg IV NOW STA Stop: 05/14/25 21:24 Last Admin: 05/14/25 21:34 Dose: 25 mg Documented By: RASTA Sodium Chloride (Nss) 2,000 mls @ 999 mls/hr IV .Q2H1M ONE Stop: 05/14/25 23:04 Last Admin: 05/14/25 21:29 Dose: 999 mls/hr Documented By: RASTA Acetaminophen (Ofirmev) 1,000 mg in 100 mls @ 400 mls/hr IV NOW STA Stop: 05/14/25 21:18 Last Admin: 05/14/25 21:25 Dose: Not Given Documented By: RASTA Prochlorperazine (Compazine) 1 mls @ 1 mls/min IV ONE ONE Stop: 05/14/25 21:24 Last Admin: 05/14/25 21:34 Dose: 1 mls/min Documented By: RASTA Insulin Human Regular (Novolin-R Insulin Per Unit Charge) 5 units SC NOW STA Stop: 05/14/25 22:14 Last Admin: 05/14/25 22:52 Dose: 5 units Documented By: CODY Co-signed By: DONITA Ketorolac Tromethamine (Ketorolac Tromethamine 15 Mg/Ml Vial) 15 mg IV NOW STA Stop: 05/14/25 21:24 Last Admin: 05/14/25 21:31 Dose: 15 mg Documented By: RASTA Ondansetron HCl (Ondansetron Inj 2 Mg/Ml 2 Ml Vial) 4 mg IV NOW STA Stop: 05/14/25 21:05 Last Admin: 05/14/25 21:33 Dose: 4 mg Documented By: RASTA Imaging Data Radiologist's Impression: Head CT 05/14/25 20:52 Exam(s): CT HEAD Without Contrast EXAM: CT Head Without Intravenous Contrast CLINICAL HISTORY: Reason for exam: Head trauma moderate-severe. TECHNIQUE: Axial computed tomography images of the head/brain without intravenous contrast. CTDI is 36.05 mGy and DLP is 546.36 mGy-cm. Automated exposure control was utilized for the study. A dose lowering technique was utilized adhering to the principles of ALARA. COMPARISON: Prior head CT from December 13, 2022. FINDINGS: Brain: Unremarkable. No hemorrhage. No significant white matter disease. No edema. Ventricles: Unremarkable. No ventriculomegaly. Bones/joints: Unremarkable. No acute fracture. Soft tissues: Unremarkable. Sinuses: Unremarkable as visualized. No acute sinusitis. Mastoid air cells: Unremarkable as visualized. No mastoid effusion. IMPRESSION: No evidence of acute intracranial pathology. Electronically signed by: Jesenia Coe MD 05/14/25 23:06 PM Discharge Plan Visit Data Chief Complaint: Headache Stated Complaint: migraine; BG 576 ED Provider: Vero Palacios Discharge Problem: Migraine, Hyperglycemia Condition: Fair Forms Stand Alone Forms: My [employer] Prescriptions Prescriptions: No Action magnesium oxide 400 mg magnesium Capsule 400 mg PO DIRECTED PRN (Reason: MIGRAINE HEADACHES) (DME) pen needle,diabetic, disp unit 32 gauge x 5/32" needle See Rx Instructions .Route Qty: 100 0RF Rx Instructions: As directed (DME) OneTouch Verio test strips Strip See Rx Instructions .Route Qty: 100 0RF Rx Instructions: As directed (DME) lancets [OneTouch Delica Lancets] 30 gauge misc See Rx Instructions .Route Qty: 100 0RF Rx Instructions: As directed nabumetone 500 mg tablet 500 mg PO AMHS insulin aspart U-100 [Novolog FlexPen U-100 Insulin] 100 unit/mL (3 mL) insulin pen 0 unit SUBCUT TIDM Patient Comments: Unable to verify w/ pt at this date/time. 04/22/25 albuterol sulfate 90 mcg/actuation HFA aerosol inhaler 1 puff INHALATION Q4H PRN (Reason: Wheezing) pregabalin 150 mg capsule 150 mg PO TID lorazepam 1 mg tablet 1 mg PO DAILY PRN (Reason: Anxiety) Rx Instructions: PER PT "DON'T HAVE ANY OF THIS MED, DOESN'T ORDER IT IN TIME, THEN RUN OUT". Mounjaro 7.5 mg/0.5 mL pen injector 0 mg SUBCUT WK Patient Comments: Unable to verify w/ pt at this date/time. 04/22/25 Rx Instructions: TUESDAYS Quviviq 25 mg tablet 25 mg PO HS PRN (Reason: Insomnia) azelastine 137 mcg (0.1 %) spray,non-aerosol 1 spray INTRANASAL BID quetiapine 300 mg tablet extended release 24 hr 300 mg PO HS insulin glargine [Lantus Solostar U-100 Insulin] 100 unit/mL (3 mL) insulin pen 55 unit subcut BID amitriptyline 100 mg tablet 100 mg PO HS Ubrelvy 50 mg tablet 50 mg PO UD MDD 2 TABLET IN 24 HOURS PRN (Reason: Migraine Headache) Rx Instructions: TAKE 1 TABLET AT ONSET OF MIGRAINE AND MAY REPEAT IN 2 HOURS IF NEEDED. DO NOT EXCEED 2 TABLETS IN 24 HOURS Nurtec ODT 75 mg tablet,disintegrating 77 mg PO ONCE MDD 1 DOSE IN 24 HOURS PRN (Reason: Migraine Headache) valacyclovir 1 gram tablet 1,000 mg PO QAM Referrals Referrals: Luz Elena Costa, PAIsauraC [Primary Care Provider] -
[2025-05-14] MEDS: NovoLIN-R INSULIN PER UNIT CHARGE SC STA (22:52)
[2025-05-14] MEDS ORDERED: DEXTROSE 50% 50 ML SYRINGE IV PRN (23:02)
[2025-05-14] MEDS ORDERED: GLUCOSE 10 TAB/TUBE PO PRN (23:02)
[2025-05-14] MEDS ORDERED: GLUCAGON FOR INJ 1 MG VIAL SQ PRN (23:02)
[2025-05-14] MEDS ORDERED: GLUCOSE 40% GEL 15 GM TUBE PO PRN (23:02)
--- NOTE | 2025-05-14 23:07 | CT Scan Report ---
Exam(s): CT HEAD Without Contrast EXAM: CT Head Without Intravenous Contrast CLINICAL HISTORY: Reason for exam: Head trauma moderate-severe. TECHNIQUE: Axial computed tomography images of the head/brain without intravenous contrast. CTDI is 36.05 mGy and DLP is 546.36 mGy-cm. Automated exposure control was utilized for the study. A dose lowering technique was utilized adhering to the principles of ALARA. COMPARISON: Prior head CT from December 13, 2022. FINDINGS: Brain: Unremarkable. No hemorrhage. No significant white matter disease. No edema. Ventricles: Unremarkable. No ventriculomegaly. Bones/joints: Unremarkable. No acute fracture. Soft tissues: Unremarkable. Sinuses: Unremarkable as visualized. No acute sinusitis. Mastoid air cells: Unremarkable as visualized. No mastoid effusion. IMPRESSION: No evidence of acute intracranial pathology. Electronically signed by: Jesenia Coe MD 05/14/25 23:06 PM
--- NOTE | 2025-05-14 23:08 | CT Scan Report ---
Exam(s): CT C SPINE EXAM: CT Cervical Spine Without Intravenous Contrast CLINICAL HISTORY: Neck trauma. TECHNIQUE: Axial computed tomography images of the cervical spine without intravenous contrast. CTDI is 24.35 mGy and DLP is 539.08 mGy-cm. Automated exposure control was utilized for the study. A dose lowering technique was utilized adhering to the principles of ALARA. COMPARISON: No relevant prior studies available. FINDINGS: Vertebrae: The vertebral bodies are intact without acute osseous traumatic injury. No anterolisthesis or retrolisthesis is identified. The facet joints are well aligned without subluxation or dislocation. The pedicles, transverse processes and spinous processes are intact. Bilateral chronic facet hypertrophic arthropathy incidentally noted. Discs/spinal canal/neural foramina: Incidental chronic appearing multilevel disc spondylosis noted with narrowing and marginal hypertrophic changes. No significant acute central canal stenosis identified. Soft tissues: No appreciable acute traumatic soft tissue injury identified on this noncontrast examination. Larynx: There is a cystic structure noted between the hyoid bone and the laryngeal cartilage noted at the midline, measuring 2.3 x 2.8 x 3.6 cm. Lung apices: The included lung apices demonstrate no evidence for acute traumatic injury. IMPRESSION: 1. No acute osseous traumatic injury or significant acute traumatic abnormal alignment involving the cervical spine. 2. There is a cystic structure noted between the hyoid bone and the laryngeal cartilage noted at the midline, measuring 2.3 x 2.8 x 3.6 cm. The appearance is consistent with an incidental thyroglossal duct cyst. Electronically signed by: José Acevedo MD 05/14/25 23:08 PM
[2025-05-14] MEDS: DC HOME INSULIN PUMP STA (23:32)
[2025-05-15 00:13] VITALS: BP 158/79; O2SAT 96
[2025-05-15] MEDS: STAT IV Infusion **Titration per Protocol STA (00:15)
--- NOTE | 2025-05-15 00:33 | History & Physical Report ---
Date of Service May 14, 2025 Assessment & Plan (1) Hyperglycemia: Plan: 55-year-old female with past med history significant for type 2 diabetes, hypothyroidism, diabetic neuropathy, dyslipidemia, asthma/COPD overlap syndrome, hypertension, nonalcoholic fatty liver disease, hepatic cirrhosis, fibromyalgia, migraines, bipolar 1 disorder, tobacco use disorder, chronic insomnia, obesity, food insecurity, comes because of severe headaches and found to have hype rglycemia. Patient states having severe headache and her neurologist prescribed prednisone. She took couple of doses today. States prednisone did not help her headaches. Because of her headaches came to the ER. In the ER her sugars were 746. Still having lot of headaches. Vision is not great. No earache or runny nose. No sore throat. No cough. Denies any chest pain or shortness of breath. Has dry mouth and dry throat. Patient's recently had sore throat and she is completing antibiotics. No abdominal pain. Normal bowel and bladder movements. Hemodynamics are okay. Patient was seen here in the hospital earlier this month for pneumonia but signed out AMA. But she says she completed the antibiotic course.Patient is initially does not want to stay because she was worried about her dogs but agreed to stay overnight and states she wants to get discharged early in the morning though advised to stay until blood sugars are better controlled Hyperglycemia [facility] Glucose 746 VBG okay CO2 23 Started on insulin drip protocol for HHS Aggressive fluids per protocol Labs per protocol Will follow HbA1c levels Close monitoring in telemetry Placement pharmacy consult Severe headaches History of migraines CT head no acute findings Cervical spine CT no acute findings but shows incidental thyroglossal duct cyst needs follow-up Pain control Pseudohyponatremia From hyperglycemia Will follow labs Elevated LFTs Will follow repeat labs History of hepatic cirrhosis Asthma/COPD Continue home inhalers Insomnia Ambien nightly Nonalcoholic fatty liver disease Hepatic cirrhosis Not on diuretics Will monitor for volume overload Diabetic neuropathy On amitriptyline and pregabalin Bipolar disorder On Seroquel Hypothyroidism On Synthyroid DVT prophylaxis Lovenox Disposition Telemetry Full code. Addendum: Emily wanted to leavce. Saw the patient. Patient says her headaches improved and feeling fine and want to go home. Advised to stay in hospital as her sugars are still high and if goes home she may go into DKA, coma and even . But she still wanted to go home and willing to take risk and signed out AMA. History of Present Illness Chief Complaint: Headaches and hyperglycemia Primary Care Provider: Luz Elena Costa PA-C 55-year-old female with past med history significant for type 2 diabetes, hypothyroidism, diabetic neuropathy, dyslipidemia, asthma/COPD overlap syndrome, hypertension, nonalcoholic fatty liver disease, hepatic cirrhosis, fibromyalgia, migraines, bipolar 1 disorder, tobacco use disorder, chronic insomnia, obesity, food insecurity, comes because of severe headaches and found to have hyperglycemia. Patient states having severe headache and her neurologist prescribed prednisone. She took couple of doses today. States prednisone did not help her headaches. Because of her headaches came to the ER. In the ER her sugars were 746. Still having lot of headaches. Vision is not great. No earache or runny nose. No sore throat. No cough. Denies any chest pain or shortness of breath. Has dry mouth and dry throat. Patient's recently had sore throat and she is completing antibiotics. No abdominal pain. Normal bowel and bladder movements. Hemodynamics are okay. Patient was seen here in the hospital earlier this month for pneumonia but signed out AMA. But she says she completed the antibiotic course.Patient is initially does not want to stay because she was worried about her dogs but agreed to stay overnight and states she wants to get discharged early in the morning though advised to stay until blood sugars are better controlled Past medical history. As mentioned above Past surgical history. Tubal ligation. Total hip replacement. Reduction of breast. Social history. . Smokes 1.5 pack a day last extremities. Currently no alcohol use.. No drug use. Family history. Father had bipolar disorder. Suicide attempts. Mother had cirrhosis. Depression. Diabetes. Nonalcoholic steatohepatitis. Sister has bipolar disorder. Allergies Allergy/AdvReac Type Severity Reaction Status Date / Time cephalexin [From Keflex] Allergy Severe Vomiting/HI Verified 04/22/25 17:14 VES Sulfa (Sulfonamide Allergy Severe VOMITING/HI Verified 04/22/25 17:14 Antibiotics) VES duloxetine [From Cymbalta] AdvReac Severe "BRAIN Verified 04/22/25 17:14 STOPPED" PER PT Home Medications Medication Instructions Recorded Confirmed Type magnesium oxide 400 mg PO QAM 01/18/22 05/14/25 History blood sugar diagnostic (ShuttlerockTouch #100 ea 01/20/22 05/15/25 Rx Verio test strips) lancets 30 gauge (OneTouch Delica #100 ea 01/20/22 05/15/25 Rx Lancets) pen needle,diabetic, disp unit 32 #100 ea 01/20/22 05/15/25 Rx gauge x 5/32", remover and disposal unit nabumetone 500 mg tablet 500 mg PO AMHS 09/18/22 05/14/25 History pregabalin 150 mg capsule 150 mg PO TID 09/18/22 05/14/25 History daridorexant 25 mg tablet (Quviviq) 25 mg PO HS PRN Insomnia 01/11/25 05/14/25 History insulin glargine 100 unit/mL (3 55 unit subcut BID 04/22/25 05/14/25 History mL) subcutaneous pen (Lantus Solostar U-100 Insulin) quetiapine 300 mg tablet,extended 300 mg PO HS 04/22/25 05/14/25 History release 24 hr albuterol sulfate 90 mcg/actuation 2 puff inhalation Q6 PRN SOB,COUGH 05/14/25 05/14/25 History aerosol inhaler OR WHEEZE amitriptyline 100 mg tablet 100 mg PO HS 05/14/25 05/14/25 History fluticasone propionate 230 2 puff inhalation BID 05/14/25 05/14/25 History mcg-salmeterol 21 mcg/actuation HFA inhaler (Advair HFA) insulin aspart U-100 100 unit/mL 50 unit subcut TIDM 05/14/25 05/14/25 History (3 mL) subcutaneous pen (Novolog FlexPen U-100 Insulin aspart) levothyroxine 50 mcg tablet 50 mcg PO DAILYBB 05/14/25 05/14/25 History lorazepam 1 mg tablet 1 mg PO DAILY PRN Anxiety 05/14/25 05/14/25 History montelukast 10 mg tablet 10 mg PO QAM 05/14/25 05/14/25 History rimegepant 75 mg disintegrating 77 mg PO ONCE PRN Migraine Headache 05/14/25 05/14/25 History tablet (Nurtec ODT) tirzepatide 15 mg/0.5 mL 15 mg subcut WK 05/14/25 05/14/25 History subcutaneous pen injector (Jaswinder) ubrogepant 50 mg tablet (Ubrelvy) 50 mg PO UD PRN Migraine Headache 05/14/25 05/14/25 History valacyclovir 1 gram tablet 1,000 mg PO QAM 05/14/25 05/14/25 History zolpidem 10 mg tablet 10 mg PO HS PRN Sleep 05/14/25 05/14/25 History Past Med/Surg History Problem List (Updated 05/14/25 @ 22:27 by Vero Palacios MD) Hyperglycemia (Acute) Migraine (Acute) Mitral regurgitation NSTEMI (non-ST elevated myocardial infarction) (Acute) Drug-seeking behavior (Acute) Dysesthesia Loss of protective sensation of skin of foot Diabetic peripheral neuropathy associated with type 2 diabetes mellitus HLD (hyperlipidemia) Anxiety (Acute) Fatty liver HLD (hyperlipidemia) Medical History History of pancreatitis Elevated LFTs Tobacco abuse Hypothyroidism Hx of migraines Surgical History History of bilateral hip arthroplasty History of reduction mammoplasty Family History Mother CAMPUZANO (nonalcoholic steatohepatitis) Father Bipolar disorder Social History Smoking Status: Current every day smoker Tobacco Type: Cigarettes packs per day: 1; Cigarettes Per Day: 1/2 ppd; Second Hand Exposure: No; Do You Dip or Chew Tobacco: No; Hx Alcohol Use: Yes Preferred Language: Japanese Communication Ability: Effective Draughtsman Required: No Beliefs That Will Affect Care: None marital status: Single Current Living Situation: Alone Feels Safe at Home: Yes Assistive Devices: None Review of Systems Review of Systems: All systems reviewed & are unremarkable except as noted in HPI & below Physical Exam Physical Exam: General- Not in distress Head- atraumatic Eyes- PERRL. ENT- oropharynx clear Neck- supple, no JVD. Lungs- clear to auscultation no wheezing or crackles. Heart- regular rhythm; no murmur, no gallop. Abdomen- normal bowel sounds, soft, nontender, no distension Extremities- no pretibial edema, no erythema seen Neuro- alert, oriented PERRL, no facial palsy; no dysarthria; moves extremities Results & Data Results & Data Vital Signs (Past 12 Hours) Vital Signs Temp Pulse Pulse Resp BP BP Pulse Ox 05/14/25 22:13 111 H 18 167/99 H 98 05/14/25 20:50 37.3 C 115 H 18 179/99 H 95 05/14/25 20:46 116 H O2 Del Method 05/14/25 22:13 Room Air 05/14/25 20:50 Room Air 05/14/25 20:46 Diagnostic Findings Laboratory Results WBC 6.80 K/ul (4.8-10.8) 05/14/25 20: RBC 5.14 M/uL (4.20-5.40) 05/14/25 20:49 Hgb 15.6 g/dl (12.0-16.0) 05/14/25 20:49 POC Hgb 17.0 g/dl (12.0-16.0) H 05/14/25 21:00 Hct 45.1 % (37.0-47.0) 05/14/25 20:49 POC Hct 50 % (37-47) H 05/14/25 21:00 MCV 87.7 fL (80.0-100.0) 05/14/25 20:49 MCH 30.4 pg (25.0-34.0) 05/14/25 20:49 MCHC 34.6 g/dL (32.0-36.0) 05/14/25 20:49 RDW Std Deviation 41.1 fL (36.4-46.3) 05/14/25 20:49 RDW Coeff of Javier 12.7 % (11.5-14.5) 05/14/25 20:49 Plt Count 228 K/uL (130-400) 05/14/25 20:49 MPV 10.9 fL (9.4-12.4) 05/14/25 20:49 Immature Gran % (Auto) 0.4 % 05/14/25 20:49 Neut % (Auto) 81.9 % 05/14/25 20:49 Lymph % (Auto) 14.3 % 05/14/25 20:49 Morrow % (Auto) 1.5 % 05/14/25 20:49 Eos % (Auto) 1.2 % 05/14/25 20:49 Baso % (Auto) 0.7 % 05/14/25 20:49 Neut # (Auto) 5.57 K/uL (1.40-6.50) 05/14/25 20:49 Lymph # (Auto) 0.97 K/uL (1.20-3.40) L 05/14/25 20:49 Morrow # (Auto) 0.10 K/uL (0.11-0.59) L 05/14/25 20:49 Eos # (Auto) 0.08 K/uL (0.00-0.50) 05/14/25 20:49 Baso # (Auto) 0.05 K/uL (0.00-0.20) 05/14/25 20:49 Immature Gran # (Auto) 0.03 K/uL (0.01-0.20) 05/14/25 20:49 PT 11.2 Seconds (9.0-12.0) 05/14/25 20:49 INR 1.0 (0.9-1.1) 05/14/25 20:49 APTT 28 Seconds (-31) 05/14/25 20:49 PTT Ratio 1.0 05/14/25 20:49 VBG pH 7.39 (7.36-7.41) 05/14/25 21:23 VBG pCO2 37 mmHg (38-50) L 05/14/25 21:23 VBG pO2 44 mmHg 05/14/25 21:23 VBG HCO3 22 mmol/L 05/14/25 21:23 VBG O2 Saturation 82.8 % 05/14/25 21:23 VBG Base Excess -2.2 mEq/L 05/14/25 21:23 POC Sodium 129 mmol/L (135-144) L 05/14/25 21:00 Sodium 125 mmol/L (136-145) L 05/14/25 20:49 POC Potassium 5.3 mmol/L (3.3-5.0) H 05/14/25 21:00 Potassium 5.1 mmol/L (3.5-5.1) 05/14/25 20:49 POC Chloride 96 mmol/L (101-112) L 05/14/25 21:00 Chloride 91 mmol/L (98-107) L 05/14/25 20:49 Carbon Dioxide 23 mmol/L (21-32) 05/14/25 20:49 POC Total CO2 23 mmol/L (24-31) L 05/14/25 21:00 Anion Gap 11 (3-11) 05/14/25 20:49 POC Anion Gap 16.0 mmol/L (16-25) 05/14/25 21:00 POC BUN 25 mg/dl (7-18) H 05/14/25 21:00 BUN 24 mg/dl (6-23) H 05/14/25 20:49 Creatinine 1.09 mg/dl (0.6-1.2) 05/14/25 20:49 POC Creatinine 0.9 mg/dl (0.6-1.3) 05/14/25 21:00 Est Cr Clr Drug Dosing 63.8 ml/min 05/14/25 20:49 eGFR 59.25 05/14/25 20:49 BUN/Creatinine Ratio 22.0 (10-20) H 05/14/25 20:49 Glucose 746 mg/dl (70-99(Fasting)) H* 05/14/25 20:49 POC Glucose 594 mg/dl (70-99) H* 05/14/25 23:44 POC Glucose (other) > 700 mg/dl (70-99) H* 05/14/25 21:00 Calcium 9.1 mg/dl (8.6-10.3) 05/14/25 20:49 POC Ioniz Calcium Sonido 1.14 mmol/l (1.12-1.32) 05/14/25 21:00 Magnesium 1.7 mg/dl (1.7-2.4) 05/14/25 20:49 Total Bilirubin 0.5 mg/dl (0.2-1.0) 05/14/25 20:49 AST 66 U/L (13-39) H 05/14/25 20:49 ALT 70 U/L (7-52) H 05/14/25 20:49 Alkaline Phosphatase 156 U/L (34-104) H 05/14/25 20:49 Total Protein 7.1 gm/dl (6.0-8.3) 05/14/25 20:49 Albumin 3.9 gm/dl (3.4-5.0) 05/14/25 20:49 Globulin 3.2 gm/dl (2.5-4.0) 05/14/25 20:49 Albumin/Globulin Ratio 1.2 (0.9-2) 05/14/25 20:[address] 05/14/25 20:52 Exam(s): CT C SPINE EXAM: CT Cervical Spine Without Intravenous Contrast CLINICAL HISTORY: Neck trauma. TECHNIQUE: Axial computed tomography images of the cervical spine without intravenous contrast. CTDI is 24.35 mGy and DLP is 539.08 mGy-cm. Automated exposure control was utilized for the study. A dose lowering technique was utilized adhering to the principles of ALARA. COMPARISON: No relevant prior studies available. FINDINGS: Vertebrae: The vertebral bodies are intact without acute osseous traumatic injury. No anterolisthesis or retrolisthesis is identified. The facet joints are well aligned without subluxation or dislocation. The pedicles, transverse processes and spinous processes are intact. Bilateral chronic facet hypertrophic arthropathy incidentally noted. Discs/spinal canal/neural foramina: Incidental chronic appearing multilevel disc spondylosis noted with narrowing and marginal hypertrophic changes. No significant acute central canal stenosis identified. Soft tissues: No appreciable acute traumatic soft tissue injury identified on this noncontrast examination. Larynx: There is a cystic structure noted between the hyoid bone and the laryngeal cartilage noted at the midline, measuring 2.3 x 2.8 x 3.6 cm. Lung apices: The included lung apices demonstrate no evidence for acute traumatic injury. IMPRESSION: 1. No acute osseous traumatic injury or significant acute traumatic abnormal alignment involving the cervical spine. 2. There is a cystic structure noted between the hyoid bone and the laryngeal cartilage noted at the midline, measuring 2.3 x 2.8 x 3.6 cm. The appearance is consistent with an incidental thyroglossal duct cyst. Electronically signed by: José Acevedo MD 05/14/25 23:[address] 05/14/25 20:52 Exam(s): CT HEAD Without Contrast EXAM: CT Head Without Intravenous Contrast CLINICAL HISTORY: Reason for exam: Head trauma moderate-severe. TECHNIQUE: Axial computed tomography images of the head/brain without intravenous contrast. CTDI is 36.05 mGy and DLP is 546.36 mGy-cm. Automated exposure control was utilized for the study. A dose lowering technique was utilized adhering to the principles of ALARA. COMPARISON: Prior head CT from December 13, 2022. FINDINGS: Brain: Unremarkable. No hemorrhage. No significant white matter disease. No edema. Ventricles: Unremarkable. No ventriculomegaly. Bones/joints: Unremarkable. No acute fracture. Soft tissues: Unremarkable. Sinuses: Unremarkable as visualized. No acute sinusitis. Mastoid air cells: Unremarkable as visualized. No mastoid effusion. IMPRESSION: No evidence of acute intracranial pathology. Electronically signed by: Jesenia Coe MD 05/14/25 23:06 PM Code Status & VTE Plan VTE Prophylaxis Plan VTE Prophylaxis will be ordered: Yes
[2025-05-15] MEDS: INSULIN REGULAR 250 UNITS in SODIUM CHLORIDE 0.9% 247.5 ML IV SCH (00:34)
[2025-05-15] MEDS: MoRPHine SULFATE 4 MG/ML 1 ML CARP\\VIAL IV STA (00:36)
[2025-05-15 00:45] VITALS: PULSE 108
[2025-05-15] MEDS ORDERED: STAT IV Infusion **Titration per Protocol STA (01:23)
[2025-05-15] MEDS ORDERED: ZOLPIDEM TARTRATE 5 MG TAB PO PRN (01:23)
[2025-05-15] MEDS ORDERED: HYDROmorphone INJ 0.5 MG/0.5 ML SYR IV PRN (01:23)
[2025-05-15] MEDS ORDERED: ALBUTEROL HFA 8 GM INHALER INH PRN (01:23)
[2025-05-15] MEDS ORDERED: HHS GOAL RANGE 250-350 mg/dl ONE (01:23)
[2025-05-15] MEDS ORDERED: ONDANSETRON INJ 2 MG/ML 2 ML VIAL IV PRN (01:23)
[2025-05-15] MEDS ORDERED: PHARMACY GLYCEMIC MGMT CONSULT PRN (01:23)
[2025-05-15] MEDS ORDERED: LORazepam 1 MG TAB PO PRN (01:23)
[2025-05-15] MEDS ORDERED: INSULIN REGULAR 250 UNITS in SODIUM CHLORIDE 0.9% 247.5 ML IV SCH (01:23)
[2025-05-15] MEDS ORDERED: SODIUM CHLORIDE 0.9% 1,000 ML IV SCH (01:23)
[2025-05-15] MEDS ORDERED: NITROGLYCERIN SL 0.4 MG/TAB TAB SL PRN (01:23)
[2025-05-15] MEDS ORDERED: PENDING 1/2NSS+20mEq KCL IVF SCH (02:00)
[2025-05-15] MEDS ORDERED: PENDING D5 1/2NS+20mEq KCL IVF SCH (02:00)
[2025-05-15 02:45] LABS: Anion Gap 11.0 (3-11); Blood Urea Nitrogen 23.0 mg/dl (6-23); Calcium 8.8 mg/dl (8.6-10.3); Carbon Dioxide 21.0 mmol/L (21-32); Chloride 99.0 mmol/L (98-107); Creatinine Clr Calc Pharmacy 79.1 ml/min; Glucose 427.0 mg/dl (70-99(Fasting)); Magnesium 1.7 mg/dl (1.7-2.4); Potassium 4.3 mmol/L (3.5-5.1); Sodium 131.0 mmol/L (136-145)
[2025-05-15] MEDS ORDERED: INSULIN ASPART PER UNIT CHARGE SC SCH (07:30)
--- NOTE | 2025-05-15 08:41 | Discharge Summary ---
Date of Service May 15, 2025 Admission HPI Per Admitting Provider 55-year-old female with past med history significant for type 2 diabetes, hypothyroidism, diabetic neuropathy, dyslipidemia, asthma/COPD overlap syndrome, hypertension, nonalcoholic fatty liver disease, hepatic cirrhosis, fibromyalgia, migraines, bipolar 1 disorder, tobacco use disorder, chronic insomnia, obesity, food insecurity, comes because of severe headaches and found to have hyperglycemia. Patient states having severe headache and her neurologist prescribed prednisone. She took couple of doses today. States prednisone did not help her headaches. Because of her headaches came to the ER. In the ER her sugars were 746. Still having lot of headaches. Vision is not great. No earache or runny nose. No sore throat. No cough. Denies any chest pain or shortness of breath. Has dry mouth and dry throat. Patient's recently had sore throat and she is completing antibiotics. No abdominal pain. Normal bowel and bladder movements. Hemodynamics are okay. Patient was seen here in the hospital earlier this month for pneumonia but signed out AMA. But she says she completed the antibiotic course.Patient is initially does not want to stay because she was worried about her dogs but agreed to stay overnight and states she wants to get discharged early in the morning though advised to stay until blood sugars are better controlled Past medical history. As mentioned above Past surgical history. Tubal ligation. Total hip replacement. Reduction of breast. Social history. . Smokes 1.5 pack a day last extremities. Currently no alcohol use.. No drug use. Family history. Father had bipolar disorder. Suicide attempts. Mother had cirrhosis. Depression. Diabetes. Nonalcoholic steatohepatitis. Sister has bipolar disorder. Principal Diagnosis hyperglycemia/HHS Discharge Data Allergies Allergy/AdvReac Type Severity Reaction Status Date / Time cephalexin [From Keflex] Allergy Severe Vomiting/HI Verified 04/22/25 17:14 VES Sulfa (Sulfonamide Allergy Severe VOMITING/HI Verified 04/22/25 17:14 Antibiotics) VES duloxetine [From Cymbalta] AdvReac Severe "BRAIN Verified 04/22/25 17:14 STOPPED" PER PT Consultations 05/14/25 22:55 ED Decision to Admit Stat Ordered Studies 05/14/25 20:52 CT cervical spine wo con Stat CT head/brain wo con Stat Hospital Course (1) Hyperglycemia: Signed out AMA (1) Hyperglycemia: Plan: 55-year-old female with past med history significant for type 2 diabetes, hypothyroidism, diabetic neuropathy, dyslipidemia, asthma/COPD overlap syndrome, hypertension, nonalcoholic fatty liver disease, hepatic cirrhosis, fibromyalgia, migraines, bipolar 1 disorder, tobacco use disorder, chronic insomnia, obesity, food insecurity, comes because of severe headaches and found to have hyperglycemia. Patient states having severe headache and her neurologist pr escribed prednisone. She took couple of doses today. States prednisone did not help her headaches. Because of her headaches came to the ER. In the ER her sugars were 746. Still having lot of headaches. Vision is not great. No earache or runny nose. No sore throat. No cough. Denies any chest pain or shortness of breath. Has dry mouth and dry throat. Patient's recently had sore throat and she is completing antibiotics. No abdominal pain. Normal bowel and bladder movements. Hemodynamics are okay. Patient was seen here in the hospital earlier this month for pneumonia but signed out AMA. But she says she completed the antibiotic course.Patient is initially does not want to stay because she was worried about her dogs but agreed to stay overnight and states she wants to get discharged early in the morning though advised to stay until blood sugars are better controlled Hyperglycemia [facility] Glucose 746 VBG okay CO2 23 Started on insulin drip protocol for HHS Aggressive fluids per protocol Labs per protocol Will follow HbA1c levels Close monitoring in telemetry Placement pharmacy consult Severe headaches History of migraines CT head no acute findings Cervical spine CT no acute findings but shows incidental thyroglossal duct cyst needs follow-up Pain control Pseudohyponatremia From hyperglycemia Will follow labs Elevated LFTs Will follow repeat labs History of hepatic cirrhosis Asthma/COPD Continue home inhalers Insomnia Ambien nightly Nonalcoholic fatty liver disease Hepatic cirrhosis Not on diuretics Will monitor for volume overload Diabetic neuropathy On amitriptyline and pregabalin Bipolar disorder On Seroquel Hypothyroidism On Synthyroid DVT prophylaxis Lovenox Disposition Telemetry Full code. Addendum: Patient wanted to leave. Saw the patient. Patient says her headaches improved and feeling fine and want to go home. Advised to stay in hospital as her sugars are still high and if goes home she may go into DKA, coma and even . But she still wanted to go home and willing to take risk and signed out AMA. Total Time Total Time Spent Total Time Spent (In Minutes): 35 minutes Discharge Plan Discharge Items Patient Disposition: Against Medical Advice Reason For Visit: HYPERGLYCEMIA, HHS, HEADACHE Condition on Discharge: Fair Activity: As commented below Activity Comment: per PCP Non-emergency contact: Primary Care Provider Follow-up/Referrals: Luz Elena Costa, MEENU [Primary Care Provider] - Pending Studies at Discharge: No Stand-Alone Forms: My en[employer]ista, Smoking Cessation Medications and DC Order Prescriptions: Continued magnesium oxide 400 mg magnesium Capsule 400 mg PO QAM pregabalin 150 mg capsule 150 mg PO TID Quviviq 25 mg tablet 25 mg PO HS PRN (Reason: Insomnia) quetiapine 300 mg tablet extended release 24 hr 300 mg PO HS insulin glargine [Lantus Solostar U-100 Insulin] 100 unit/mL (3 mL) insulin pen 55 unit subcut BID amitriptyline 100 mg tablet 100 mg PO HS Ubrelvy 50 mg tablet 50 mg PO UD MDD 2 TABLET IN 24 HOURS PRN (Reason: Migraine Headache) Rx Instructions: TAKE 1 TABLET AT ONSET OF MIGRAINE AND MAY REPEAT IN 2 HOURS IF NEEDED. DO NOT EXCEED 2 TABLETS IN 24 HOURS Nurtec ODT 75 mg tablet,disintegrating 77 mg PO ONCE MDD 1 DOSE IN 24 HOURS PRN (Reason: Migraine Headache) valacyclovir 1 gram tablet 1,000 mg PO QAM lorazepam 1 mg tablet 1 mg PO DAILY PRN (Reason: Anxiety) fluticasone propion-salmeterol [Advair HFA] 230-21 mcg/actuation HFA aerosol inhaler 2 puff INHALATION BID zolpidem 10 mg tablet 10 mg PO HS PRN (Reason: Sleep) albuterol sulfate 90 mcg/actuation HFA aerosol inhaler 2 puff INHALATION Q6 PRN (Reason: SOB,COUGH OR WHEEZE) Mounjaro 15 mg/0.5 mL pen injector 15 mg SUBCUT WK Rx Instructions: tuesdays levothyroxine 50 mcg tablet 50 mcg PO DAILYBB montelukast 10 mg tablet 10 mg PO QAM insulin aspart U-100 [Novolog FlexPen U-100 Insulin] 100 unit/mL (3 mL) insulin pen 50 unit SUBCUT TIDM Discontinued nabumetone 500 mg tablet 500 mg PO AMHS No Action (DME) pen needle,diabetic, disp unit 32 gauge x 5/32" needle See Rx Instructions .Route Qty: 100 0RF Rx Instructions: As directed (DME) OneTouch Verio test strips Strip See Rx Instructions .Route Qty: 100 0RF Rx Instructions: As directed (DME) lancets [OneTouch Delica Lancets] 30 gauge misc See Rx Instructions .Route Qty: 100 0RF Rx Instructions: As directed Discharge Orders: Left Against Medical Advice (Routine); Ordered 05/15/25 Ordered By: Vladimir Trinidad Admission Data Admit Date/Time: 05/14/25 23:55 Attending Provider: Arcadio Jones Admit Provider: Vladimir Trinidad Primary Care Provider: Luz Elena Costa Other Providers: Vladimir Trinidad
[2025-05-15] MEDS ORDERED: FLUTICASONE/VILANTEROL 200/25MCG 14 PUFFS/INHALER INH SCH (09:00)
[2025-05-15] MEDS ORDERED: MAGNESIUM OXIDE 400 MG TAB PO SCH (09:00)
[2025-05-15] MEDS ORDERED: ENOXAPARIN INJ 40 MG/0.4 ML SYR SQ SCH (09:00)
[2025-05-15] MEDS ORDERED: PREGABALIN 150 MG CAP PO SCH (09:00)
[2025-05-15] MEDS ORDERED: AMITRIPTYLINE HCL 100 MG TAB PO SCH (21:00)
== END 2025-05-15 02:30 | disposition left against medical advice (07) | DRG 639 ==
LOC: ED 20:41 → EDINP 23:55